=== PATIENT | male | born 1945 | race African-American/Black ===

== ENCOUNTER 2019-12-04 12:45 | Inpatient (IN) | payer MEDICARE, MEDICAID ==
[~2019-12-04] VITALS: Ht 170.2 cm; Wt 75.7 kg
--- NOTE | 2019-12-04 13:00 | NUR ---
BRANDON MILIAN 73 YEAR OLD MALE FROM [facility] FOR G TUBE REPLACEMENT. ALERT AND ORIENTED X1-2, BREATHING EVEN AND UNLABORED, ON CONTINUOUS O2 AT 2 LPM. NOTED WITH G-TUBE SITE. NOTED WITH F/C. NOTED WITH RIGHT FOOT SORE AND KERLIX WRAP. WAITING TO BE SEEN BY
--- NOTE | 2019-12-04 13:14 | NUR ---
CALLED NURSING SUP FOR M/S BED.
[2019-12-04 13:16] LABS: APPEARANCE,URINE Clear (CLEAR); BILIRUBIN,URINE MODERATE (NEGATIVE); BLOOD, URINE Large Ery/uL (NEGATIVE); COLOR,URINE Yellow (YELLOW); KETONES,URINE Trace (NEGATIVE); LEUKOCYTE ESTERASE ,URINE Trace (NEGATIVE); NITRITE, URINE Negative (NEGATIVE); PROTEIN,URINE 100 mg/dl (NEGATIVE); UGLUCOSE Negative (NEGATIVE)
[2019-12-04] MEDS ORDERED: IV NS 0.9% 1,000 ML BAG IV ONE ×2 (13:30→14:30)
--- NOTE | 2019-12-04 13:38 | NUR ---
PAGED [facility].
--- NOTE | 2019-12-04 13:40 | NUR ---
NURSING SUP GAVE M/S BED 119-2.
[2019-12-04 13:57] LABS: BASOPHILS % (AUTO) 0.1 % (0.0-2.0); HEMATOCRIT 34 % (39-51); HEMOGLOBIN 10.8 g/dL (13.5-17.5); LYMPHOCYTES # (AUTO) 0.5 /CMM (0.8-4.8); LYMPHOCYTES % (AUTO) 2.2 % (20.0-44.0); MEAN CORPUSCULAR HGB CONC 32 g/dl (31.0-36.0); MEAN CORPUSCULAR VOLUME 90 fL (80-96); NEUTROPHILS # (AUTO) 23.4 /CMM (1.8-8.9); NEUTROPHILS % (AUTO) 93.7 % (43.0-81.0); PLATELET COUNT (AUTO) 568 /CMM (150-450); RED BLOOD CELL COUNT(AUTO) 3.72 MIL/uL (4.5-6.0)
[2019-12-04] MEDS ORDERED: LACT-209 (14:02)
[2019-12-04] MEDS ORDERED: CRAN400C GT (14:02)
[2019-12-04] MEDS ORDERED: RISP0.5T20 GT (14:02)
[2019-12-04] MEDS ORDERED: ASPI-605 GT (14:02)
[2019-12-04] MEDS ORDERED: MEMA10TA GT (14:02)
[2019-12-04] MEDS ORDERED: ZINC1CAP3 GT (14:02)
[2019-12-04] MEDS ORDERED: PHEN100C4 GT (14:02)
[2019-12-04] MEDS ORDERED: MULT-439 GT (14:02)
[2019-12-04] MEDS ORDERED: LISI40TA4 GT (14:02)
[2019-12-04] MEDS ORDERED: LEVE500T9 GT (14:02)
[2019-12-04] MEDS ORDERED: LORA-259 GT (14:02)
[2019-12-04] MEDS ORDERED: IPRA3AMP23 IH (14:02)
[2019-12-04] MEDS ORDERED: HYDR-4384 GT (14:02)
[2019-12-04] MEDS ORDERED: FAMO-131 GT (14:02)
[2019-12-04] MEDS ORDERED: AMLO10TA4 GT (14:02)
[2019-12-04] MEDS ORDERED: ASCO500C16 GT (14:02)
[2019-12-04] MEDS ORDERED: ACET325T53 MC (14:02)
[2019-12-04] MEDS ORDERED: APIX5TAB4 GT (14:02)
[2019-12-04] MEDS ORDERED: AMIN30LI2 GT (14:02)
[2019-12-04 14:06] LABS: BACTERIA,URINE None seen /HPF (None Seen); RBC,URINE 51-80 /HPF (0-2); SQUAMOUS EPITHELIAL CELL,UR Moderate /HPF (None Seen); WBC,URINE 0-2 /HPF (0-3)
[2019-12-04 14:09] LABS: ALANINE AMINOTRANSFERASE 29 U/L (12-78); ALBUMIN 2.1 g/dL (3.4-5.0); ALKALINE PHOSPHATASE 183 U/L (46-116); ASPARTATE AMINOTRANSFERASE 38 U/L (15-37); BILIRUBIN,DIRECT 0.6 mg/dL (0.0-0.2); BILIRUBIN,TOTAL 0.9 mg/dL (0.2-1.0); CALCIUM, SERUM 8.9 mg/dL (8.5-10.1); CARBON DIOXIDE 26 mmol/L (21-32); CHLORIDE 98 mmol/L (98-107); CREATININE 3.2 mg/dL (0.6-1.3); GLUCOSE 134 mg/dL (74-106); SODIUM SERUM 137 mmol/L (136-145); TOTAL PROTEIN, SERUM 7.8 g/dL (6.4-8.2)
[2019-12-04 14:21] LABS: UREA NITROGEN, BLOOD 85 mg/dL (7-18)
[2019-12-04] MEDS ORDERED: PIPERACILLIN /TAZOBACTAM 3.375 G in IV D5W 50 ML IV ONE (14:30)
[2019-12-04] MEDS ORDERED: VANCOMYCIN 1 GM in IV D5W 250 ML IV ONE (14:30)
[2019-12-04 14:39] LABS: PHENYTOIN (DILANTIN) 3.6 ug/ml (10.0-20.0)
[2019-12-04] MEDS ORDERED: IV D5/0.45 NACL 1,000 ML IV PRN (15:53)
[2019-12-04] MEDS ORDERED: MAGNESIUM HYDROXIDE 30 ML UDC PO PRN (16:00)
[2019-12-04] MEDS ORDERED: Z GUARD REMEDY 2 OZ OINT TP PRN (16:00)
[2019-12-04] MEDS ORDERED: MAG HYDROX/AL HYDROX/SIMETH 30 ML UDC PO PRN (16:00)
[2019-12-04] MEDS ORDERED: LORAZEPAM 1 MG TABLET GT PRN (16:00)
[2019-12-04] MEDS ORDERED: ONDANSETRON HCL/PF 4 MG/2 ML VIAL IVP PRN (16:00)
[2019-12-04] MEDS ORDERED: HYDROCODONE/APAP 5/325MG 1 EACH TABLET GT PRN (16:00)
[2019-12-04] MEDS ORDERED: ACETAMINOPHEN 325 MG TABLET PO PRN (16:00)
[2019-12-04] MEDS ORDERED: Medication Not On Formulary EA (Ipratropium/Albuterol Sulfate (Duoneb 2.5-0.5 Mg/3 Ml So IH PRN (16:00)
[2019-12-04] MEDS ORDERED: ACETAMINOPHEN 650 MG/20.3 ML UDC GT PRN (16:30)
[2019-12-04] MEDS ORDERED: MAG HYDROX/AL HYDROX/SIMETH 30 ML UDC GT PRN (16:41)
[2019-12-04] MEDS ORDERED: MAGNESIUM HYDROXIDE 30 ML UDC GT PRN (16:42)
[2019-12-04 16:43] LABS: BAND % (MANUAL) 69 % (0.0-5.0); LYMPHOCYTES % (MANUAL) 3 % (16-48); MONOCYTES % (MANUAL) 1 % (0-11.0); NEUTROPHILS % (MANUAL) 27 (42-76)
[2019-12-04] MEDS: MEMANTINE HCL 5 MG TABLET GT SCH (17:00)
[2019-12-04] MEDS ORDERED: Medication Not On Formulary EA (Cranberry 400 MG) GT SCH (17:00)
[2019-12-04] MEDS ORDERED: IPRATROPIUM NEB FS 0.5 MG/2.5 ML AMPUL.NEB NEB PRN (17:00)
[2019-12-04] MEDS ORDERED: ALBUTEROL FS 2.5 MG/3 ML VIAL.NEB NEB PRN (17:00)
--- NOTE | 2019-12-04 17:12 | NUR ---
REPORT GIVEN TO FIFI IN JAZZY TO CONTINUE LUISA
[2019-12-04] MEDS ORDERED: ONDANSETRON HCL/PF 4 MG/2 ML VIAL IVP ONE (17:30)
[2019-12-04] MEDS ORDERED: MORPHINE SULFATE INJ 2 MG/ML DISP.SYRIN IV ONE (17:30)
[2019-12-04 18:00] VITALS: BP 94/56
[2019-12-04] MEDS ORDERED: FEE PK DOSING 1 MIN EA MC ONE (18:06)
--- NOTE | 2019-12-04 18:57 | NUR ---
REPORT RN REPORT TAKEN FROM AINSLEY IN EMERGENCY ROOM PT PT ADMITTED UNDER [place] [facility] FOR PEG DISLODGEMENT AND IR GUIDED REPLACEMENT. PT AxO 1 NAME VARIOUS WOUNDS ABDOMINAL SORES ALL OVER BODY PHOTOS TAKEN IN CHART, PT HAS TWO PIV RIGHT AND LEFT 20 G ARMS WILL GIVE RN REPORTTO PHARMACIST HELPER RN.
--- NOTE | 2019-12-04 19:20 | NUR ---
JAZZY RN OPENING NOTES RECEIVED PATIENT IN BED, AWAKE, A/OX1. APPEARS LETHARGIC. ON TELE MONITOR AFIB WITH HR 160'S-180'S, AM RN MADE AWARE AND ORDERED STAT EKG. ON OXYGEN 2L VIA NASAL CANNULA, TOLERATING WELL, NO SOB OR RESPIRATORY DISTRESS NOTED. SKIN IS COOL TO TOUCH, WARM BLANKET GIVEN. NG TUBE ON RIGHT NARE WITH BROWN COLORED DRAIN NOTED, CLAMPED. GTUBE SITE NOTED LEAKING, WILL CHANGE DRESSING PRN, CLAMPED. IV SITE LEFT AC 20G AND RIGHT AC 20G, BOTH FLUSHING AND PATENT, SALINE LOCKED, SITES C/D/I. SAFETY MEASURES IN PLACE; CALL LIGHT WITHIN REACH, SIDE RAILS UP X2, HOB ELEVATED, BED LOCKED AND IN LOWEST POSITION. WILL CONTINUE TO MONITOR CLOSELY.
--- NOTE | 2019-12-04 19:35 | NUR ---
PT NOT ON UNIT AT 1700 OR 1730 NO MEDICATIONS GIVEN
--- NOTE | 2019-12-04 19:56 | NUR ---
JAZZY RN NOTES PATIENT STAT EKG RESULT SENT TO RENT AND MISCELLANEOUS REMITTANCE CLERK HOSPITALIST. AWAITING FOR RESPONSE.
[2019-12-04 20:00] VITALS: BP 95/65
[2019-12-04] MEDS ORDERED: IV NS 0.9% 250 ML IV ONE (20:30)
--- NOTE | 2019-12-04 20:32 | NUR ---
JAZZY RN NOTES CRITICAL LAB CALLED BY HUONG LACTIC ACID 2.5; RADIO FREQUENCY ENGINEER HOSPITALIST MADE AWARE. AWAITING FOR RESPONSE.
[2019-12-04] MEDS: MEROPENEM 500 MG in IV NS 0.9% 50 ML IV SCH (20:43)
--- NOTE | 2019-12-04 20:55 | NUR ---
JAZZY RN NOTES SOCKET PULLER HOSPITALIST ORDERED 250ML BOLUS, PATIENT BP 97/54 STATUS POST 250ML BOLUS. NO NEW ORDERS NOTED.
[2019-12-04] MEDS ORDERED: APIXABAN 5 MG TABLET GT SCH (21:00)
[2019-12-04] MEDS: LEVETIRACETAM SOL (5 ML) 100 MG/ML UDC GT SCH (21:14)
[2019-12-04] MEDS: FAMOTIDINE (20 MG) 20 MG TABLET GT SCH (21:14)
[2019-12-04] MEDS: PHENYTOIN SUSP UDC 100 MG/4 ML UDC GT SCH (21:14)
[2019-12-04] MEDS: risperiDONE LIQUID 1 MG/ML ML GT SCH (21:15)
[2019-12-04] MEDS ORDERED: DILTIAZEM HCL 25 MG IV IV ONE (23:00)
[2019-12-05] VITALS: BP 109/67
--- NOTE | 2019-12-05 00:12 | NUR ---
JAZZY RN NOTES PATIENT NOTED WITH LOW URINE OUTPUT, 40ML SINCE 1930. LE CATH FLUSHING AND PATENT. CHECKED WITH BLADDER SCANNER SHOWED 120ML. CHARGE NURSE MADE AWARE AND STATED TO CONTINUE MONITORING. WILL CONT TO MONITOR PT CLOSELY.
--- NOTE | 2019-12-05 03:59 | NUR ---
JAZZY RN NOTES PATIENT STILL HAVE LOW URINE OUTPUT. SUIT ATTENDANT HOSPITALIST MADE AWARE. NNO NOTED. WILL CONT TO MONITOR PT.
[2019-12-05 04:00] VITALS: BP 120/71
[2019-12-05] MEDS: PHENYTOIN SUSP UDC 100 MG/4 ML UDC GT SCH ×3 (05:54→20:33)
--- NOTE | 2019-12-05 06:50 | NUR ---
JAZZY RN CLOSING NOTES PATIENT SLEEPING IN BED, BUT EASY TO AROUSE, A/OX1. ON TELE MONITOR AFIB WITH HR 150'S, MD AWARE. ON OXYGEN 2L VIA NASAL CANNULA, TOLERATING WELL, NO SOB OR RESPIRATORY DISTRESS NOTED. NG TUBE ON RIGHT NARE WITH BROWN COLORED DRAIN NOTED, CLAMPED, CHARGE NURSE STATED TO FOLLOW UP GTF TODAY. GTUBE SITE NOTED LEAKING, CHANGED DRESSING PRN, CLAMPED. IV SITE LEFT AC 20G AND RIGHT AC 20G, BOTH FLUSHING AND PATENT, SITES C/D/I. ON GOING IVF D5 1/2 NS RUNNING AT 75ML/HR, NO S/S OF INFILTRATION/INFECTION. SAFETY MEASURES MAINTAINED. REPOSITIONED Q2H. KEPT PT CLEAN, DRY, AND COMFORTABLE. WILL ENDORSE TO AM RN FOR LUISA.
[2019-12-05 06:53] LABS: BASOPHILS # (AUTO) 0.1 /CMM (0.0-0.2); BASOPHILS % (AUTO) 0.3 % (0.0-2.0); EOSINOPHILS % (AUTO) 0.1 % (0.0-6.0); HEMATOCRIT 32 % (39-51); HEMOGLOBIN 10.3 g/dL (13.5-17.5); LYMPHOCYTES # (AUTO) 0.4 /CMM (0.8-4.8); LYMPHOCYTES % (AUTO) 1.7 % (20.0-44.0); MEAN CORPUSCULAR HGB CONC 32 g/dl (31.0-36.0); MEAN CORPUSCULAR VOLUME 90 fL (80-96); MONOCYTES # (AUTO) 0.9 /CMM (0.1-1.30); MONOCYTES % (AUTO) 4.2 % (2.0-12.0); NEUTROPHILS % (AUTO) 93.7 % (43.0-81.0); PLATELET COUNT (AUTO) 469 /CMM (150-450); RED BLOOD CELL COUNT(AUTO) 3.57 MIL/uL (4.5-6.0); WHITE BLOOD COUNT (AUTO) 22.4 K/uL (4.3-11.0)
[2019-12-05 07:13] LABS: CARBON DIOXIDE 20 mmol/L (21-32); CHLORIDE 101 mmol/L (98-107); CREATININE 3.5 mg/dL (0.6-1.3); GLUCOSE 174 mg/dL (74-106); MAGNESIUM 2.6 mg/dL (1.8-2.4); PHOSPHORUS 5.4 mg/dL (2.5-4.9); POTASSIUM 4.5 mmol/L (3.5-5.1); SODIUM SERUM 137 mmol/L (136-145)
[2019-12-05 07:19] LABS: UREA NITROGEN, BLOOD 89 mg/dL (7-18)
--- NOTE | 2019-12-05 07:20 | NUR ---
RN OPENING NOTE: RECEIVED PATIENT IN BED. ALERT, AWAKE AND ORIENTED X1. ON CONT. O2 VIA NC @ 2LPM, TOLERATING WELL. NO SOB, NO RESP. DISTRESS NOTED. TELE MONITORING SHOWING SVT @ 150S. MD IS AWARE. WITH NGT ON RIGHT NARE AND GTUBE. REPORTED RECEIVED FROM NIGHT NURSE THAT PATIENT HAS COFFEE GROUND RESIDUAL VIA NGT AND GTUBE IS NOT CLEARED YET TO BE USED TO DO IT BEING DISLODGED. WILL CLARIFY AND REPORT TO MD ON SHIFT. IV SITES CLEAN, DRY, PATENT AND INTACT. NO PAIN NOTED ON PATIENT. LE CATHETER DRAINING YELLOW URINE. SAFETY ENSURED AND OBSERVED. CALL LIGHT IN REACH. BED LOCKED, LOW AND AT SEMI-HILL'S POSITION. SIDE RAILS UP X3. WILL CONTINUE TO MONITOR.
[2019-12-05 08:00] VITALS: BP 122/76
[2019-12-05] MEDS: MEROPENEM 500 MG in IV NS 0.9% 50 ML IV SCH ×2 (08:16→19:45)
[2019-12-05] MEDS: LEVETIRACETAM SOL (5 ML) 100 MG/ML UDC GT SCH ×2 (09:10→20:33)
[2019-12-05] MEDS: FAMOTIDINE (20 MG) 20 MG TABLET GT SCH ×2 (09:10→20:34)
[2019-12-05] MEDS: MEMANTINE HCL 5 MG TABLET GT SCH ×2 (09:11→17:18)
[2019-12-05] MEDS: MULTIVIT W/MINERALS 1 TAB TABLET GT SCH (09:11)
[2019-12-05] MEDS: ZINC SULFATE 220 MG CAPSULE GT SCH (09:11)
[2019-12-05] MEDS: ASCORBIC ACID 500 MG TABLET GT SCH (09:11)
[2019-12-05] MEDS: PROSOURCE / PROSTAT (PYXIS) 30 ML UDC GT SCH (09:11)
[2019-12-05] MEDS: AMLODIPINE BESYLATE 10 MG TABLET GT SCH (09:11)
--- NOTE | 2019-12-05 09:30 | NUR ---
RN NOTE: REPORTED TO DR. FELIZ ABOUT PATIENT'S COFFEE GROUND RESIDUAL FROM NGT. PLACEMENT WAS VERIFIED PRIOR VIA RESIDUAL AND AUSCULTATION. AWAITING RESPONSE.
[2019-12-05] MEDS: HYDROCODONE/APAP 5/325MG 1 EACH TABLET PO PRN (09:31)
--- NOTE | 2019-12-05 09:45 | NUR ---
RN NOTE: OCCULT BLOOD STOOL ORDERED FOR PATIENT DUE TO COFFEE GROUND RESIDUAL REPORTED TO DR. FELIZ. GT FEEDING STILL ON HOLD.
[2019-12-05] MEDS: risperiDONE LIQUID 1 MG/ML ML GT SCH ×2 (10:46→21:09)
[2019-12-05 12:00] VITALS: BP 120/89
--- NOTE | 2019-12-05 14:30 | NUR ---
RN NOTES: SPOKE WITH RADIOLOGIST MARTINEZ PEDROZA REGARDING PATIENT'S PELVIC CT WITHOUT CONTRAST AND WANTED NURSE TO RELAY TO MD ABOUT FINDINGS REGARDING PRESENCE OF GAS AND FLUID IN THE PERITONEUM WHICH IS PROBABLY CAUSED BY A GTUBE NOT IN PLACE OR HOLLOW VISCOUS INJURY AND POSSIBILITY OF URINARY CATHETER BEING IN THE PROSTATE. RELAYED MESSAGE TO DR. FELIZ AND NICOLE FROM ID. URINARY CATHETER TO BE REPLACED.
--- NOTE | 2019-12-05 15:10 | NUR ---
RN NOTE: REPORTED TO DR. FELIZ ABOUT PATIENT'S COFFEE GROUND EMESIS. LOW INTERMITTENT SUCTION VIA NGT ORDERED. ALSO CLARIFIED PATIENT'S DIET. HOLD TUBE FEEDING, MEDS OK TO BE GIVEN VIA NGT AND DR. FELIZ WILL HAVE SURGERY AND GI TO CONSULT WITH PATIENT.
[2019-12-05 16:00] VITALS: BP 109/73
[2019-12-05] MEDS ORDERED: DIATR MEGLU/DIATRIZOATE SODIUM 30 ML BOTTLE (GASTROGRAPHIN) ONE ×2 (16:29→16:37)
--- NOTE | 2019-12-05 16:41 | NUR ---
RN NOTE: DR. KATE CLEMONS CAME TO SEE PATIENT. ABDOMINAL KUB WAS DONE AT BEDSIDE
--- NOTE | 2019-12-05 17:13 | NUR ---
RN NOTE: SPOKE WITH DR. KATE CLEMONS REGARDING PATIENT GTUBE ISSUE. ORDER FOR CONSENT FOR GTUBE PLACEMENT FOR 12/06/19 IN AM AND GRAVITY DRAINAGE FOR CURRENT LE IN PLACE AT CURRENT GTUBE STOMA. ALSO INSTRUCTED NURSE TO UPDATE MD WHEN ABDOMINAL KUB RESULTS ARE POSTED.
--- NOTE | 2019-12-05 18:15 | NUR ---
RN NOTE: INFORMED DR. CLEMONS OF PATIENT'S ABDOMINAL X-RAY RESULTS AND ACKNOWLEDGED WILL BE UNDERGOING A GASTROSTOMY TUBE PLACEMENT ON 12/05/2019 AT 0730. INFORMED MD ABOUT PATIENT NOT HAVING ANY RESPONSIBLE GREEN PARTY. RN WILL PREPARE CONSENT FOR PROCEDURE, BLOOD TRANSFUSION AND ANESTHESIA TO BE SIGNED BY 2 DOCTORS.
--- NOTE | 2019-12-05 19:05 | NUR ---
JAZZY RN OPENING NOTES RECEIVED PATIENT IN BED, AWAKE, CONFUSED. APPEARS LETHARGIC. ON TELE MONITOR AFIB WITH HR 150'S. ON OXYGEN 2L VIA NASAL CANNULA, TOLERATING WELL, NO SOB OR RESPIRATORY DISTRESS NOTED. NG TUBE ON RIGHT NARE WITH COFFEE GROUND DRAIN NOTED, ON LOW INTERMITTENT SUCTION NOTED. GTUBE SITE WITH LE DRAINING THROUGH GRAVITY. IV SITE LEFT AC 20G AND RIGHT AC 20G, BOTH FLUSHING AND PATENT, SITES C/D/I. ON GOING IVF NS 125ML/HR, NO INFILTRATION NOTED. FOR LE INSERTION. SAFETY MEASURES IN PLACE; CALL LIGHT WITHIN REACH, SIDE RAILS UP X2, HOB ELEVATED, BED LOCKED AND IN LOWEST POSITION. WILL CONTINUE TO MONITOR CLOSELY. Addendum: 12/05/19 at 2150 by SAVANA FRY RN CLARIFICATION: CATALOGUE COMPILER OPENING NOTES NOT JAZZY NOTES
--- NOTE | 2019-12-05 19:30 | NUR ---
RN CLOSING NOTE: PATIENT IN BED. AWAKE AND CONFUSED. ON CONT. O2 VIA NC @ 2LPM, TOLERATING WELL. NO SOB, NO RESP. DISTRESS NOTED. TELE MONITORING SHOWING ST @ 150S. MD IS AWARE. WITH NGT ON RIGHT NARE WITH LOW INTERMITTENT SUCTION WITH COFFEE GROUND FLUID NOTED. IV SITES CLEAN, DRY, PATENT AND INTACT. SEEN BY DR. CLEMONS ON SHIFT. GTUBE SITE WAS REMOVED AND REPLACED WITH LE CATHETER CONNECTED TO BAG TO DRAIN VIA GRAVITY. PATIENT FOR GT PLACEMENT TOMORROW MORNING WITH CONSENTS TO BE SIGNED BY MDS. NO RESPONSIBLE PARTIES LISTED FOR PATIENT PER FACE SHEET AND CONGREGATE FACILITY HE WAS PREVIOUSLY ADMITTED TO. DR. FELIZ AND DR. CLEMONS AWARE. PATIENT REINSERTED WITH LE CATHETER ON SHIFT. LE FLUSHING DONE WITH NO DRAINAGE NOTED. DR. FELIZ AWARE AND FOR REINSERTION FOR PROPER PLACEMENT. LE CATHETER REMOVED. CALL LIGHT IN REACH. BED LOCKED, LOW AND AT SEMI-HILL'S POSITION. SIDE RAILS UP X3. ENDORSED TO COAT PRESSER FOR LUISA. ANGELICA SAWANT WILL REINSERT LE CATHETER AND WILL FOLLOW-UP WITH SIGNATURES FOR PROCEDURE TOMORROW.
[2019-12-05] MEDS: IV NS 0.9% 1,000 ML IV PRN (19:44)
[2019-12-05 20:00] VITALS: BP 157/102
--- NOTE | 2019-12-05 20:04 | NUR ---
POWER PLANT OPERATOR NOTES CHIEF PHARMACIST HOSPITALIST MADE AWARE OF SCHEDULED PEG TUBE PLACEMENT TOMORROW, CONSENT NOT SIGNED. PATIENT HAS NO FAMILY MEMBERS AVAILABLE. ALSO, MADE AWARE REGARDING LE REINSERTION D/T PREVIOUS LE CATH HAS NO OUTPUT. AWAITING FOR RESPONSE.
--- NOTE | 2019-12-05 21:30 | NUR ---
STARCH MANGLE TENDER NOTES MAILHOUSE OPERATOR HOSPITALIST MADE AWARE OF UNSUCCESSFUL INSERTION OF LE CATH BY ICU CHARGE NURSE D/T RESISTANCE AND DARK RED BLOOD DRAIN FROM THE LE. SUSPECTED TRAUMA. ALSO MADE AWARE OF BP 157/102 WITH IVF RUNNING AT 125ML/HR. ASKED IF HE WANTS TO DECREASE IVF. NO NEW ORDERS NOTED.
[2019-12-06] VITALS (33 sets, daily range): BP systolic 71–127; BP diastolic 35–87
[2019-12-06] MEDS ORDERED: VANCOMYCIN HCL 0.75 GM in IV D5W 250 ML IV SCH (03:00)
[2019-12-06] MEDS: PHENYTOIN SUSP UDC 100 MG/4 ML UDC GT SCH ×3 (04:58→20:54)
[2019-12-06] MEDS: IV NS 0.9% 1,000 ML IV PRN ×4 (05:51→20:51)
[2019-12-06 06:24] LABS: BASOPHILS % (AUTO) 0.1 % (0.0-2.0); EOSINOPHILS % (AUTO) 0.1 % (0.0-6.0); HEMATOCRIT 32 % (39-51); HEMOGLOBIN 10.4 g/dL (13.5-17.5); LYMPHOCYTES # (AUTO) 0.5 /CMM (0.8-4.8); LYMPHOCYTES % (AUTO) 3.4 % (20.0-44.0); MEAN CORPUSCULAR HGB CONC 33 g/dl (31.0-36.0); MEAN CORPUSCULAR VOLUME 90 fL (80-96); MONOCYTES % (AUTO) 6.6 % (2.0-12.0); NEUTROPHILS # (AUTO) 13.1 /CMM (1.8-8.9); NEUTROPHILS % (AUTO) 89.8 % (43.0-81.0); PLATELET COUNT (AUTO) 458 /CMM (150-450); RED BLOOD CELL COUNT(AUTO) 3.54 MIL/uL (4.5-6.0); WHITE BLOOD COUNT (AUTO) 14.6 K/uL (4.3-11.0)
[2019-12-06] MEDS ORDERED: BUPIVACAINE 0.5 % PF 150 MG/30 ML VIAL ONE (06:30)
[2019-12-06] MEDS ORDERED: ANESTHESIA TRAY IN PYXIS 1 EA TRAY MC ONE (06:30)
[2019-12-06 06:49] LABS: ALANINE AMINOTRANSFERASE 82 U/L (12-78); ALBUMIN 1.6 g/dL (3.4-5.0); ALKALINE PHOSPHATASE 146 U/L (46-116); ASPARTATE AMINOTRANSFERASE 109 U/L (15-37); BILIRUBIN,TOTAL 0.7 mg/dL (0.2-1.0); CALCIUM, SERUM 8.3 mg/dL (8.5-10.1); CARBON DIOXIDE 18 mmol/L (21-32); CHLORIDE 101 mmol/L (98-107); CREATININE 4.6 mg/dL (0.6-1.3); GLUCOSE 162 mg/dL (74-106); MAGNESIUM 2.9 mg/dL (1.8-2.4); PHOSPHORUS 6.2 mg/dL (2.5-4.9); POTASSIUM 4.6 mmol/L (3.5-5.1); SODIUM SERUM 137 mmol/L (136-145); TOTAL PROTEIN, SERUM 6.9 g/dL (6.4-8.2)
[2019-12-06 06:57] LABS: UREA NITROGEN, BLOOD 106 mg/dL (7-18)
[2019-12-06] MEDS ORDERED: FENTANYL PF 100MCG/2ML AMPUL ONE (07:00)
--- NOTE | 2019-12-06 07:13 | NUR ---
CARBIDER CLOSING NOTES TRANSFER PT TO OR FOR HIS GTUBE REPLACEMENT PROCEDURE . NO ACUTE CHANGES OF CONDITION NOTED , ON NASAL CANNULA 2L 02 O2 SAT >92% . FROM TELE MONITOR ST WITH HR 150'S. ON OXYGEN 2L VIA NASAL CANNULA, NO SOB OR RESPIRATORY DISTRESS NOTED. IV SITES INTACT AND PATENT. GTUBE SITE DRAIN INTACT WITH YELLOWISH FLUID DRAINING, NGTUBE ON PLACE WITH COFFEE GROUND DRAIN . WOUND TX DONE ORDERED. KEPT PT CLEAN, DRY,PREOP CHECKLIST SECURED, CONSENT NOT YET SIGNED MD AWARE WITH INSTRUCTION THAT HE WILL SECURE THE CONSENT ONCE HE CAME, GOT A WORD FROM YARD COUPLER THAT DR GALVAN WILL ALSO DO CARDIOVERSION AFTER THE SURGERY, CONSENT WAS MADE, JAZZY CHARGE NURSE MADE AWARE, GIVE REPORT TO YARD COUPLER JUNO FOR CONTINUITY OF CARE TO THE PT. Addendum: 12/06/19 at 0722 by THAI CLOUD RN COLLECTION SYSTEMS MODELER TO OR NOTES NOT CARBIDER CLOSING NOTES
--- NOTE | 2019-12-06 07:30 | NUR ---
rn note received report on pt while pt is in operating room.
[2019-12-06] MEDS: risperiDONE LIQUID 1 MG/ML ML GT SCH ×2 (09:00→20:56)
[2019-12-06] MEDS: FAMOTIDINE (20 MG) 20 MG TABLET GT SCH ×2 (09:00→20:54)
[2019-12-06] MEDS: MEMANTINE HCL 5 MG TABLET GT SCH ×2 (09:00→17:00)
[2019-12-06] MEDS: LEVETIRACETAM SOL (5 ML) 100 MG/ML UDC GT SCH ×2 (09:00→20:54)
[2019-12-06] MEDS: ASCORBIC ACID 500 MG TABLET GT SCH (09:00)
[2019-12-06] MEDS: MULTIVIT W/MINERALS 1 TAB TABLET GT SCH (09:00)
[2019-12-06] MEDS: PROSOURCE / PROSTAT (PYXIS) 30 ML UDC GT SCH (09:00)
[2019-12-06] MEDS: ZINC SULFATE 220 MG CAPSULE GT SCH (09:00)
[2019-12-06] MEDS: AMIODARONE HCL 200 MG TABLET GT SCH ×3 (09:00→17:00)
[2019-12-06] MEDS: AMLODIPINE BESYLATE 10 MG TABLET GT SCH (09:00)
[2019-12-06] MEDS: MEROPENEM 500 MG in IV NS 0.9% 50 ML IV SCH ×2 (09:38→19:43)
--- NOTE | 2019-12-06 09:56 | NUR ---
rn note pt arrived from OR, lethargic, bp 87/53, hr 122, saturation 92%, new gtube clamped and dressing clean and dry, intact. ng tube in place in r nare, clamped, positive placement no residual. iv r ac intact and left thumb 24 g intact. will resume preop orders, gtube may be used tomorrow according to dr Babin and OR nurse. will monitor further. sitter dory at bedside, call light within reach
--- NOTE | 2019-12-06 11:15 | NUR ---
rn note pt Sbp low =74mmhg, dr fulton reached and had order for icu transfer and piccline insertion. will carry out.
--- NOTE | 2019-12-06 11:45 | NUR ---
pt transfered to ICU via gurney for hypotension. Vitals on admission b/p 100/64 hr 123 temp 99.0 ax O2 88% on 4 ltrs ngt to right nares clamped. ivf to left thumb NS @ 125 ml/hr skin cold and dry no s/s of respiratory distress or acute pain . pt nonverbal moans when repositioned. placed on monitor repositioned for comfort. orders for Levophed to keep map >65 not initiated pt b/p stable . safety and aspiration precautions in place bed in low locked position
--- NOTE | 2019-12-06 11:50 | NUR ---
pt connected to low intermittent suction
[2019-12-06] MEDS ORDERED: NOREPINEPHRINE 8 MG in IV D5W 500 ML IV PRN (12:00)
--- NOTE | 2019-12-06 12:41 | NUR ---
martinez cath inserted 16 fr Kuday hematuria then clear urine after insertion
--- NOTE | 2019-12-06 15:30 | NUR ---
BED BATH AND ORAL CARE RENDERED PT TOLERATED WELL
--- NOTE | 2019-12-06 16:54 | NUR ---
ORDERS OBTAINED FROM DR GALVAN. GIVE NS@ 250 ML/HR X 2LTRS FOR LOW BP
[2019-12-06] MEDS ORDERED: IV NS 0.9% 1,000 ML IV PRN (17:00)
--- NOTE | 2019-12-06 17:41 | NUR ---
NEW ORDERS FOR ELIZABETH FOR LOW BP
[2019-12-06] MEDS ORDERED: PHENYLEPHRINE 40 MG in IV D5W 250 ML IV PRN (18:00)
--- NOTE | 2019-12-06 18:45 | NUR ---
ELIZABETH STARTED FOR DECREASED BP AND MAP <65.
--- NOTE | 2019-12-06 18:59 | NUR ---
ICU NOTES PT REMAINED AFEBRILE THROUGHOUT SHIFT. SATURATING 91% ON 5LTRS NASAL CANNULA NO DISTRESS NOTED. NO ACUTE PAIN . NGT TO RIGHT NARES TO INTERMITTENT SUCTION DARK GREEN CONTENT IN CONTAINER LE CATH DRAINING MINIMAL URINE TO GRAVITY. REMAINS TACHY ON MONITOR ELIZABETH STARTED @ 50 MCG/MIN FOR DECREASED BP. MULTIPLE WOUNDS CONSULT ORDERED. GRETTA MIDLINE #18 GAUGE RUNNING ELIZABETH AND NS @ 250 ML/HR FOR 2 LTRS AND NS 125ML/HR CONTINUOS SAFETY AND ASPIRATION PRECAUTIONS IN PLACE BED IN LOW LOCKED POSITION WILL ENDORSE TO NOC
--- NOTE | 2019-12-06 19:30 | NUR ---
RN NOTES RECEIVED PATIENT EYES IS OPEN, NON VERBAL WITH O2 5LPM VIA NC. SATURATION 94%. WARMTH TO TOUCH , AFEBRILE. ST ON TELE MONITOR HR 120'S WITH NGT N LIS WITH DARK GREENISH COLOR OUTPUT. NEW GT CLAMPED AT THIS TIME PER MD OK TO USE IT TOMORROW 12/07. IV ON GRETTA MIDLINE INTACT AND PATENT WITH NS @ 250 ML/HR AND NS @ 125 ML/HR WELL ELIZABETH @ 50 MCG/MIN. PATIENT HAS LE CATH DRAINED VIA GRAVITY WITH YELLOWISH SMALL AMT COLOR URINE. TURNED AND REPOSITIONED PATIENT COMFORTABLE. OFFLOADED EXT WITH PILLOWS. KEPT PT CLEAN AND DRY. WILL CLOSELY MONITOR.
[2019-12-06] MEDS: HYDROCODONE/APAP 5/325MG 1 EACH TABLET PO PRN (19:45)
[2019-12-07] VITALS (41 sets, daily range): BP systolic 90–139; BP diastolic 44–79
[2019-12-07] MEDS: HYDROCODONE/APAP 5/325MG 1 EACH TABLET PO PRN (01:36)
--- NOTE | 2019-12-07 02:00 | NUR ---
RN NOTES NEOSYNEPHRINE OFF, SBP AND MAP MAINTAINED >65 MMHG
[2019-12-07 04:17] LABS: BASOPHILS % (AUTO) 0.2 % (0.0-2.0); EOSINOPHILS % (AUTO) 0.1 % (0.0-6.0); HEMATOCRIT 23 % (39-51); HEMOGLOBIN 7.6 g/dL (13.5-17.5); LYMPHOCYTES # (AUTO) 0.4 /CMM (0.8-4.8); LYMPHOCYTES % (AUTO) 4.1 % (20.0-44.0); MEAN CORPUSCULAR HGB CONC 33 g/dl (31.0-36.0); MEAN CORPUSCULAR VOLUME 91 fL (80-96); MONOCYTES # (AUTO) 0.5 /CMM (0.1-1.30); MONOCYTES % (AUTO) 5.3 % (2.0-12.0); NEUTROPHILS # (AUTO) 8.7 /CMM (1.8-8.9); NEUTROPHILS % (AUTO) 90.3 % (43.0-81.0); PLATELET COUNT (AUTO) 375 /CMM (150-450); RED BLOOD CELL COUNT(AUTO) 2.56 MIL/uL (4.5-6.0); WHITE BLOOD COUNT (AUTO) 9.7 K/uL (4.3-11.0)
[2019-12-07] MEDS: IV NS 0.9% 1,000 ML IV PRN ×3 (04:18→22:43)
[2019-12-07 04:31] LABS: CALCIUM, SERUM 7.3 mg/dL (8.5-10.1); CARBON DIOXIDE 18 mmol/L (21-32); CHLORIDE 109 mmol/L (98-107); CREATININE 4.9 mg/dL (0.6-1.3); GLUCOSE 154 mg/dL (74-106); POTASSIUM 4.5 mmol/L (3.5-5.1); SODIUM SERUM 144 mmol/L (136-145); UREA NITROGEN, BLOOD 107 mg/dL (7-18)
[2019-12-07] MEDS: PHENYTOIN SUSP UDC 100 MG/4 ML UDC GT SCH ×3 (05:52→20:31)
--- NOTE | 2019-12-07 06:55 | NUR ---
RN NOTES PATIENT TOLERATED O2 5LPM VIA NC SATURATION KEPT >93%. AFEBRILE. VSS, OFF FROM PRESSOR SINCE 2 AM. CONTINUE ON LIS WITH LIGHT GREEN COLOR OUTPUT. PEG CLAMPED WILL RESUME TO USE AT 9AM PER MD. WITH LOW URINE OUTPUT FORM LE. INCONTINENT CARE RENDERED NO SIGNIFICANT CHANGES THROUGHOUT THE SHIFT. KEPT PT CLEAN AND DRY. PHOT TAKEN FOR WEEKLY ASSESSMENT.WILL ENDORSED CONTINUITY OF CARE TO AM NURSE.
--- NOTE | 2019-12-07 07:00 | NUR ---
MORTGAGE LOAN REVIEWER NOTES RECEIVED BEDSIDE REPORT FROM NOC. PT AWAKE RESTLESS IN BED WITH BILATERAL MITTENS. NO S/S OF RESPIRATORY DISTRESS SATURATING 100% ON 5 LTRS NC NO FACIAL GRIMACING NOTED ST 110 ON MONITOR. GT DRESSING INTACT AND CLAMPED. NGT TO RIGHT NARES TO INTERMITTENT SUCTION WITH THICK GREEN DRAINAGE NOTES IN CANISTER. LE CATH DRAINING MINIMAL URINE.JOSE ANGEL MIDLINE RUNNING NS@125 ML/HR . REPOSITIONED FOR COMFORT SAFETY AND ASPIRATION PRECAUTIONS IN PLACE HOB ELEVATE WILL CONT TO MONITOR ACCORDINGLY
[2019-12-07] MEDS: MEROPENEM 500 MG in IV NS 0.9% 50 ML IV SCH ×2 (08:17→20:31)
[2019-12-07] MEDS: ZINC SULFATE 220 MG CAPSULE GT SCH (09:18)
[2019-12-07] MEDS: LEVETIRACETAM SOL (5 ML) 100 MG/ML UDC GT SCH ×2 (09:18→20:31)
[2019-12-07] MEDS: risperiDONE LIQUID 1 MG/ML ML GT SCH ×2 (09:18→20:31)
[2019-12-07] MEDS: FAMOTIDINE (20 MG) 20 MG TABLET GT SCH ×2 (09:18→20:31)
[2019-12-07] MEDS: PROSOURCE / PROSTAT (PYXIS) 30 ML UDC GT SCH (09:18)
[2019-12-07] MEDS: ASCORBIC ACID 500 MG TABLET GT SCH (09:18)
[2019-12-07] MEDS: MULTIVIT W/MINERALS 1 TAB TABLET GT SCH (09:18)
[2019-12-07] MEDS: MEMANTINE HCL 5 MG TABLET GT SCH ×2 (09:18→17:17)
[2019-12-07] MEDS: HYDROCORTISONE SOD SUCCINATE 100 MG/2 ML VIAL IV SCH ×3 (09:18→17:17)
[2019-12-07] MEDS: AMIODARONE HCL 200 MG TABLET GT SCH ×3 (09:18→17:17)
--- NOTE | 2019-12-07 09:24 | NUR ---
WOUND CARE CONSULT: PT PRESENTS WITH MULTIPLE WOUNDS PRESENT ON ADMISSION INCLUDING SACRUM, HIP/BUTTOCK AREAS, KNEES AND LOWER EXTREMITIES, ALL PRESENT ON ADMISSION. RECOMMEND SURGICAL CONSULT AND DPM CONSULT. DR HAQUE AND DR JOSHI NOTIFIED OF CONSULT REQUESTS. RECOMMENDATIONS MADE FOR SKIN PROTECTION. DISCUSSED WITH NURSING STAFF. FIRST STEP LOW AIRLOSS MATTRESS ON ORDER. WILL SEE PRN. SKAGGS IN AGREEMENT WITH PLAN OF CARE. Addendum: 12/07/19 at 0926 by NATALIO BOWSER WNDNU Amended: Links added.
--- NOTE | 2019-12-07 09:30 | NUR ---
RECEIVED PHONE CALL FROM [facility] COURTNEY @ [phone] IN REGARDS TO PT POSSIBLY BEING EXPOSED TO C. AURIS BY PREVIOUS ROOMMATE AT FACILITY. FWD INFORMATION TO JIN INFECTIOUS DISEASE LEFT MESSAGE ON VOICEMAIL
--- NOTE | 2019-12-07 09:49 | NUR ---
TITRATED PT TO 2LTRS NC 02 SAT 100%
--- NOTE | 2019-12-07 11:50 | NUR ---
[facility] COURTNEY HERE TO OBTAIN SWAB FOR C. AURUS. JIN AT BEDSIDE TO PROVIDE SWAB PT PLACED ON ISOLATION PRECAUTION
[2019-12-07] MEDS ORDERED: LIDOCAINE 1%-EPI 1:100,000 20 ML VIAL TP ONE (12:00)
[2019-12-07] MEDS ORDERED: SILVER NITRATE APPLICATOR 1 EA BOX TP ONE (12:00)
--- NOTE | 2019-12-07 12:33 | NUR ---
HD CATH PLACED IN RIGHT EXTERNAL JUGULAR
--- NOTE | 2019-12-07 12:45 | NUR ---
PER JON WALTER AND CXR VERIFIED TO USE CATH FOR HD
--- NOTE | 2019-12-07 14:15 | NUR ---
PT RECEIVING HD AT BEDSIDE. 1 UNIT PRBCS GIVEN VIA HD
[2019-12-07] MEDS: HYDROGEL DRESSING 90 GM TUBE TP SCH (16:38)
[2019-12-07] MEDS: DAKINS QUARTER STRENGTH (0.125%) 480 ML BOTTLE TOP SCH (16:38)
--- NOTE | 2019-12-07 16:45 | NUR ---
BED BATH GIVEN ORAL CARE AND WOUND CARE RENDERED
[2019-12-07] MEDS: VANCOMYCIN 500 MG in IV D5W 100 ML IV PRN (17:19)
--- NOTE | 2019-12-07 17:27 | NUR ---
PER DR CLEMONS REMOVE NGT AND START TUBE FEEDING. NGT REMOVED PT TOLERATED
[2019-12-07] MEDS ORDERED: JEVITY 1.2 CAL 1,000 ML BOTTLE GT PRN (18:00)
--- NOTE | 2019-12-07 18:25 | NUR ---
ICU NOTES PT REMAINED AFEBRILE THROUGHOUT SHIFT. SATURATING 99% ON RA NO ACUTE PAIN NOTED. ST ON MONITOR WITH OCCASIONAL PVC ON ROUTINE AMIODARONE. LE CATH DRAINING MINIMAL URINE MULTIPLE WOUNDS. OK TO USE GTF FOR MEDS AND START FEEDING PER MD. JOSE ANGEL MIDLINE RUNNING NS @ 125 ML/HR. REPOSITIONED FOR COMFORT HOB ELEVATED SAFETY AND ISOLATION PRECAUTIONS IN PLACE BED IN LOW LOCKED POSITION.WILL ENDORSE TO NOC
--- NOTE | 2019-12-07 19:30 | NUR ---
ELECTRIC TAPE SLITTER INITIAL SHIFT NOTES RECEIVED PATIENT IN BED, ASLEEP, EYES CLOSED. PATIENT WAKES/REACTS TO TACTILE STIMULI, SOMETIMES MUMBLES/RAMBLES NONSENSICAL WORDS/PHRASES, UNABLE TO FOLLOW DIRECTIONS. TOLERATING ROOM AIR WELL, FREE FROM ANY S/S OF RESPIRATORY DISTRESS. BEDSIDE TELEMETRY MONITORING SHOWS SINUS TACHYCARDIA 115BPM WITH BBB AND OCCASIONAL PVCs. OK TO USE GTUBE PER DR CLEMONS, TO START ON TUBE FEEDING @11PM, 2 HOURS AFTER DILANTIN VIA GTUBE. MULTIPLE SKIN DECUBS, WILL MONITOR. LEFT UPPER ARM MIDLINE, FLUSHED WITH NS, PATENT AND INTACT, GOOD VENOUS RETURN, RUNNING NS @ 125ML/HR. ISOLATION PRECAUTIONS OBSERVED. WILL MONITOR CLOSELY
--- NOTE | 2019-12-07 21:20 | NUR ---
rn notes PATIENT TRANSFERRED FROM ICU. PATIENT IS OBTUNDED, ON RA . PATIENT PLACED ON CRAWLER TRACTOR OPERATOR ST WITH HR 108BPM. GT IS IN PLACE WITH RESIDUAL OF 400 ML VAMP CREASER JENAE NOTIFIED AND PER JENAE WILL HOLD THE GTF FOR NOW. RIGHT UPPER ARM MIDLINE AND RIGHT EJ HD PORT ARE IN PLACE, INTACT. PATIENT HAS IVF AT 125ML/HE VAMP CREASER JENAE NOTIFIED AND IVF HAS BEEN DC-ED DUE TO PATIENT BEING NEW HD PATIENT. ALL SAFETY MEASURES ARE IN PLACE, CALL LIOGHT IN REACH . WILL CONTINUE TO MONITOR PATIENT CLOSELY.
--- NOTE | 2019-12-07 21:20 | NUR ---
WELDER PLASMA ARC NOTES PATIENT TRANSFERRED TO TELEMETRY ROOM 118-2 VIA ACLS PROTOCOL. PATIENT TOLERATED TRANSFER WELL. BEDSIDE REPORT GIVEN TO NURSE RAMIREZ FOR CONTINUITY OF CARE
[2019-12-07] MEDS: JEVITY 1.2 CAL 1,000 ML BOTTLE GT SCH (22:44)
[2019-12-08] VITALS (7 sets, daily range): BP systolic 117–142; BP diastolic 9–88
[2019-12-08] MEDS: METOCLOPRAMIDE HCL 10 MG TABLET GT SCH ×4 (01:26→21:56)
[2019-12-08] MEDS: HYDROCODONE/APAP 5/325MG 1 EACH TABLET PO PRN ×2 (04:42→23:43)
[2019-12-08] MEDS: PHENYTOIN SUSP UDC 100 MG/4 ML UDC GT SCH ×3 (06:11→21:56)
[2019-12-08 07:15] LABS: BASOPHILS % (AUTO) 0.2 % (0.0-2.0); EOSINOPHILS % (AUTO) 0.1 % (0.0-6.0); HEMATOCRIT 27 % (39-51); LYMPHOCYTES # (AUTO) 0.5 /CMM (0.8-4.8); MEAN CORPUSCULAR HGB CONC 33 g/dl (31.0-36.0); MEAN CORPUSCULAR VOLUME 87 fL (80-96); MONOCYTES % (AUTO) 9.9 % (2.0-12.0); NEUTROPHILS # (AUTO) 8.5 /CMM (1.8-8.9); NEUTROPHILS % (AUTO) 84.8 % (43.0-81.0); PLATELET COUNT (AUTO) 379 /CMM (150-450); RED BLOOD CELL COUNT(AUTO) 3.15 MIL/uL (4.5-6.0)
--- NOTE | 2019-12-08 07:34 | NUR ---
CREW LEADER OPENING NOTES RECEIVED PATIENT FROM PROTECTIVE OFFICER NURSE. PATIENT IS A/O X1-2. PT IS ON ROOM AIR TOLERATING WELL WITH SATURATION AT 98%. ON TELE MONITOR, ST WITH HR IN LOW 100S. PATIENT HAS A NEW G TUBE IN PLACE, NO FEEDING IS RUNNING AT THE TIME DUE TO A HIGH RESIDUAL. UPPER ARM MIDLINE IS INTACT, PATENT AND FLUSHED WELL. NO SIGNS OF INFECTION NOTED AT THE MOMENT. SAFETY MAINTAINED, CALL LIGHT WITHIN REACH, WILL MONITOR CLOSELY.
[2019-12-08 07:39] LABS: ALANINE AMINOTRANSFERASE 53 U/L (12-78); ALKALINE PHOSPHATASE 116 U/L (46-116); ASPARTATE AMINOTRANSFERASE 54 U/L (15-37); BILIRUBIN,TOTAL 0.6 mg/dL (0.2-1.0); CALCIUM, SERUM 7.9 mg/dL (8.5-10.1); CARBON DIOXIDE 20 mmol/L (21-32); CHLORIDE 107 mmol/L (98-107); CREATININE 3.3 mg/dL (0.6-1.3); GLUCOSE 114 mg/dL (74-106); MAGNESIUM 2.4 mg/dL (1.8-2.4); PHOSPHORUS 4.6 mg/dL (2.5-4.9); POTASSIUM 3.5 mmol/L (3.5-5.1); SODIUM SERUM 142 mmol/L (136-145); TOTAL PROTEIN, SERUM 5.6 g/dL (6.4-8.2); UREA NITROGEN, BLOOD 70 mg/dL (7-18)
[2019-12-08 07:44] LABS: ALBUMIN 1.4 g/dL (3.4-5.0)
[2019-12-08] MEDS: HYDROCORTISONE SOD SUCCINATE 100 MG/2 ML VIAL IV SCH ×3 (08:44→16:32)
[2019-12-08] MEDS: MEROPENEM 500 MG in IV NS 0.9% 50 ML IV SCH (08:44)
[2019-12-08] MEDS: LEVETIRACETAM SOL (5 ML) 100 MG/ML UDC GT SCH ×2 (08:44→21:56)
[2019-12-08] MEDS: MEMANTINE HCL 5 MG TABLET GT SCH ×2 (08:44→16:33)
[2019-12-08] MEDS: AMIODARONE HCL 200 MG TABLET GT SCH ×3 (08:45→16:33)
[2019-12-08] MEDS: FAMOTIDINE (20 MG) 20 MG TABLET GT SCH ×2 (08:45→21:56)
[2019-12-08] MEDS: ZINC SULFATE 220 MG CAPSULE GT SCH (08:45)
[2019-12-08] MEDS: ASCORBIC ACID 500 MG TABLET GT SCH (08:45)
[2019-12-08] MEDS: MULTIVIT W/MINERALS 1 TAB TABLET GT SCH (08:46)
[2019-12-08] MEDS: risperiDONE LIQUID 1 MG/ML ML GT SCH ×2 (08:46→21:57)
[2019-12-08] MEDS: PROSOURCE / PROSTAT (PYXIS) 30 ML UDC GT SCH (08:54)
[2019-12-08] MEDS: THERAHONEY GEL 1.5 OZ TUBE TP SCH (08:56)
[2019-12-08] MEDS: DAKINS QUARTER STRENGTH (0.125%) 480 ML BOTTLE TOP SCH (08:57)
[2019-12-08] MEDS: HYDROGEL DRESSING 90 GM TUBE TP SCH (08:57)
[2019-12-08] MEDS ORDERED: phenytoin SODIUM IV 500 MG in IV NS 0.9% 50 ML IV STA (09:59)
--- NOTE | 2019-12-08 10:43 | NUR ---
LATE ON DILANTIN BEACUSE WAITING FOR LAB TO SEND THE MEDICATION
[2019-12-08] MEDS: JEVITY 1.2 CAL 1,000 ML BOTTLE GT SCH (13:00)
--- NOTE | 2019-12-08 15:45 | NUR ---
RN NOTES WAITING ON PHARMACY TO SEND VANCO POST HD. NOTIFIED THEM THAT THE DIALYSIS IS DONE AND VANCO THROUGH LEVEL IS 18. WAITING ON THEM TO SEND IT SO I CAN START THE VANCO
[2019-12-08 16:21] LABS: OCCULT BLOOD STOOL POSITIVE (NEGATIVE)
[2019-12-08] MEDS: CEFEPIME 1 GM in IV D5W 50 ML IV SCH (16:30)
[2019-12-08] MEDS: VANCOMYCIN 500 MG in IV D5W 100 ML IV PRN (17:17)
--- NOTE | 2019-12-08 19:21 | NUR ---
RNCLOSING NOTES NO ACUTE CHANGES TO PATIENT CONDITION DURING MY SHIFT. PATIENT IN STABLE CONDITION. VITAL SIGNS WNL. NO FEVER AT THIS TIME. PATIENT ON TUBE FEEDING AT 30ML/HR, TOLERATING WELL, ENDORSED TO SR COMMUNITY MANAGER NURSE TO MONITOR FOR RESIDUAL AND INCREASE TOLERATED. GOAL RATE 65MLS/HR. SAFTEY MAINTAINED, CALL LIGHT WITHIN REACH, PT KEPT CLEAN AND DRY, ENDORSED TO SR COMMUNITY MANAGER NURSE TO CONTINUE CARE.
[2019-12-09] VITALS (7 sets, daily range): BP systolic 92–134; BP diastolic 51–89
[2019-12-09] MEDS: METOCLOPRAMIDE HCL 10 MG TABLET GT SCH ×3 (05:00→21:00)
[2019-12-09] MEDS: PHENYTOIN SUSP UDC 100 MG/4 ML UDC GT SCH ×3 (05:27→21:00)
--- NOTE | 2019-12-09 07:00 | NUR ---
[facility] CALLED .CODY LEFT TO CALL BACK.
[2019-12-09 07:19] LABS: EOSINOPHILS % (AUTO) 0.1 % (0.0-6.0); HEMATOCRIT 35 % (39-51); HEMOGLOBIN 11.3 g/dL (13.5-17.5); LYMPHOCYTES # (AUTO) 0.5 /CMM (0.8-4.8); LYMPHOCYTES % (AUTO) 3.5 % (20.0-44.0); MEAN CORPUSCULAR HGB CONC 32 g/dl (31.0-36.0); MEAN CORPUSCULAR VOLUME 88 fL (80-96); MONOCYTES # (AUTO) 0.4 /CMM (0.1-1.30); MONOCYTES % (AUTO) 3.1 % (2.0-12.0); NEUTROPHILS # (AUTO) 12.7 /CMM (1.8-8.9); NEUTROPHILS % (AUTO) 93.3 % (43.0-81.0); PLATELET COUNT (AUTO) 429 /CMM (150-450); RED BLOOD CELL COUNT(AUTO) 3.97 MIL/uL (4.5-6.0); WHITE BLOOD COUNT (AUTO) 13.6 K/uL (4.3-11.0)
[2019-12-09 07:41] LABS: ALANINE AMINOTRANSFERASE 42 U/L (12-78); ALBUMIN 1.5 g/dL (3.4-5.0); ALKALINE PHOSPHATASE 140 U/L (46-116); ASPARTATE AMINOTRANSFERASE 35 U/L (15-37); BILIRUBIN,TOTAL 0.7 mg/dL (0.2-1.0); CARBON DIOXIDE 25 mmol/L (21-32); CHLORIDE 105 mmol/L (98-107); CREATININE 2.8 mg/dL (0.6-1.3); GLUCOSE 136 mg/dL (74-106); MAGNESIUM 2.8 mg/dL (1.8-2.4); PHOSPHORUS 3.8 mg/dL (2.5-4.9); POTASSIUM 3.4 mmol/L (3.5-5.1); SODIUM SERUM 144 mmol/L (136-145); TOTAL PROTEIN, SERUM 6.2 g/dL (6.4-8.2); UREA NITROGEN, BLOOD 54 mg/dL (7-18)
--- NOTE | 2019-12-09 07:47 | NUR ---
INFORMED AND OF FDG FROM SURGICAL SITE, ORDERS OBTAINED
[2019-12-09 07:48] LABS: IRON, SERUM 30 ug/dl (50-175); TOTAL IRON BINDING CAPACITY 90 ug/dl (250-450)
[2019-12-09] MEDS ORDERED: DIATR MEGLU/DIATRIZOATE SODIUM 30 ML BOTTLE (GASTROGRAPHIN) ONE (07:49)
[2019-12-09 07:59] LABS: CREATINE KINASE, TOTAL 190 U/L (39-308); FERRITIN 1522 ng/mL (8-388)
[2019-12-09] MEDS: HYDROGEL DRESSING 90 GM TUBE TP SCH (09:00)
[2019-12-09] MEDS: THERAHONEY GEL 1.5 OZ TUBE TP SCH (09:00)
[2019-12-09] MEDS: MEMANTINE HCL 5 MG TABLET GT SCH ×2 (09:00→16:34)
[2019-12-09] MEDS: ASCORBIC ACID 500 MG TABLET GT SCH (09:00)
[2019-12-09] MEDS: LEVETIRACETAM SOL (5 ML) 100 MG/ML UDC GT SCH ×2 (09:00→21:00)
[2019-12-09] MEDS: FAMOTIDINE (20 MG) 20 MG TABLET GT SCH ×2 (09:00→21:00)
[2019-12-09] MEDS: DAKINS QUARTER STRENGTH (0.125%) 480 ML BOTTLE TOP SCH (09:00)
[2019-12-09] MEDS: AMIODARONE HCL 200 MG TABLET GT SCH ×3 (09:00→16:33)
[2019-12-09] MEDS: ZINC SULFATE 220 MG CAPSULE GT SCH (09:00)
[2019-12-09] MEDS: MULTIVIT W/MINERALS 1 TAB TABLET GT SCH (09:00)
[2019-12-09] MEDS: PROSOURCE / PROSTAT (PYXIS) 30 ML UDC GT SCH (09:00)
[2019-12-09] MEDS: risperiDONE LIQUID 1 MG/ML ML GT SCH ×2 (09:00→21:00)
[2019-12-09 09:23] LABS: BAND % (MANUAL) 16 % (0.0-5.0); EOSINOPHILS % (MANUAL) 1 % (0-4); LYMPHOCYTES % (MANUAL) 3 % (16-48); MONOCYTES % (MANUAL) 2 % (0-11.0)
[2019-12-09 09:24] LABS: NEUTROPHILS % (MANUAL) 78 (42-76)
--- NOTE | 2019-12-09 11:54 | NUR ---
alert, facial grimaces noted when turned and repositioned him, unable to scale , nor tell where it hursts him multiple wounds, please referred to pics on chart. gt held and to gravity, abundant amount of feeding, or pus,came out. Unable to tell what it is.
[2019-12-09] MEDS: HYDROCORTISONE SOD SUCCINATE 100 MG/2 ML VIAL IV SCH ×3 (13:00→17:00)
[2019-12-09] MEDS: CEFEPIME 1 GM in IV D5W 50 ML IV SCH (15:02)
--- NOTE | 2019-12-09 16:53 | NUR ---
looked at GT to gravity drainage again, looked like old feeding came out, about 200cc. hr up, 142. and bp 92/60, earlier notes by hospital admissions officer, aware. Still texted him again this evening. Not able to give anything via GT, today ID not in today, we continue with MAXIPIME ivpb.
[2019-12-09] MEDS ORDERED: DIGOXIN INJ 0.5 MG/2 ML AMPUL IV ONE (18:00)
--- NOTE | 2019-12-09 18:16 | NUR ---
181 monitor on, tachy, 136, digoxin 0.25 ivp given
--- NOTE | 2019-12-09 19:05 | NUR ---
TELE/RN OPENING NOTES: RECEIVED PATIENT ASLEEP IN BED. A/O X1-2. BILATERAL MITTENS ON DURING SHIFT CHANGE; ON ROOM AIR TOLERATING WELL WITH SATURATION AT 100%. ON TELE MONITOR, ST WITH HR IN LOW 130S. PATIENT G TUBE IN PLACE, NO FEEDING IS RUNNING AT THE TIME DUE TO A HIGH RESIDUAL AND LEAKAGE. UPPER ARM MIDLINE IS INTACT, PATENT AND FLUSHED WELL. NO SIGNS OF INFECTION NOTED AT THE MOMENT. SAFETY MEASURES IN PLACE, BED IN LOW, LOCKED POSITION WITH SR UP X2. CALL LIGHT WITHIN REACH, WILL MONITOR CPT. ACCORDINGLY.
[2019-12-09] MEDS: SULFAMETHOXAZOLE/TRIMETHOPRIM 10 ML in IV D5W 250 ML IV SCH (20:13)
--- NOTE | 2019-12-09 21:11 | NUR ---
TELE/RN NOTES: G-TUBE SITE IS LEAKING. MD AWARE. FEEDING IS ON HOLD FOR NOW WELL GTUBE MEDS. PATIENT IS STABLE. WILL CONTINUE TO MONITOR ACCORDINGLY.
[2019-12-09] MEDS: IV NS 0.9% 1,000 ML IV PRN (23:02)
[2019-12-10] VITALS (29 sets, daily range): BP systolic 44–130; BP diastolic 17–76
[2019-12-10] MEDS: DIGOXIN INJ 0.5 MG/2 ML AMPUL IV SCH ×2 (00:07→05:23)
--- NOTE | 2019-12-10 00:20 | NUR ---
TELE/ RN NOTES: TEXTED DR. HERNANDEZ IF OKAY TO GIVE DIGOXIN 0.25MG 1ML IVP. PATIENT'S POTASSIUM LEVEL IS 3.4. PER MD "OKAY TO GIVE. JUST MONITOR VS. CLOSELY." PATIENT IS STABLE AND VS WNL. HR OF 124. ADMINISTERED. WILL CONTINUE MONITORING PT CLOSELY.
[2019-12-10] MEDS: PHENYTOIN SUSP UDC 100 MG/4 ML UDC GT SCH ×3 (04:34→21:00)
[2019-12-10] MEDS: METOCLOPRAMIDE HCL 10 MG TABLET GT SCH ×3 (04:34→21:00)
--- NOTE | 2019-12-10 04:36 | NUR ---
TELE/RN NOTES: G-TUBE SITE IS LEAKING. MD AWARE. FEEDING IS ON HOLD FOR NOW WELL GTUBE MEDS. PATIENT IS STABLE. WILL CONTINUE TO MONITOR ACCORDINGLY.
--- NOTE | 2019-12-10 05:31 | NUR ---
TELE/ RN NOTES: LAST DOSE OF DIGOXIN 0.25MG 1ML IVP ADMINISTERED. MONITORING PATIENT CLOSELY. VS WNL. HR OF 129. WILL CONTINUE MONITORING PT CLOSELY.
--- NOTE | 2019-12-10 06:31 | NUR ---
TELE/RN CLOSING NOTES: PATIENT RESTING IN BED. A/O X1. BILATERAL MITTENS ON TO PREVENT PATIENT FROM PULLING OUT HIS LE, GT, AND IV LINE; ON ROOM AIR TOLERATING WELL WITH SATURATION AT 100%. ON TELE MONITOR WITH READING OF SINUS TACHY HR ON THE 120S. PATIENT G TUBE IN PLACE, NO FEEDING IS RUNNING AT THE TIME DUE TO A HIGH RESIDUAL AND LEAKAGE OF 300ML. UPPER ARM MIDLINE IS INTACT, PATENT AND FLUSHED WELL. SAFETY MEASURES KEPT IN PLACE, BED IN LOW, LOCKED POSITION WITH SR UP X2. CALL LIGHT WITHIN REACH, WILL ENDORSE TO DAY SHIFT NURSE FOR LUISA.
[2019-12-10 06:55] LABS: BASOPHILS % (AUTO) 0.1 % (0.0-2.0); HEMATOCRIT 37 % (39-51); HEMOGLOBIN 11.4 g/dL (13.5-17.5); LYMPHOCYTES # (AUTO) 0.6 /CMM (0.8-4.8); LYMPHOCYTES % (AUTO) 2.3 % (20.0-44.0); MEAN CORPUSCULAR HGB CONC 31 g/dl (31.0-36.0); MEAN CORPUSCULAR VOLUME 91 fL (80-96); MONOCYTES # (AUTO) 1.6 /CMM (0.1-1.30); MONOCYTES % (AUTO) 5.6 % (2.0-12.0); NEUTROPHILS # (AUTO) 25.6 /CMM (1.8-8.9); PLATELET COUNT (AUTO) 299 /CMM (150-450); RED BLOOD CELL COUNT(AUTO) 4.05 MIL/uL (4.5-6.0); WHITE BLOOD COUNT (AUTO) 27.8 K/uL (4.3-11.0)
[2019-12-10 07:09] LABS: PTH, INTACT 25 pg/mL (15-65)
--- NOTE | 2019-12-10 07:20 | NUR ---
RN OPENING NOTE: RECEIVED PATIENT IN BED. AWAKE AND OBTUNDED. BREATHING EVEN AND UNLABORED ON ROOM AIR. SHOWS NO SIGNS OF ACUTE RESPIRATORY DISTRESS. NO SOB, NOT IN RESPIRATORY DISTRESS. IV SITES CLEAN, DRY, INTACT AND PATENT. WITH LE CATHETER WITH TEA COLORED URINE NOTED. GT CONNECTED TO DRAINAGE BAG DUE TO LEAKING. TELE MONITORING SHOWING SINUS TACHYCARDIA IN THE 130S-140S. MD IS AWARE OF IT. SAFETY PRECAUTIONS IN PLACE. CALL LIGHT IN REACH. BED IN LOWEST POSITION, LOCKED AND AT [place]I HILL'S POSITION. SIDE RAILS UP X3. WILL CONTINUE TO MONITOR.
[2019-12-10 07:28] LABS: CALCIUM, SERUM 7.8 mg/dL (8.5-10.1); CARBON DIOXIDE 19 mmol/L (21-32); CHLORIDE 107 mmol/L (98-107); CREATININE 3.4 mg/dL (0.6-1.3); GLUCOSE 172 mg/dL (74-106); POTASSIUM 4.9 mmol/L (3.5-5.1); SODIUM SERUM 143 mmol/L (136-145); UREA NITROGEN, BLOOD 67 mg/dL (7-18)
--- NOTE | 2019-12-10 08:30 | NUR ---
RN NOTE: RAPID RESPONSE WAS CALLED DUE TO PATIENT SHOWING VENTRICULAR TACHYCARDIA ON TELE MONITOR. HR IN 150S.
--- NOTE | 2019-12-10 08:45 | NUR ---
RT NOTE, RESPONDED TO PER DIEM FOR POSSIBLE VTACH, WHEN ASSESING PT NOTICED SPO2 OF 80% PLACED ON NASAL CANNULA @4LPM, STAT EKG DONE, WAS MADE AWARE
--- NOTE | 2019-12-10 08:55 | NUR ---
CHARGE NURSE NOTES 0830 - PATIENT SHOWED V TACH IRREGULAR. ON MONITOR. HR 120s - 156s. DR. GALVAN NOTIFIED. DR. FELIZ. RAPID RESPONSE CALLED. 0840 - RAPID RESPONSE TEAM AT BEDSIDE - ICU CHARGE NURSE JAZZY REID CHARGE NURSE CHARLA WAYNE RN SIGNAL SUPERVISOR, BRONSON PRIMARY NURSE, [place] RESP THERAPIST. 0845 - EKG DONE. BP 114/52 HEART RATE 150's ACCUCHECK 141 O2 SAT AT 90% 0853 - EKG SHOWED AFIB WITH RVR HEART RATE 153. DR. GALVAN NOTIFIED. NO NEW ORDERS WILL SEE PATIENT WILL START AMIO DRIP. 0855 - RAPID RESPONSE ENDED.
[2019-12-10] MEDS: risperiDONE LIQUID 1 MG/ML ML GT SCH ×2 (09:00→21:00)
[2019-12-10] MEDS: ASCORBIC ACID 500 MG TABLET GT SCH (09:00)
[2019-12-10] MEDS: PROSOURCE / PROSTAT (PYXIS) 30 ML UDC GT SCH (09:00)
[2019-12-10] MEDS: FAMOTIDINE (20 MG) 20 MG TABLET GT SCH ×2 (09:00→21:00)
[2019-12-10] MEDS: ZINC SULFATE 220 MG CAPSULE GT SCH (09:00)
[2019-12-10] MEDS: LEVETIRACETAM SOL (5 ML) 100 MG/ML UDC GT SCH ×2 (09:00→21:00)
[2019-12-10] MEDS: AMIODARONE HCL 200 MG TABLET GT SCH (09:00)
[2019-12-10] MEDS: MEMANTINE HCL 5 MG TABLET GT SCH ×2 (09:00→17:00)
[2019-12-10] MEDS: MULTIVIT W/MINERALS 1 TAB TABLET GT SCH (09:00)
--- NOTE | 2019-12-10 09:00 | NUR ---
RN NOTE: RAPID RESPONSE WAS CALLED FOR PATIENT'S TELE MONITORING BEING SHOWED V. TACH IN THE 140-150S. VITAL SIGNS FOLLOWS: BS: 141, BP: 114/52, O2 SAT: 90%, HR: 146BPM. TEMP: 98. PATIENT IS AT REST AND NO S/SX OF RESPIRATORY DISTRESS OR DISCOMFORT NOTED. DR. GALVAN AND DR. FELIZ WERE MADE AWARE AND STAT EKG WAS ORDERED. EKG SHOWED A. FIB WITH RVR. DR. GALVAN AWARE AND AWAITING FOR F/U ORDERS.
--- NOTE | 2019-12-10 10:30 | NUR ---
RN NOTE: DR. CLEMONS MADE ROUNDS AND SAW PATIENT, INFORMED RN ABOUT PLANNED EXPLORATORY LAPAROTOMY AND GT PLACEMENT AT 1700. CONSENT FORMS PREPARED TO BE SIGNED BY [facility] AND PRE-OP CHECKLIST TO BE DONE.
[2019-12-10] MEDS ORDERED: AMIODARONE 150 MG in IV D5W 100 ML IV ONE (11:00)
[2019-12-10] MEDS ORDERED: AMIODARONE 900 MG in IV D5W 500 ML IV PRN (11:00)
[2019-12-10] MEDS ORDERED: DIATR MEGLU/DIATRIZOATE SODIUM 120 ML BOTTLE (GASTROGRAPHIN) ONE (11:13)
[2019-12-10] MEDS: HYDROCORTISONE SOD SUCCINATE 100 MG/2 ML VIAL IV SCH ×2 (12:06→17:03)
--- NOTE | 2019-12-10 12:10 | NUR ---
RN NOTE: DR. GALVAN ORDERED AMIODARONE DRIP FOR PATIENT. NOTED AND CARRIED OUT. INFUSION STARTED.
[2019-12-10] MEDS: DAKINS QUARTER STRENGTH (0.125%) 480 ML BOTTLE TOP SCH (12:16)
[2019-12-10] MEDS: THERAHONEY GEL 1.5 OZ TUBE TP SCH (12:17)
[2019-12-10] MEDS: HYDROGEL DRESSING 90 GM TUBE TP SCH (12:17)
[2019-12-10] MEDS: CEFEPIME 1 GM in IV D5W 50 ML IV SCH (16:24)
[2019-12-10] MEDS ORDERED: MIDAZOLAM HCL 2 MG/2ML VIAL ONE (16:51)
[2019-12-10] MEDS ORDERED: ROCURONIUM BROMIDE 50 MG/5 ML ONE ×2 (16:51)
[2019-12-10] MEDS ORDERED: ANESTHESIA TRAY IN PYXIS 1 EA TRAY MC ONE (16:55)
--- NOTE | 2019-12-10 16:58 | NUR ---
RN NOTE: PATIENT TAKEN TO SURGERY BY OR STAFF. AMIODARONE DRIP CONTINUED AND INFORMED RNS THAT IT IS DUE TO BE TITERED AT 1830. INFORMATION WAS ACKNOWLEDGED. PRE OP CHECKLIST COMPLETED. CONSENT FORM TO BE SIGNED BY DR. KATE CLEMONS PATIENT DOES NOT HAVE ANY FAMILY MEMBER.
--- NOTE | 2019-12-10 17:00 | NUR ---
RN NOTE: INFORMED OR STAFF THAT BLOOD DRAW FOR COAGULATION HAS NOT BEEN DONE YET DUE TO MANAGER SPA BEING UNABLE TO DRAW SAMPLE AND WILL COME BACK TO DRAW. THEY INFORMED SURGEON AND ANESTHESIOLOGIST AND SHE ACCEPTED TO PROCEED WITH SURGERY WITHOUT CURRENT BLOOD DRAW
--- NOTE | 2019-12-10 18:00 | NUR ---
RN NOTE: RN WAS MADE AWARE THAT PATIENT WOULD BE ADMITTED TO ICU AFTER PROCEDURE. ANGELICA HUERTA FROM ICU WAS GIVEN REPORT FOR LUISA.
--- NOTE | 2019-12-10 18:48 | NUR ---
RT NOTE RECEIVED PT INTUBATED FROM OR WITH 7.5 ETT 24 @THE LIP, PLACED PT ON NOTED VENT SETTINGS PER MD ORDERS.
--- NOTE | 2019-12-10 19:00 | NUR ---
RECEIVED PATIENT ORALLY INTUBATED TO THE VENTILATOR ON AC MODE, LETHARGIC, SLIGHTLY OPENS EYES, DOES NOT FOLLOW COMMANDS, SLIGHTLY WITHDRAWS TO PAIN,MAINTAINED ON BILATERAL SOFT WRIST RESTRAINTS TO PREVENT SELF EXTUBATION. HYPOTENSIVE (BPS 70'S),AWAITING NEOSYNEPHRINE DRIP FROM PHARMACY, WILL START ONCE AVAILABLE. ON AMIODARONE DRIP (STARTED IN STEPDOWN UNIT @ 1230 2 1 MG/MIN),NOW AT 0.5 MG/MIN. INFUSING VIA GRETTA MIDLINE. PATIENT S/P EXPLOR LAP/ PARTIAL GASTRECTOMY/G TUBE PLACEMENT TODAY. NOTED RIGHT LATERAL/ABDOMEN SURGICAL INCISSION WITH DRESSING DRY AND INTACT(-) S/S OF ANY BLEEDING OR DRAINAGE, g TUBE 2 MID LOWER ABDOMEN,INTACT WITH INSERTION SITE CLEAN AND DRY (-) OF ANY BLEEDING. BILLY DRAIN @RIGHT LATERAL ABDOMEN TO BULB SUCTION WITH SEROSANGUINEOUS DRAINAGE. OGT ( 53 CM @ LIP) CLAMPED WITH DARK GREENISH DRAINAGE .
--- NOTE | 2019-12-10 19:12 | NUR ---
RN NOTE 1845: Received patient via bed from OR. With ETT to vent, no resp distress at this time. With RIJ HD cath, GRETTA midline, on Amio drip for episodes of Vtach, ST 113 at this time. Obtained order for CXR, KUB from Dr. Fine. Obtained order for Jimmy for ST/Afib, Diprivan and acute restraints. Informed nurse sup for PICC emergency, no family. 190: Endorsed care to Rosa DOMINGUEZ for LUISA, followed up for Jimmy and Diprivan. CXR and KUB done, awaiting result.
--- NOTE | 2019-12-10 19:30 | NUR ---
RN NOTE: SPOKE WITH MARS FROM PHARMACY DUE TO AMIODARONE DRIP NOT BEING SUCCESSFULLY SCANNED EARLIER WHEN BEING HUNG AT 1230 FOR THE 1MG/MIN AND TO BE TITRATED AT 1830 TO 0.5MG/MIN X18HRS. INFORMATION WAS ACKNOWLEDGED BY HER AND RN WAS INFORMED TO PUT IT IN THE NOTES REGARDING THE OCCURRENCE AND THAT IT PROBABLY DID NOT SCAN CORRECTLY DUE TO LABEL ISSUES. INFORMED ANGELICA KUO FROM ICU OF THE SITUATION AND SHE ACKNOWLEDGED IT.
[2019-12-10] MEDS: PHENYLEPHRINE 80 MG in IV D5W 250 ML IV PRN (19:39)
--- NOTE | 2019-12-10 19:45 | NUR ---
RADIOLOGIST DR. GAYLA CASTILLO CALLED FOR X RAY RESULT. OET IN GOOD POSITION BUT PER HIM NGT IS ABOVE THE EG JUNCTION AND NEEDS TO BE ADVANCED AT LEAST 6 CM. G TUBE IS IN GOOD POSITION WELL AR PER HIM.
[2019-12-10] MEDS ORDERED: AMIODARONE 900 MG in IV D5W 482 ML IV PRN (20:00)
[2019-12-10] MEDS: METRONIDAZOLE 500MG/ NS 100ML 500 MG in PREMIX 1 EA IV SCH (21:14)
--- NOTE | 2019-12-10 22:30 | NUR ---
PATIENT NOTED TO MORE ALERT,TACHYPNEIC RR=20-30, SEEMS TO BE IN PAIN, ABDOMEN TENDER,GRIMACES WHEN ABDOMEN IS PALPATED. MD PRESS WORKER HELPER WAS CALLED,SPOKE TO IAN AMATO, ORDERED MORPHINE 2 MG Q 4 HRS FOR PAIN. PROPOFOL DRIP NOT STARTED YET DUE TO HYPOTENSION AND NO IV ACCES(PENDING PICC LINE INSERTION).
[2019-12-10] MEDS: SULFAMETHOXAZOLE/TRIMETHOPRIM 10 ML in IV D5W 250 ML IV SCH (22:44)
[2019-12-10] MEDS ORDERED: MORPHINE SULFATE INJ 2 MG/ML DISP.SYRIN IV PRN (23:00)
--- NOTE | 2019-12-10 23:15 | NUR ---
SPOKE TO IAN AMATO ABOUT THE X RAY RESULT REGARDING THE OGT THAT NEEDS TO BE ADVANCE FURTHER DOWN PER RADIOLOGIST DR. CASTILLO.MADE HIM AWARE THAT DUE TO PATIENT HAD PARTIAL GASTRECTOMY I'M NOT COMFORTABLE ADVANCING THE OGT FURTHER DOWN DUE TO THE KIND OF SURGERY THE PATIENT HAD. IAN AGREED AND INSTRUCTED NOT TO TOUCH THE OGT FOR NOW.
[2019-12-11] VITALS (91 sets, daily range): BP systolic 81–120; BP diastolic 45–80
--- NOTE | 2019-12-11 | NUR ---
BP STILL DROPS IN THE 80'S SYSTOLIC, nEOSYNEPHRINE NOW 250 MCG/MIN.
--- NOTE | 2019-12-11 02:00 | NUR ---
BILLY DRAIN NOTED TO BE LIGHT PINKISH BUT LOOKS LIKE PUSSY/ABSCESS LOOKING CREAM Y DRAINAGE.NGT STILL WITH DARK GREENISH DRAINAGE. G TUBE TO GRAVITY DRAINAGE WITH DARK GREENISH DRAINAGE
[2019-12-11] MEDS: PHENYLEPHRINE 80 MG in IV D5W 250 ML IV PRN ×4 (03:42→23:21)
--- NOTE | 2019-12-11 04:00 | NUR ---
AM BATH DONE, PRESSURE ULCER/INJURIES CARE DONE,DRESSINGS CHANGED.
[2019-12-11 04:40] LABS: BASOPHILS # (AUTO) 0.1 /CMM (0.0-0.2); BASOPHILS % (AUTO) 0.3 % (0.0-2.0); EOSINOPHILS % (AUTO) 0.1 % (0.0-6.0); HEMATOCRIT 32 % (39-51); HEMOGLOBIN 10.2 g/dL (13.5-17.5); LYMPHOCYTES # (AUTO) 0.6 /CMM (0.8-4.8); LYMPHOCYTES % (AUTO) 2.2 % (20.0-44.0); MEAN CORPUSCULAR HGB CONC 32 g/dl (31.0-36.0); MEAN CORPUSCULAR VOLUME 89 fL (80-96); MONOCYTES # (AUTO) 1.5 /CMM (0.1-1.30); MONOCYTES % (AUTO) 5.3 % (2.0-12.0); NEUTROPHILS # (AUTO) 25.9 /CMM (1.8-8.9); NEUTROPHILS % (AUTO) 92.1 % (43.0-81.0); PLATELET COUNT (AUTO) 273 /CMM (150-450); RED BLOOD CELL COUNT(AUTO) 3.61 MIL/uL (4.5-6.0); WHITE BLOOD COUNT (AUTO) 28.1 K/uL (4.3-11.0)
[2019-12-11 04:58] LABS: CALCIUM, SERUM 7.5 mg/dL (8.5-10.1); CARBON DIOXIDE 20 mmol/L (21-32); CHLORIDE 108 mmol/L (98-107); CREATININE 3.7 mg/dL (0.6-1.3); GLUCOSE 242 mg/dL (74-106); MAGNESIUM 2.6 mg/dL (1.8-2.4); PHOSPHORUS 4.6 mg/dL (2.5-4.9); POTASSIUM 4.1 mmol/L (3.5-5.1); SODIUM SERUM 142 mmol/L (136-145); UREA NITROGEN, BLOOD 64 mg/dL (7-18)
[2019-12-11] MEDS: METOCLOPRAMIDE HCL 10 MG TABLET GT SCH (05:00)
[2019-12-11] MEDS: PHENYTOIN SUSP UDC 100 MG/4 ML UDC GT SCH (05:00)
--- NOTE | 2019-12-11 05:00 | NUR ---
BP SYSTOLIC DROPPING CONSISTENTLY AGAIN IN THE 80'S SYSTOLIC, NEOSYNEPHRINE DRIP NOW UP TO MAX DOSE 300 MCG/MIN. STILL ON AMIODARONE DRIP @ 0.5 MG/MIN.
[2019-12-11] MEDS: METRONIDAZOLE 500MG/ NS 100ML 500 MG in PREMIX 1 EA IV SCH ×3 (05:08→21:24)
--- NOTE | 2019-12-11 06:00 | NUR ---
OGT DRAIN= 500, GREENISH AT FIRST NOW CLEARING TO LIGHT GREEN, BILLY DRAIN VUJDE=165 ML. FROM SEROSANGUINOUS NOW CREAMY/PURULENT , G TUBE TO GRAVITY = 5 ML DARK GREENISH.
--- NOTE | 2019-12-11 07:00 | NUR ---
REPORT GIVEN TO DEANNA DOMINGUEZ
--- NOTE | 2019-12-11 07:00 | NUR ---
STILL INTUBATED ON TNE VENTILATOR, NOT ON ANY SEDATION, PROPOFOL NOT STARTED DUE TO HYPOTENSION.NEOSYNEPHRINE STILL # MAX 300 MCG/MIN. NOT IN ANY DISTRESS,STILL ON AMIODARONE DRIP.
[2019-12-11] MEDS: IV NS 0.9% 1,000 ML IV PRN ×3 (07:56→23:22)
[2019-12-11 08:06] LABS: *SPE A/G RATIO 0.5 (0.7-1.7); *SPE ALBUMIN 1.8 g/dL (2.9-4.4); *SPE ALPHA-1-GLOBULIN 0.5 g/dL (0.0-0.4); *SPE BETA GLOBULIN 0.8 g/dL (0.7-1.3); *SPE GLOBULIN, TOTAL 3.6 g/dL (2.2-3.9); *SPE M-SPIKE Not Observed g/dL (Not Observed); *SPEGAMMA GLOBULIN 1.3 g/dL (0.4-1.8)
[2019-12-11] MEDS: HYDROCORTISONE SOD SUCCINATE 100 MG/2 ML VIAL IV SCH ×3 (08:09→16:45)
[2019-12-11] MEDS: ZINC SULFATE 220 MG CAPSULE GT SCH (08:10)
[2019-12-11] MEDS: MULTIVIT W/MINERALS 1 TAB TABLET GT SCH (08:10)
[2019-12-11] MEDS: MEMANTINE HCL 5 MG TABLET GT SCH ×2 (08:10→16:29)
[2019-12-11] MEDS: PROSOURCE / PROSTAT (PYXIS) 30 ML UDC GT SCH (08:10)
[2019-12-11] MEDS: ASCORBIC ACID 500 MG TABLET GT SCH (08:10)
[2019-12-11 08:28] LABS: ABG BASE EXCESS -3.4 mmol/L; ABG OXYGEN SATURATION 93.3 % (92.0-98.5); ABG PCO2 26.8 mmHg (35.0-45.0); ABG PH 7.472 (7.350-7.450); AaDO2 183.4 mmHg; COHb 0.3 % (0.5-1.5); MetHb 0.6 % (0.0-1.5); O2Hb 92.5 % (94.0-97.0); PEEP,BG 5 cm H2O; SITE, ABG Right Brachial; VT, ABG 500 mL
[2019-12-11] MEDS: PROPOFOL 100 ML IV PRN ×2 (08:42→19:37)
[2019-12-11] MEDS: risperiDONE LIQUID 1 MG/ML ML GT SCH ×2 (08:42→20:49)
[2019-12-11] MEDS: THERAHONEY GEL 1.5 OZ TUBE TP SCH (09:34)
[2019-12-11] MEDS: HYDROGEL DRESSING 90 GM TUBE TP SCH (09:35)
[2019-12-11] MEDS: DAKINS QUARTER STRENGTH (0.125%) 480 ML BOTTLE TOP SCH (09:35)
[2019-12-11] MEDS: FAMOTIDINE/PF INJ 20 MG/2 ML VIAL IV SCH ×2 (10:14→21:24)
[2019-12-11] MEDS: LEVETIRACETAM (500MG) 500 MG in IV NS 0.9% 100 ML IV SCH ×2 (10:14→21:24)
--- NOTE | 2019-12-11 10:40 | NUR ---
RN NOTE 0715: Received patient awake. Opens eyes but does not follow commands. With ETT to vent. OGT intact, to LIS, noted with greenish gastric residuals to canister. With RIJ HD cath. GRETTA midline intact, on Jimmy @ 300, will titrate as ordered. On Amio drip 0.5, ST 110's on the monitor. RLQ BILLY drain draining serous drainage. GT to gravity, noted with greenish gastric residuals, minimal. On contact isolation prec for CRE wound, maintained and observed. 0830: S/E by Dr. Bravo, with orders to may change seizure meds and PPIs to IV, awaiting GI kathryn: the OGT advancement. 0845: S/E by Dr. Hope, noted with increase WOB, will place on Diprivan, will titrate until calm or sedated. 1040: No any significant changes noted at this time. On Jimmy @ 250, Diprivan @ 20.
[2019-12-11] MEDS: PHENYTOIN SODIUM IV 50 MG/ML VIAL IV SCH ×2 (12:06→21:23)
[2019-12-11] MEDS: METOCLOPRAMIDE HCL 10 MG/2 ML VIAL IV SCH ×2 (12:06→21:23)
--- NOTE | 2019-12-11 13:00 | NUR ---
RN NOTE SR with frequent PACs, made Dr. Chan aware, Done with 24 hrs Amio therapy, with order to DC Amio drip.
--- NOTE | 2019-12-11 13:44 | NUR ---
RN NOTE PICC nurse tried to place PICC line but unsuccessful. Kept GRETTA midline, Made Dr. Bravo aware that we only have midline for pressors.
--- NOTE | 2019-12-11 16:27 | NUR ---
RN NOTE S/E by Dr. Babin, made aware re: the XR, with good gastric output. Will follow up XR in am. With BILLY drain draining, serous/purulent drainage.
[2019-12-11] MEDS: CEFEPIME 1 GM in IV D5W 50 ML IV SCH (16:45)
--- NOTE | 2019-12-11 18:03 | NUR ---
RN NOTE ETT intact, vent settings tolerated well. On sedation of Diprivan @ 20mcg. On Jimmy @ 100mcg. OGT intact, to LIS, with 350 greenish drainage. With GT to gravity, noted with minimal amount of greenish residuals. With Mcknight cath, noted with very minimal UOP. With RLQ BILLY drain draining, purulent discharge. Skin treatments rendered, sent to lab specimens for right knee and left knee wounds. Iso prec for CRE wound, maintained and observed. Kept clean,w arm and dry.
[2019-12-11] MEDS: SULFAMETHOXAZOLE/TRIMETHOPRIM 10 ML in IV D5W 250 ML IV SCH (19:36)
--- NOTE | 2019-12-11 19:46 | NUR ---
RECEIVED PT ORALLY INTUBATED WITH 7.5 ETT SECURED @ 24 CM LIP LINE ON [facility] VENT WITH NOTED SETTINGS PER MD ORDER. TEACHING MANAGER DONE. AMBU BAG AT BEDSIDE. VENT ALARMS ON AND AUDIBLE. SUCTIONED DONE PRN. NO RESPIRATORY DISTRESS NOTED AT THIS TIME. WILL CONTINUE TO MONITOR THE PT T/O SHIFT
--- NOTE | 2019-12-11 21:30 | NUR ---
ICU/DEVELOPMENT CONSULTANT PT CURRENTLY HAS O/G TUBE TO LOW SUCTION, AND G/TUBE IS DRAINING TO GRAVITY, 2100 DOSE MEDICATION RISPERDAL WAS HELD. PT IS CURRENTLY ON SEDATION FOR INTUBATION WELL.
--- NOTE | 2019-12-11 22:50 | NUR ---
ICU/BILLING AND ACCOUNTING STAFF ASSISTANT PT WAS GIVEN PM CARE, ALONG WITH ORAL CARE. PT TOLERATED THIS WELL, REMAINS ON CURRENT VENT SETTINGS WITH SATURATION AT 96%. THEN PT WAS TUNED AND REPOSITIONED FOR COMFORT AND CARE. NO ACUTE DISTRESS SEEN AT THIS TIME, WILL CONTINUE TO MONITOR THIS PT.
--- NOTE | 2019-12-11 23:31 | NUR ---
ICU/BUTADIENE CONVERTOR OPERATOR NOTICED THAT PERHAPS PT MIGHT BE OVERLY SEDATED, NOTIFIED CHARGE NURSE WHO THEN DECREASED SEDATION TO 10MCG FROM 15. WILL CONTINUE TO MONITOR THIS PT.
[2019-12-12] VITALS (75 sets, daily range): BP systolic 101–142; BP diastolic 49–77
--- NOTE | 2019-12-12 01:10 | NUR ---
ICU/PIERCER OPERATOR PT APPEARS TO BE VERY AWAKE GOING FOR HIS ETT TUBE, NOTIFIED CHARGE NURSE WHO THEN INCREASED SEDATION TO 15MCG OF DIPRIVAN. WILL CONTINUE TO MONITOR THIS PT.
--- NOTE | 2019-12-12 02:35 | NUR ---
ICU/QUILL WINDER PT WAS GIVEN AM CARE, ALONG WITH ORAL CARE. PT TOLERATED THIS WELL, REMAINS ON CURRENT VENT SETTINGS WITH SATURATION AT 96%. THEN PT WAS TUNED AND REPOSITIONED FOR COMFORT AND CARE. NO ACUTE DISTRESS SEEN AT THIS TIME, WILL CONTINUE TO MONITOR THIS PT. ALSO AT THIS TIME ALL WOUND CARE DONE AND DRESSINGS WERE CHANGED.
--- NOTE | 2019-12-12 04:10 | NUR ---
ICU/ORACLE ETL DEVELOPER AM LABS WERE DRAWN, AWAIT FOR ANY CRITICAL LABS.
[2019-12-12] MEDS: METRONIDAZOLE 500MG/ NS 100ML 500 MG in PREMIX 1 EA IV SCH ×3 (05:03→21:30)
[2019-12-12] MEDS: PHENYTOIN SODIUM IV 50 MG/ML VIAL IV SCH ×3 (05:03→21:24)
[2019-12-12] MEDS: METOCLOPRAMIDE HCL 10 MG/2 ML VIAL IV SCH ×3 (05:03→21:28)
[2019-12-12 05:27] LABS: ALANINE AMINOTRANSFERASE 77 U/L (12-78); ALKALINE PHOSPHATASE 132 U/L (46-116); ASPARTATE AMINOTRANSFERASE 140 U/L (15-37); BILIRUBIN,TOTAL 0.5 mg/dL (0.2-1.0); CALCIUM, SERUM 7.4 mg/dL (8.5-10.1); CARBON DIOXIDE 20 mmol/L (21-32); CHLORIDE 110 mmol/L (98-107); CREATININE 4.1 mg/dL (0.6-1.3); GLUCOSE 200 mg/dL (74-106); MAGNESIUM 2.7 mg/dL (1.8-2.4); PHOSPHORUS 4.4 mg/dL (2.5-4.9); POTASSIUM 3.9 mmol/L (3.5-5.1); SODIUM SERUM 143 mmol/L (136-145); TOTAL PROTEIN, SERUM 4.8 g/dL (6.4-8.2); UREA NITROGEN, BLOOD 70 mg/dL (7-18)
--- NOTE | 2019-12-12 05:39 | NUR ---
ICU/WELDER TOOL AND DIE CRITICAL LAB VALUE OF ALB-1.0, MIDDLEWARE ARCHITECT DMITY-SOLE STAINER CALLED ABOUT THIS. ORDERS WERE RECEIVED WITH CHARGE NURSE MADE AWARE OF NEW ORDERS 25% ALB X FOR 4 DOSES.
[2019-12-12] MEDS ORDERED: ALBUMIN 25% 100 ML IV ONE (05:44)
[2019-12-12] MEDS: ALBUMIN 25% 25 GM in PREMIX 1 EA IV SCH ×4 (05:46→23:15)
--- NOTE | 2019-12-12 06:14 | NUR ---
ICU/VIDEO GAME MAKER ELIZABETH DOWN BY CHARGE NURSE WHO WAS NOTIFIED THAT THE BP IS STABLE AT 120/60. WILL CONTINUE TO MONITOR HIS PT'S BP.
--- NOTE | 2019-12-12 07:15 | NUR ---
METAL WEIGHER OPENING NOTE RECEIVED REPORT FROM PM NURSE. PATIENT IN BED. ORALLY INTUBATED 7.5@LIP LEVEL,WITH SATURATION AT 96-98%. NO ACUTE DISTRESS NOTED AT THIS TIME.S/P EXPLORATORY LAPAROTOMY.SURGICAL SITE IS CLEAN AND DRY.BILLY DRAIN DRAINING PURULENT DISCHARGE.OG TUBE WITH INTERMITTENT SUCTION WITH GREENISH SECRETIONS.GT DRAINING VIA GRAVITY GREENISH SECRETIONS.LE CATH WITH DARK URINE MINIMAL AMOUNT.HD PATIENT.IV LINE IN GRETTA MIDLINE.OK TO GIVE ELIZABETH IN MIDLINE.UNSUCCESSFUL INSERTION OF PICCLINE. TOLERATING VENT SETTINGS ORDERED.SEDATED WITH PROPOFOL.BED IS LOW AND IN LOCKED POSITION.CALL LIGHT IN REACH.BED LARAM ON .SRX3.WILL CONTINUE TO MONITOR.
[2019-12-12 07:47] LABS: BASOPHILS % (AUTO) 0.1 % (0.0-2.0); EOSINOPHILS % (AUTO) 0.1 % (0.0-6.0); HEMATOCRIT 32 % (39-51); HEMOGLOBIN 10.2 g/dL (13.5-17.5); LYMPHOCYTES # (AUTO) 0.7 /CMM (0.8-4.8); MEAN CORPUSCULAR HGB CONC 32 g/dl (31.0-36.0); MEAN CORPUSCULAR VOLUME 89 fL (80-96); MONOCYTES # (AUTO) 1.2 /CMM (0.1-1.30); MONOCYTES % (AUTO) 6.7 % (2.0-12.0); NEUTROPHILS # (AUTO) 15.4 /CMM (1.8-8.9); NEUTROPHILS % (AUTO) 89.1 % (43.0-81.0); PLATELET COUNT (AUTO) 171 /CMM (150-450); RED BLOOD CELL COUNT(AUTO) 3.58 MIL/uL (4.5-6.0); WHITE BLOOD COUNT (AUTO) 17.3 K/uL (4.3-11.0)
[2019-12-12] MEDS: DAKINS QUARTER STRENGTH (0.125%) 480 ML BOTTLE TOP SCH (08:08)
[2019-12-12] MEDS: HYDROGEL DRESSING 90 GM TUBE TP SCH (08:09)
[2019-12-12] MEDS: MULTIVIT W/MINERALS 1 TAB TABLET GT SCH (08:09)
[2019-12-12] MEDS: PROSOURCE / PROSTAT (PYXIS) 30 ML UDC GT SCH (08:09)
[2019-12-12] MEDS: risperiDONE LIQUID 1 MG/ML ML GT SCH ×2 (08:09→21:00)
[2019-12-12] MEDS: ASCORBIC ACID 500 MG TABLET GT SCH (08:09)
[2019-12-12] MEDS: ZINC SULFATE 220 MG CAPSULE GT SCH (08:09)
[2019-12-12] MEDS: MEMANTINE HCL 5 MG TABLET GT SCH ×2 (08:09→16:28)
[2019-12-12] MEDS: HYDROCORTISONE SOD SUCCINATE 100 MG/2 ML VIAL IV SCH ×3 (08:14→17:39)
[2019-12-12] MEDS: FAMOTIDINE/PF INJ 20 MG/2 ML VIAL IV SCH ×2 (08:14→21:26)
[2019-12-12] MEDS: PROPOFOL 100 ML IV PRN ×2 (08:43→19:26)
[2019-12-12 09:09] LABS: ABG BASE EXCESS -4.4 mmol/L; ABG OXYGEN SATURATION 96.9 % (92.0-98.5); ABG PH 7.407 (7.350-7.450); ABG PO2 104.7 mmHg (75.0-100.0); AaDO2 143.7 mmHg; COHb 0.1 % (0.5-1.5); MetHb 0.8 % (0.0-1.5); PEEP,BG 0 cm H2O; SITE, ABG Left Radial; VT, ABG 500 mL
--- NOTE | 2019-12-12 09:13 | NUR ---
NOTE SPECIALIST NOTE SEEN BY .UPDATED ABOUT PATIENT CONDITION WITH LABS AND C XRAY RESULT.MADE AWARE ABOUT ET TUBE POSITION 8.6 CM ABOVE LUCY.AWAITING REPEAT C XRAY RESULT FOR CONFORMATION OF THE POSITION.ABG RESULT RELAYED TO .NNO.OK TO ADVANCE ET TUBE 3 CM IF STILL HIGH IN CHEST X RAY.PATIENT GETTING ADEQUATE VOLUME.BILATERAL CHEST RISING NOTICED.WILL CONTINUE TO MONITOR.
[2019-12-12] MEDS: LEVETIRACETAM (500MG) 500 MG in IV NS 0.9% 100 ML IV SCH ×2 (09:26→22:22)
[2019-12-12] MEDS: THERAHONEY GEL 1.5 OZ TUBE TP SCH (09:27)
[2019-12-12] MEDS: IV NS 0.9% 1,000 ML IV PRN ×2 (09:34→20:13)
--- NOTE | 2019-12-12 09:45 | NUR ---
DRAPERY HANGER NOTE RELAYED REPEAT CXRAY IMAGE RESULT TO .NNO.KEEP ETT IN SAME POSITION.WILL CONTINUE TO MONITOR.
[2019-12-12] MEDS: CEFEPIME 1 GM in IV D5W 50 ML IV SCH (16:43)
--- NOTE | 2019-12-12 19:25 | NUR ---
INSPECTOR SCREEN PRINTING OPENING NOTE RECEIVED IN BED WITH HOB ELEVATED. ORALLY INTUBATED 7.524 @ LIP LEVEL. SATURATION AT 100%. NO APPARENT DISTRESS NOTED AT THIS TIME. SURGICAL SITE IS CLEAN AND DRY. BILLY DRAIN DRAINING PURULENT DISCHARGE. OG TUBE WITH INTERMITTENT SUCTION WITH GREENISH SECRETIONS. GT DRAINING VIA GRAVITY GREENISH SECRETIONS. ON LE CATH. URINE IS YELLOW IN COLOR. IV LINE IN GRETTA MIDLINE. SEDATED WITH PROPOFOL. BILATERAL SOFT WRIST RESTRAINTS ON. BED IS LOW AND IN LOCKED POSITION FOR SAFETY. CALL LIGHT IN REACH. BED ALARM ON. WILL CONTINUE TO MONITOR.
--- NOTE | 2019-12-12 19:36 | NUR ---
BRAKE REPAIR SUPERVISOR NOTE ENDORSE TO PM NURSE FOR LUISA.PATIENT IN STABLE CONDITION.
[2019-12-12] MEDS: SULFAMETHOXAZOLE/TRIMETHOPRIM 10 ML in IV D5W 250 ML IV SCH (20:13)
[2019-12-13] VITALS (24 sets, daily range): BP systolic 99–136; BP diastolic 49–76
[2019-12-13] MEDS: PHENYTOIN SODIUM IV 50 MG/ML VIAL IV SCH ×3 (04:41→20:09)
[2019-12-13] MEDS: METRONIDAZOLE 500MG/ NS 100ML 500 MG in PREMIX 1 EA IV SCH ×3 (04:41→21:23)
[2019-12-13] MEDS: METOCLOPRAMIDE HCL 10 MG/2 ML VIAL IV SCH ×3 (04:41→20:09)
[2019-12-13] MEDS: IV NS 0.9% 1,000 ML IV PRN ×2 (06:23→15:34)
--- NOTE | 2019-12-13 07:00 | NUR ---
DIRECTOR OF HEALTH EDUCATION CLOSING NOTE PATIENT IS IN BED RESTING. PATIENT IS ON PROPOFOL @ 20 MCG/KG/MIN. PATIENT IS SEDATED AT THIS TIME, RESPONSIVE TACTILE STIMULI. VENT DEPENDANT. KEPT NPO. ORAL GT ON LOW CONTINUOUS SUCTION ORDERED AND TOLERATED WELL. GASTRIC DRAINAGE DRAINING WELL. ON BILATERAL SOFT WRIST RESTRAINTS. MULTIPLE WOUND DRESSING CHANGES DONE. ALL DUE MEDS GIVEN AND TOLERATED WELL. IN NO APPARENT DISTRESS NOTED AT THIS TIME. PATIENT IS KEPT CLEAN, DRY, AND COMFORTABLE. ENDORSED TO AM SHIFT RN FOR CONTINUATION OF CARE.
--- NOTE | 2019-12-13 07:30 | NUR ---
RN OPENING NOTES RECEIVED PATIENT IN BED WITH HOB ELEVATED. PATIENT IS BEING SEDATED WITH PROPOFOL @ 20MCG/KG/MIN, PATIENT IS TOLERATING WELL IS EASILY AROUSABLE. PATIENT IS CLEAN AND DRY. VITAL SIGNS STABLE. OGT WITH INTERMITTENT SUCTION ON LOW FLOW, SET ORDERED. GT IS DRAINING VIA GRAVITY, GREEN SECRETIONS NOTED. LE CATHETER IS ALSO IN PLACE, URINE IS DRAINING. GRETTA MID LINE INTACT, PATENT AND FLUSHED WELL. NS @125MLS RUNNING. PROPOFOL IS ALSO RUNNING. PATIENT IS ON SOFT WRIST RESTRAINTS, CHECKED CIRCULATION AND REPOSITIONED THE PATIENT. KEPT CLEAN AND DRY, SAFETY MAINTAINED, CALL LIGHT WITHIN REACH.
[2019-12-13] MEDS: ASCORBIC ACID 500 MG TABLET GT SCH (09:00)
[2019-12-13] MEDS: risperiDONE LIQUID 1 MG/ML ML GT SCH ×2 (09:00→20:08)
[2019-12-13] MEDS: ZINC SULFATE 220 MG CAPSULE GT SCH (09:00)
[2019-12-13] MEDS: MEMANTINE HCL 5 MG TABLET GT SCH ×2 (09:00→16:43)
[2019-12-13] MEDS: MULTIVIT W/MINERALS 1 TAB TABLET GT SCH (09:00)
[2019-12-13] MEDS: PROSOURCE / PROSTAT (PYXIS) 30 ML UDC GT SCH (09:00)
[2019-12-13] MEDS: HYDROCORTISONE SOD SUCCINATE 100 MG/2 ML VIAL IV SCH ×3 (09:13→16:43)
[2019-12-13] MEDS: FAMOTIDINE/PF INJ 20 MG/2 ML VIAL IV SCH ×2 (09:13→20:09)
[2019-12-13] MEDS: DAKINS QUARTER STRENGTH (0.125%) 480 ML BOTTLE TOP SCH (09:15)
[2019-12-13] MEDS: HYDROGEL DRESSING 90 GM TUBE TP SCH (09:16)
[2019-12-13] MEDS: THERAHONEY GEL 1.5 OZ TUBE TP SCH (09:16)
[2019-12-13] MEDS: PROPOFOL 100 ML IV PRN ×2 (09:27→17:02)
[2019-12-13] MEDS: LEVETIRACETAM (500MG) 500 MG in IV NS 0.9% 100 ML IV SCH ×2 (10:06→21:31)
[2019-12-13 12:37] LABS: ALANINE AMINOTRANSFERASE 54 U/L (12-78); ALBUMIN 1.7 g/dL (3.4-5.0); ALKALINE PHOSPHATASE 116 U/L (46-116); ASPARTATE AMINOTRANSFERASE 74 U/L (15-37); BILIRUBIN,TOTAL 0.8 mg/dL (0.2-1.0); CALCIUM, SERUM 7.6 mg/dL (8.5-10.1); CARBON DIOXIDE 20 mmol/L (21-32); CHLORIDE 109 mmol/L (98-107); CREATININE 2.8 mg/dL (0.6-1.3); GLUCOSE 89 mg/dL (74-106); MAGNESIUM 2.3 mg/dL (1.8-2.4); PHOSPHORUS 3.7 mg/dL (2.5-4.9); POTASSIUM 3.3 mmol/L (3.5-5.1); SODIUM SERUM 145 mmol/L (136-145); TOTAL PROTEIN, SERUM 5.2 g/dL (6.4-8.2); UREA NITROGEN, BLOOD 47 mg/dL (7-18)
[2019-12-13] MEDS: JEVITY 1.2 CAL 1,000 ML BOTTLE GT SCH (13:20)
[2019-12-13] MEDS: CEFEPIME 1 GM in IV D5W 50 ML IV SCH (15:34)
[2019-12-13 17:16] LABS: BASOPHILS % (AUTO) 0.1 % (0.0-2.0); HEMATOCRIT 31 % (39-51); HEMOGLOBIN 9.6 g/dL (13.5-17.5); LYMPHOCYTES # (AUTO) 0.5 /CMM (0.8-4.8); LYMPHOCYTES % (AUTO) 2.9 % (20.0-44.0); MEAN CORPUSCULAR HGB CONC 31 g/dl (31.0-36.0); MEAN CORPUSCULAR VOLUME 90 fL (80-96); MONOCYTES # (AUTO) 1.9 /CMM (0.1-1.30); MONOCYTES % (AUTO) 10.2 % (2.0-12.0); NEUTROPHILS # (AUTO) 16.4 /CMM (1.8-8.9); NEUTROPHILS % (AUTO) 86.8 % (43.0-81.0); PLATELET COUNT (AUTO) 111 /CMM (150-450); RED BLOOD CELL COUNT(AUTO) 3.38 MIL/uL (4.5-6.0); WHITE BLOOD COUNT (AUTO) 18.9 K/uL (4.3-11.0)
--- NOTE | 2019-12-13 19:32 | NUR ---
RN NOTES DR CLEMONS SAW THE PATIENT. ORDERED TO CONTINUE TUBE FEEDING, START @ 10CC/HR AND INCREASE TOLERATED UNTIL GOAL OF 65CC/HR IS REACHED. ORDERED TO CONTINUE JEVITY 1.2 BEFORE. OK TO REMOVE NGT PER MD ORDER. SAFETY MAINTAINED, CALL LIGHT WITHIN REACH, WILL CONTINUE TO MONITOR.
[2019-12-13] MEDS: SULFAMETHOXAZOLE/TRIMETHOPRIM 10 ML in IV D5W 250 ML IV SCH (20:08)
[2019-12-14] VITALS (41 sets, daily range): BP systolic 90–120; BP diastolic 42–68
[2019-12-14] MEDS: IV NS 0.9% 1,000 ML IV PRN ×4 (02:21→20:06)
[2019-12-14] MEDS: PROPOFOL 100 ML IV PRN ×2 (03:20→17:48)
[2019-12-14 04:42] LABS: BASOPHILS % (AUTO) 0.1 % (0.0-2.0); HEMATOCRIT 26 % (39-51); HEMOGLOBIN 8.2 g/dL (13.5-17.5); LYMPHOCYTES # (AUTO) 0.5 /CMM (0.8-4.8); LYMPHOCYTES % (AUTO) 3.2 % (20.0-44.0); MEAN CORPUSCULAR HGB CONC 32 g/dl (31.0-36.0); MEAN CORPUSCULAR VOLUME 88 fL (80-96); MONOCYTES # (AUTO) 0.9 /CMM (0.1-1.30); MONOCYTES % (AUTO) 5.4 % (2.0-12.0); NEUTROPHILS # (AUTO) 14.3 /CMM (1.8-8.9); NEUTROPHILS % (AUTO) 91.3 % (43.0-81.0); PLATELET COUNT (AUTO) 137 /CMM (150-450); RED BLOOD CELL COUNT(AUTO) 2.91 MIL/uL (4.5-6.0); WHITE BLOOD COUNT (AUTO) 15.7 K/uL (4.3-11.0)
[2019-12-14] MEDS: METRONIDAZOLE 500MG/ NS 100ML 500 MG in PREMIX 1 EA IV SCH ×3 (04:50→21:06)
[2019-12-14] MEDS: METOCLOPRAMIDE HCL 10 MG/2 ML VIAL IV SCH ×3 (04:51→21:04)
[2019-12-14] MEDS: PHENYTOIN SODIUM IV 50 MG/ML VIAL IV SCH ×3 (04:51→21:03)
[2019-12-14 05:05] LABS: ALANINE AMINOTRANSFERASE 40 U/L (12-78); ALBUMIN 1.6 g/dL (3.4-5.0); ALKALINE PHOSPHATASE 104 U/L (46-116); ASPARTATE AMINOTRANSFERASE 34 U/L (15-37); BILIRUBIN,TOTAL 0.6 mg/dL (0.2-1.0); CALCIUM, SERUM 7.2 mg/dL (8.5-10.1); CARBON DIOXIDE 23 mmol/L (21-32); CHLORIDE 112 mmol/L (98-107); CREATININE 3.1 mg/dL (0.6-1.3); GLUCOSE 130 mg/dL (74-106); MAGNESIUM 2.1 mg/dL (1.8-2.4); PHOSPHORUS 4.4 mg/dL (2.5-4.9); SODIUM SERUM 146 mmol/L (136-145); TOTAL PROTEIN, SERUM 4.7 g/dL (6.4-8.2); UREA NITROGEN, BLOOD 51 mg/dL (7-18)
[2019-12-14 05:23] LABS: POTASSIUM 2.6 mmol/L (3.5-5.1)
[2019-12-14] MEDS: POTASSIUM CL. PREMIX PERIPHER. 50 ML IV SCH ×6 (06:12→12:30)
--- NOTE | 2019-12-14 07:20 | NUR ---
RNCLOSING NOTES NO ACUTE CHANGES TO PATIENT CONDITION DURING MY SHIFT. ALL PATIENT NEEDS MET, PATIENT TOLERATING TUBE FEEDING WELL, RUNNING AT 30MLS/HR AT THE MOMENT, NO RESIDUAL NOTED. ALL SCHEDULED MEDICATIONS GIVEN ORDERED. WOUND CARE RENDERED ORDERED, PICTURES TAKEN AND PLACED IN THE CHART. PATIENT KEPT CLEAN AND DRY. POTASSIUM IS AT 2.7, DR THOMAS HAS BEEN NOTIFIED, ORDERED 60MEQ OF POTASSIUM, HANGED BAG , ENDORSED TO AM NURSE TO HANG THE REST. SAFETY MAINTAINED, CALL LIGHT WITHIN REACH, ENDORSED TO PATIENT SAFETY COORDINATOR NURSE TO CONTINUE CARE.
--- NOTE | 2019-12-14 07:24 | NUR ---
RT Pt received orally intubated on mechanical ventilation with noted settings. Pt responds to stimuli when suctioned. Vent is plugged into red outlet. No SOB or respiratory distress noted. Addendum: 12/15/19 at 0814 by MANDY IBARRA RT Amended: Links added.
--- NOTE | 2019-12-14 07:30 | NUR ---
RN NOTES RECEIVED PATEINT, SEDATED WITH DIPRIVAN AT 25MCG/MIN. ORALLY INTUBATED WITH ETT 7.5 AT 24CM ON THE LIP. BREATHING UNLABORED. TOLERATING CURRENT VENT SETTINGS. SATING AT 97% AT THIS TIME. SINUS RHYTHM ON THE MONITOR WITH HR ON THE 80'S. GT IN PLACE, WITH GTF RUNNING AT 30CC/HR. BILLY DRAIN IN PLACE DRAINING VIA GRAVITY TO SEROSANGUINEOUS WITH EXUDATE. LE CATHETER IN PLACE, MINIMAL OUTPUT AT THIS TIE. BILATERAL SOFT RESTRAINTS ON, REMOVE AND REPLACE, SKIN INTACT ON THE SITE OF PLACEMENT. GENERALIZED EDEMA NOTED. SEDATION VACATION INITIATED AT THIS TIME. HOB KEPT ELEVATED. SAFETY MEASURES OBSERVED AND MAINTAINED IN PLACE. SRX2 RAISED. CALL LIGHT WITHIN REACH. WILL CONTINUE TO MONITOR PATIENT ACCORDINGLY
--- NOTE | 2019-12-14 07:30 | NUR ---
RN NOTES CLARIFIED POTASSIUM ORDER FROM DR. GALVAN. RECEIVED ORDER FOR 3 DOSES OF 20MEQ POTASSIUM CHLORIDE PACKET. PER , A TOTAL OF 100MEQ SHOULD BE ADMINISTERED. ORDER READ BACK AND CARRIED OUT Addendum: 12/14/19 at 1112 by JAZZ LEE RN ALPESH SHOULD HAVE BEEN AT 1110 (PRESENT TIME)
[2019-12-14] MEDS: THERAHONEY GEL 1.5 OZ TUBE TP SCH (08:01)
[2019-12-14] MEDS: HYDROGEL DRESSING 90 GM TUBE TP SCH (08:01)
[2019-12-14] MEDS: DAKINS QUARTER STRENGTH (0.125%) 480 ML BOTTLE TOP SCH (08:02)
[2019-12-14] MEDS: MULTIVIT W/MINERALS 1 TAB TABLET GT SCH (08:07)
[2019-12-14] MEDS: MEMANTINE HCL 5 MG TABLET GT SCH ×2 (08:07→17:55)
[2019-12-14] MEDS: ASCORBIC ACID 500 MG TABLET GT SCH (08:07)
[2019-12-14] MEDS: ZINC SULFATE 220 MG CAPSULE GT SCH (08:07)
[2019-12-14] MEDS: risperiDONE LIQUID 1 MG/ML ML GT SCH ×2 (08:07→21:03)
[2019-12-14] MEDS: PROSOURCE / PROSTAT (PYXIS) 30 ML UDC GT SCH (08:08)
[2019-12-14] MEDS: FAMOTIDINE/PF INJ 20 MG/2 ML VIAL IV SCH ×2 (08:08→21:04)
[2019-12-14] MEDS: HYDROCORTISONE SOD SUCCINATE 100 MG/2 ML VIAL IV SCH ×3 (08:08→17:55)
[2019-12-14 08:51] LABS: ABG BASE EXCESS -4.1 mmol/L; ABG OXYGEN SATURATION 90.4 % (92.0-98.5); ABG PCO2 31.5 mmHg (35.0-45.0); ABG PH 7.416 (7.350-7.450); ABG PO2 63.2 mmHg (75.0-100.0); AaDO2 185.8 mmHg; COHb 0.3 % (0.5-1.5); MetHb 0.7 % (0.0-1.5); O2Hb 89.5 % (94.0-97.0); SITE, ABG Right Radial; VENT MODE, BG ac 14 500 40% +0
[2019-12-14] MEDS: LEVETIRACETAM (500MG) 500 MG in IV NS 0.9% 100 ML IV SCH ×2 (10:03→23:00)
[2019-12-14] MEDS: POTASSIUM CHLORIDE 20 MEQ POWDER PACKET NG SCH ×3 (11:00→13:19)
[2019-12-14] MEDS ORDERED: ALTEPLASE CATHFLO 2 MG/VIAL XX ONE (12:00)
--- NOTE | 2019-12-14 16:00 | NUR ---
RN NOTES SPOKE TO DR. CLEMONS. UPDATES GIVEN ON THE PHONE CALL, SPECIALLY DISCUSSED, DRAINAGE ON THE BILLY DRAIN. PER THE LATTER, HE IS AWARE THAT THE DRAINAGE FROM 2 DAYS AGO WAS PURULENT AND THAT YESTERDAY IT IS SEROSANGUINEOUS. DOCTOR ALSO HAD CLAIMED THATT CAYDEN'LL COME AND SEE THE PATIENT IN AM.
[2019-12-14] MEDS: CEFEPIME 1 GM in IV D5W 50 ML IV SCH (16:25)
[2019-12-14] MEDS: SULFAMETHOXAZOLE/TRIMETHOPRIM 10 ML in IV D5W 250 ML IV SCH (22:17)
[2019-12-15] VITALS (52 sets, daily range): BP systolic 98–130; BP diastolic 47–79
[2019-12-15] MEDS: PROPOFOL 100 ML IV PRN ×2 (02:39→17:48)
[2019-12-15] MEDS: PHENYTOIN SODIUM IV 50 MG/ML VIAL IV SCH ×3 (05:15→21:56)
[2019-12-15] MEDS: METOCLOPRAMIDE HCL 10 MG/2 ML VIAL IV SCH ×3 (05:16→21:59)
[2019-12-15] MEDS: JEVITY 1.2 CAL 1,000 ML BOTTLE GT SCH (05:16)
[2019-12-15] MEDS: METRONIDAZOLE 500MG/ NS 100ML 500 MG in PREMIX 1 EA IV SCH ×3 (05:16→22:52)
[2019-12-15] MEDS: IV NS 0.9% 1,000 ML IV PRN (05:16)
--- NOTE | 2019-12-15 07:28 | NUR ---
RN NOTES ENDOORSED FOR CONTINUITY OF CARE. NOT ON ANY FORM OF DISTRESS. NO INDICATION OF PAIN NOTED.STILL SEDATED WITH DIPRIVAN AT 10MCG. FEEDING INFUSING WELL. ALL NURSING NEEDS ATTENDED AND MET. SAFETY MEASURES IN PLACE. CALL LIGHT WITHIN REACH
--- NOTE | 2019-12-15 07:45 | NUR ---
ICU/RN INITIAL NOTES,AM RECEIVED BEDSIDE REPORT FROM NIGHT NURSE. PT SEDATED AND ORALLY INTUBATED, ON VENT SETTINGS ORDERED BY MD. PT SEDATED, DOES NOT FOLLOW ANY COMMANDS, WILL DO SEDATION VACATION. PT ON TELE, SINUS WITH OCCASIONAL PVC'S. MULTIPLE WOUNDS NOTED, SURGICAL SITE ASSESSED. PURULENT DRAINAGE NOTED. BILLY DRAIN IN PLACE, DRAINING PURULENT DRAINAGE. PT AFEBRILE. TUBE FEEDING INFUSING ORDERED, TOLERATING WELL, NO RESIDUAL NOTED. LEFT UPPER ARM MIDLINE PATENT AND INTACT, NO S/S OF INFECTION OR INFILTRATION NOTED. ALL NEEDS ATTENDED TO, SAFETY MEASURES TAKEN, BED IN LOW POSITION, SIDE RAILS UP, CALL LIGHT WITHIN REACH. WILL CONTINUE CARE.
--- NOTE | 2019-12-15 08:12 | NUR ---
RT Pt received orally intubated on mechanical ventilation with noted settings. Pt responds to stimuli when suctioned. Vent is plugged into red outlet. No SOB or respiratory distress noted. Addendum: 12/15/19 at 0813 by MANDY IBARRA RT Amended: Links added.
[2019-12-15] MEDS: HYDROCORTISONE SOD SUCCINATE 100 MG/2 ML VIAL IV SCH ×2 (08:51→17:42)
[2019-12-15] MEDS: FAMOTIDINE/PF INJ 20 MG/2 ML VIAL IV SCH ×2 (08:51→21:59)
[2019-12-15] MEDS: MEMANTINE HCL 5 MG TABLET GT SCH ×2 (08:52→17:42)
[2019-12-15] MEDS: ZINC SULFATE 220 MG CAPSULE GT SCH (08:52)
[2019-12-15] MEDS: ASCORBIC ACID 500 MG TABLET GT SCH (08:52)
[2019-12-15] MEDS: risperiDONE LIQUID 1 MG/ML ML GT SCH ×2 (08:52→21:56)
[2019-12-15] MEDS: PROSOURCE / PROSTAT (PYXIS) 30 ML UDC GT SCH (08:52)
[2019-12-15] MEDS: MULTIVIT W/MINERALS 1 TAB TABLET GT SCH (08:52)
[2019-12-15] MEDS: DAKINS QUARTER STRENGTH (0.125%) 480 ML BOTTLE TOP SCH (08:53)
[2019-12-15] MEDS: HYDROGEL DRESSING 90 GM TUBE TP SCH (08:54)
[2019-12-15] MEDS: THERAHONEY GEL 1.5 OZ TUBE TP SCH (08:54)
--- NOTE | 2019-12-15 09:30 | NUR ---
ICU/RN: SEDATION VACATION DONE. PT OPENS EYES, DOES NOT FOLLOW COMMANDS. WILL RESUME PER PROTOCOL.
[2019-12-15] MEDS: LEVETIRACETAM (500MG) 500 MG in IV NS 0.9% 100 ML IV SCH ×2 (09:59→21:59)
[2019-12-15 10:02] LABS: ABG BASE EXCESS -7.9 mmol/L; ABG OXYGEN SATURATION 96.5 % (92.0-98.5); ABG PCO2 29.4 mmHg (35.0-45.0); ABG PH 7.368 (7.350-7.450); ABG PO2 99.6 mmHg (75.0-100.0); AaDO2 151.8 mmHg; COHb 0.2 % (0.5-1.5); MetHb 0.9 % (0.0-1.5); O2Hb 95.4 % (94.0-97.0); PEEP,BG 0 cm H2O; SITE, ABG Right Radial; VT, ABG 500 mL
[2019-12-15 13:09] LABS: BASOPHILS % (AUTO) 0.2 % (0.0-2.0); HEMATOCRIT 23 % (39-51); HEMOGLOBIN 7.2 g/dL (13.5-17.5); LYMPHOCYTES # (AUTO) 0.4 /CMM (0.8-4.8); LYMPHOCYTES % (AUTO) 2.4 % (20.0-44.0); MEAN CORPUSCULAR HGB CONC 31 g/dl (31.0-36.0); MEAN CORPUSCULAR VOLUME 89 fL (80-96); MONOCYTES # (AUTO) 1.4 /CMM (0.1-1.30); MONOCYTES % (AUTO) 7.9 % (2.0-12.0); NEUTROPHILS # (AUTO) 15.6 /CMM (1.8-8.9); NEUTROPHILS % (AUTO) 89.5 % (43.0-81.0); PLATELET COUNT (AUTO) 141 /CMM (150-450); RED BLOOD CELL COUNT(AUTO) 2.59 MIL/uL (4.5-6.0); WHITE BLOOD COUNT (AUTO) 17.5 K/uL (4.3-11.0)
[2019-12-15 13:23] LABS: ALANINE AMINOTRANSFERASE 24 U/L (12-78); ALKALINE PHOSPHATASE 115 U/L (46-116); ASPARTATE AMINOTRANSFERASE 17 U/L (15-37); BILIRUBIN,TOTAL 0.5 mg/dL (0.2-1.0); CALCIUM, SERUM 6.9 mg/dL (8.5-10.1); CARBON DIOXIDE 21 mmol/L (21-32); CHLORIDE 113 mmol/L (98-107); CREATININE 3.2 mg/dL (0.6-1.3); GLUCOSE 186 mg/dL (74-106); MAGNESIUM 1.8 mg/dL (1.8-2.4); PHOSPHORUS 3.8 mg/dL (2.5-4.9); POTASSIUM 3.5 mmol/L (3.5-5.1); SODIUM SERUM 145 mmol/L (136-145); TOTAL PROTEIN, SERUM 4.3 g/dL (6.4-8.2); UREA NITROGEN, BLOOD 53 mg/dL (7-18)
[2019-12-15 13:24] LABS: ALBUMIN 1.3 g/dL (3.4-5.0)
[2019-12-15 13:28] LABS: BAND % (MANUAL) 4 % (0.0-5.0); LYMPHOCYTES % (MANUAL) 1 % (16-48); MONOCYTES % (MANUAL) 9 % (0-11.0); MYELOCYTES % 2 % (0-0); NEUTROPHILS % (MANUAL) 84 (42-76)
--- NOTE | 2019-12-15 16:00 | NUR ---
ICU/RN: DR.TIM WALTER AT BEDSIDE. LEFT FEMORAL CARITO CATH INSERTED. RIGHT JUGULAR NON FUNCTIONING, WILL BE REMOVED. HD NURSE WAS UNABLE TO COMPLETE HEMODIALYSIS THIS AM. AND JENAE AWARE
[2019-12-15] MEDS: CEFEPIME 1 GM in IV D5W 50 ML IV SCH (17:42)
--- NOTE | 2019-12-15 19:42 | NUR ---
ICU/RN ENDING NOTES,AM BEDSIDE REPORT ENDORSED TO NIGHT NURSE. PT SEDATED AND INTUBATED, NO DISTRESS NOTED, ON VENT SETTINGS ORDERED BY MD. SINUS ON TELE. DIPRIVAN INFUSING FOR SEDATION. ALL NEEDS ATTENDED TO, SAFETY MEASURES TAKEN, BED IN LOW POSITION, SIDE RAILS UP, CALL LIGHT WITHIN REACH. POSSIBLE WOUND DEBRIDEMENT IN AM. BILATERAL SOFT WRIST RESTRAINTS IN PLACE, ASSESSED PER PROTOCOL.
--- NOTE | 2019-12-15 20:00 | NUR ---
RN NOTES PT SEDATED. ORALLY INTUBATED WITH 7.5 AND 24 CM AT LIP WITH VENT SETTING AC 14 TV 500 FIO2 50% NO PEEP. SEDATED WITH DIPRIVAN BUT AROUSABLE TO TOUCH SR WITH POVC'S SATURATION 98%. AFEBRILE. WITH GTF JEVITY @ 50 ML/HR TOLERATED WELL PATENCY CHECKED. WTIH LEAKING ON SURGICAL WOUND AREA WITH PURULENT OUTPUT FROM THE BILLY DRAIN. IV SITE ON GRETTA ML WITH PROPOFOL . KEPT PT CLEAN AND DRY CLOSELY MONITOR.
[2019-12-15] MEDS: SULFAMETHOXAZOLE/TRIMETHOPRIM 10 ML in IV D5W 250 ML IV SCH (21:56)
[2019-12-16] VITALS (42 sets, daily range): BP systolic 90–128; BP diastolic 55–75
[2019-12-16 05:46] LABS: BASOPHILS % (AUTO) 0.1 % (0.0-2.0); EOSINOPHILS % (AUTO) 0.1 % (0.0-6.0); HEMATOCRIT 23 % (39-51); HEMOGLOBIN 7.3 g/dL (13.5-17.5); LYMPHOCYTES # (AUTO) 0.8 /CMM (0.8-4.8); LYMPHOCYTES % (AUTO) 5.1 % (20.0-44.0); MEAN CORPUSCULAR HGB CONC 32 g/dl (31.0-36.0); MEAN CORPUSCULAR VOLUME 88 fL (80-96); MONOCYTES # (AUTO) 1.6 /CMM (0.1-1.30); MONOCYTES % (AUTO) 9.9 % (2.0-12.0); NEUTROPHILS # (AUTO) 13.6 /CMM (1.8-8.9); NEUTROPHILS % (AUTO) 84.8 % (43.0-81.0); PLATELET COUNT (AUTO) 142 /CMM (150-450); RED BLOOD CELL COUNT(AUTO) 2.63 MIL/uL (4.5-6.0)
[2019-12-16 05:47] LABS: ALANINE AMINOTRANSFERASE 23 U/L (12-78); ALKALINE PHOSPHATASE 120 U/L (46-116); ASPARTATE AMINOTRANSFERASE 19 U/L (15-37); BILIRUBIN,TOTAL 0.4 mg/dL (0.2-1.0); CALCIUM, SERUM 6.9 mg/dL (8.5-10.1); CARBON DIOXIDE 19 mmol/L (21-32); CHLORIDE 113 mmol/L (98-107); CREATININE 3.5 mg/dL (0.6-1.3); GLUCOSE 163 mg/dL (74-106); PHOSPHORUS 4.3 mg/dL (2.5-4.9); POTASSIUM 3.5 mmol/L (3.5-5.1); SODIUM SERUM 145 mmol/L (136-145); TOTAL PROTEIN, SERUM 4.5 g/dL (6.4-8.2); UREA NITROGEN, BLOOD 59 mg/dL (7-18)
[2019-12-16] MEDS: PHENYTOIN SODIUM IV 50 MG/ML VIAL IV SCH ×3 (05:56→21:40)
[2019-12-16] MEDS: METOCLOPRAMIDE HCL 10 MG/2 ML VIAL IV SCH ×3 (05:56→21:40)
[2019-12-16] MEDS: PROPOFOL 100 ML IV PRN ×3 (05:56→22:20)
[2019-12-16] MEDS: METRONIDAZOLE 500MG/ NS 100ML 500 MG in PREMIX 1 EA IV SCH ×3 (05:56→21:43)
[2019-12-16 05:59] LABS: ALBUMIN 1.3 g/dL (3.4-5.0)
--- NOTE | 2019-12-16 06:00 | NUR ---
HEAD OF MERCHANDISE BUYING: PRIMARY NURSE MADE AWARE OF ALBUMIN=1.3.
[2019-12-16] MEDS: JEVITY 1.2 CAL 1,000 ML BOTTLE GT SCH (06:06)
--- NOTE | 2019-12-16 07:02 | NUR ---
RN NOTES PATIENT REMAINED STABLE VSS. CONTINUE WITH PROPOFOL TITRATED PROTOCOL ORDERED. ETT AND VENT SETTING TOLERATED WELL. AFEBRILE. VSS WITH NO PRESSORS. INCONTINENT CARE RENDERED. WOUND DRESSING CHANGES. BILLY DRAINED WITH PURULENT DISCHARGED. IV SITE INTACT AND PATENT. KEPT PT CLEAN AND DRY.
--- NOTE | 2019-12-16 08:00 | NUR ---
ICU/RN INITIAL NOTES,AM RECEIVED BEDSIDE REPORT FROM NIGHT NURSE. PT SEDATED AND ORALLY INTUBATED, ON VENT SETTINGS ORDERED BY MD. WILL DO SEDATION VACATION. PT ON TELE, SINUS WITH OCCASIONAL PVC'S. MULTIPLE WOUNDS NOTED, SURGICAL SITE ASSESSED. PURULENT DRAINAGE NOTED FROM SURGICAL SITE. BILLY DRAIN IN PLACE, DRAINING PURULENT DRAINAGE. PT AFEBRILE. LEFT UPPER ARM MIDLINE PATENT AND INTACT, NO S/S OF INFECTION OR INFILTRATION NOTED. ALL NEEDS ATTENDED TO, SAFETY MEASURES TAKEN, BED IN LOW POSITION, SIDE RAILS UP, CALL LIGHT WITHIN REACH. WILL CONTINUE CARE.
--- NOTE | 2019-12-16 08:30 | NUR ---
ICU/RN: SEDATION VACATION SEDATION OFF, PT OPENS EYES, WITHDRAWS FROM PAIN. DOES NOT FOLLOW SIMPLE COMMANDS. WILL CONTINUE TO MONITOR.
--- NOTE | 2019-12-16 08:30 | NUR ---
ICU/RN: RECEIVED TLO ORDERS FROM TO STOP TUBE FEEDING AND ASSESS THE AMOUNT OF DRAINAGE FROM SURGICAL SITE AND BILLY DRAIN. WILL FOLLOW THROUGH.
--- NOTE | 2019-12-16 09:00 | NUR ---
ICU/RN: RESUMED SEDATION. PT AWAKE AND MILD AGITATION NOTED. WILL TITRATE PER PROTOCOL
[2019-12-16] MEDS: MULTIVIT W/MINERALS 1 TAB TABLET GT SCH (09:25)
[2019-12-16] MEDS: MEMANTINE HCL 5 MG TABLET GT SCH ×2 (09:25→16:03)
[2019-12-16] MEDS: HYDROCORTISONE SOD SUCCINATE 100 MG/2 ML VIAL IV SCH ×2 (09:26→16:03)
[2019-12-16] MEDS: ZINC SULFATE 220 MG CAPSULE GT SCH (09:26)
[2019-12-16] MEDS: PROSOURCE / PROSTAT (PYXIS) 30 ML UDC GT SCH (09:26)
[2019-12-16] MEDS: FAMOTIDINE/PF INJ 20 MG/2 ML VIAL IV SCH ×2 (09:26→21:40)
[2019-12-16] MEDS: ASCORBIC ACID 500 MG TABLET GT SCH (09:31)
[2019-12-16] MEDS: risperiDONE LIQUID 1 MG/ML ML GT SCH ×2 (09:31→21:43)
[2019-12-16] MEDS: LEVETIRACETAM SOL (5 ML) 100 MG/ML UDC GT SCH ×2 (09:33→21:40)
[2019-12-16 09:35] LABS: ABG BASE EXCESS -9.1 mmol/L; ABG OXYGEN SATURATION 96.6 % (92.0-98.5); ABG PCO2 28.1 mmHg (35.0-45.0); ABG PH 7.357 (7.350-7.450); ABG PO2 100.7 mmHg (75.0-100.0); AaDO2 152.2 mmHg; MetHb 0.6 % (0.0-1.5); PEEP,BG 0 cm H2O; SITE, ABG Right Radial
[2019-12-16] MEDS ORDERED: DIATR MEGLU/DIATRIZOATE SODIUM 120 ML BOTTLE (GASTROGRAPHIN) ONE (09:43)
[2019-12-16] MEDS: DAKINS QUARTER STRENGTH (0.125%) 480 ML BOTTLE TOP SCH (09:55)
[2019-12-16] MEDS: HYDROGEL DRESSING 90 GM TUBE TP SCH (09:55)
[2019-12-16] MEDS: THERAHONEY GEL 1.5 OZ TUBE TP SCH (09:56)
[2019-12-16] MEDS: SULFAMETHOXAZOLE/TRIMETHOPRIM 10 ML in IV D5W 250 ML IV SCH (11:16)
[2019-12-16] MEDS ORDERED: IV NS 0.9% 250 ML IV ONE (13:42)
[2019-12-16] MEDS ORDERED: IOHEXOL-350 100 ML VIAL IV ONE (13:42)
[2019-12-16] MEDS ORDERED: IOHEXOL-300 100 ML VIAL IV ONE (13:43)
[2019-12-16] MEDS ORDERED: LIDOCAINE 1%-EPI 1:100,000 20 ML VIAL TP ONE (14:30)
[2019-12-16] MEDS ORDERED: SILVER NITRATE APPLICATOR 1 EA BOX TP ONE (14:30)
[2019-12-16] MEDS: CEFEPIME 1 GM in IV D5W 50 ML IV SCH (16:01)
--- NOTE | 2019-12-16 19:08 | NUR ---
RECEIVED PT ORALLY INTUBATED WITH 7.5 ETT SECURED @ 23 CM LIP LINE ON [facility] VENT WITH NOTED SETTINGS PER MD ORDER. PT IS SEDATED, RESPONDS TO STIMULI WHEN SUCTION. FISH FROG OR OYSTER FARMER DONE. AMBU BAG AT BEDSIDE. VENT ALARMS ON AND AUDIBLE. SUCTIONED DONE PRN. NO RESPIRATORY DISTRESS NOTED AT THIS TIME. WILL CONTINUE TO MONITOR THE PT T/O SHIFT
--- NOTE | 2019-12-16 23:29 | NUR ---
RN NOTES RECEIVED PATIENT SEDATED ON BED . RESPONSIVE TO STIMULI. ORALLY INTUBATED WITH ETT 7.5 AND 24 CM AT LIP LINE. WITH VENT SETTING AC 14 TV 500 FIO2 40% NO PEEP. SR WITH PVC'S WITH GT INTACT ANS PATENT CLAMPE AT THIS TIME. IV SITE ON GRETTA MIDLINE INTACT WITH PROPOFOL @ 20 MCG/KG/MIN ROBERT. WELL. BILATERAL SOFT WRIST RESTRAINT IN PLACE, CIRCULATION CHECKED. TOLERATED HD TODAY PER PREV. NURSE AWAITING FOR FOR SERIAL DEBRIDEMENT OF SACRUM CK KNEES AND CK. ISCHIUM AND LEFT HIP. REAMINED GT CLAMPED TFO. KEPT PT CLEAN AND DRY. TURNED AND REPOSITIONED FOR SKIN MGMT.
[2019-12-17] VITALS (56 sets, daily range): BP systolic 82–148; BP diastolic 35–72
[2019-12-17] MEDS: SULFAMETHOXAZOLE/TRIMETHOPRIM 10 ML in IV D5W 250 ML IV SCH ×3 (00:05→23:00)
[2019-12-17 04:50] LABS: BASOPHILS % (AUTO) 0.2 % (0.0-2.0); EOSINOPHILS % (AUTO) 0.1 % (0.0-6.0); HEMATOCRIT 23 % (39-51); HEMOGLOBIN 7.4 g/dL (13.5-17.5); LYMPHOCYTES # (AUTO) 0.8 /CMM (0.8-4.8); LYMPHOCYTES % (AUTO) 4.8 % (20.0-44.0); MEAN CORPUSCULAR HGB CONC 32 g/dl (31.0-36.0); MEAN CORPUSCULAR VOLUME 88 fL (80-96); MONOCYTES # (AUTO) 1.6 /CMM (0.1-1.30); MONOCYTES % (AUTO) 8.9 % (2.0-12.0); NEUTROPHILS # (AUTO) 15.2 /CMM (1.8-8.9); PLATELET COUNT (AUTO) 78 /CMM (150-450); RED BLOOD CELL COUNT(AUTO) 2.63 MIL/uL (4.5-6.0); WHITE BLOOD COUNT (AUTO) 17.6 K/uL (4.3-11.0)
[2019-12-17] MEDS: METRONIDAZOLE 500MG/ NS 100ML 500 MG in PREMIX 1 EA IV SCH ×3 (05:02→20:37)
[2019-12-17] MEDS: METOCLOPRAMIDE HCL 10 MG/2 ML VIAL IV SCH ×3 (05:03→20:37)
[2019-12-17] MEDS: PHENYTOIN SODIUM IV 50 MG/ML VIAL IV SCH ×3 (05:03→20:37)
[2019-12-17] MEDS: PROPOFOL 100 ML IV PRN ×3 (05:04→23:24)
[2019-12-17 05:11] LABS: TRIGLYCERIDES 197 mg/dL (30-150)
[2019-12-17 05:21] LABS: CARBON DIOXIDE 22 mmol/L (21-32); CHLORIDE 110 mmol/L (98-107); CREATININE 2.9 mg/dL (0.6-1.3); GLUCOSE 89 mg/dL (74-106); POTASSIUM 3.4 mmol/L (3.5-5.1); SODIUM SERUM 144 mmol/L (136-145); UREA NITROGEN, BLOOD 46 mg/dL (7-18)
[2019-12-17 06:32] LABS: LYMPHOCYTES % (MANUAL) 5 % (16-48); MONOCYTES % (MANUAL) 11 % (0-11.0); NEUTROPHILS % (MANUAL) 84 (42-76)
--- NOTE | 2019-12-17 06:48 | NUR ---
RN NOTES PATIENT STABLE NO SIGNIFICANT CHANGES THROUGHOUT THE SHIFT. SURGICAL DRAINAGE IS MUCH LESSER. AFEBRILE. VSS WITH NO PRESSOR PROPOFOL CONTINUE ON 20 MCG/KG/MIN TOLERATED WELL. PATIENT REMAINED CALM AND COOPERATIVE. DRESSING CHANGED TO ALL WOUNDS. F/C DRAINED WITH YELLOW CLEAR COLOR URINE. TURNED AND REPOSITIONED Q2H AND PRN. WILL ENDORSED CONTINUITY OF CARE TO AM NURSE. 0620 AM - S/E BY DR CLEMONS AT BEDSIDE, PER MD PATIENT SURGICAL SITE (ABDOMEN) IS MUCH BETTER. CONTINUE TO HOLD FEEDING TILL TOMORROW.
--- NOTE | 2019-12-17 07:49 | NUR ---
ICU/RN INITIAL NOTES,AM RECEIVED BEDSIDE REPORT FROM NIGHT NURSE. PT SEDATED AND ORALLY INTUBATED, ON VENT SETTINGS ORDERED BY MD. PT ON TELE, SINUS WITH OCCASIONAL PVC'S. MULTIPLE WOUNDS NOTED, SURGICAL SITE ASSESSED. PURULENT DRAINAGE NOTED FROM SURGICAL SITE. BILLY DRAIN IN PLACE, DRAINING PURULENT DRAINAGE. PT AFEBRILE. LEFT UPPER ARM MIDLINE PATENT AND INTACT, NO S/S OF INFECTION OR INFILTRATION NOTED. PT SCHEDULED FOR WOUND DEBRIDEMENT TODAY. ALL NEEDS ATTENDED TO, SAFETY MEASURES TAKEN, BED IN LOW POSITION, SIDE RAILS UP, CALL LIGHT WITHIN REACH. BILATERAL SOFT WRIST RESTRAINTS IN PLACE, ASSESSED PER PROTOCOL. WILL CONTINUE CARE.
[2019-12-17] MEDS: MEMANTINE HCL 5 MG TABLET GT SCH ×2 (08:23→16:34)
[2019-12-17] MEDS: ZINC SULFATE 220 MG CAPSULE GT SCH (08:23)
[2019-12-17] MEDS: MULTIVIT W/MINERALS 1 TAB TABLET GT SCH (08:23)
[2019-12-17] MEDS: ASCORBIC ACID 500 MG TABLET GT SCH (08:23)
[2019-12-17] MEDS: LEVETIRACETAM SOL (5 ML) 100 MG/ML UDC GT SCH ×2 (08:23→20:37)
[2019-12-17] MEDS: risperiDONE LIQUID 1 MG/ML ML GT SCH ×2 (08:23→20:37)
[2019-12-17] MEDS: PROSOURCE / PROSTAT (PYXIS) 30 ML UDC GT SCH (08:24)
[2019-12-17] MEDS: FAMOTIDINE/PF INJ 20 MG/2 ML VIAL IV SCH ×2 (08:24→20:37)
[2019-12-17] MEDS: HYDROCORTISONE SOD SUCCINATE 100 MG/2 ML VIAL IV SCH ×2 (08:24→16:34)
[2019-12-17] MEDS: DAKINS QUARTER STRENGTH (0.125%) 480 ML BOTTLE TOP SCH (08:25)
[2019-12-17] MEDS: HYDROGEL DRESSING 90 GM TUBE TP SCH (08:26)
[2019-12-17] MEDS: THERAHONEY GEL 1.5 OZ TUBE TP SCH (08:26)
--- NOTE | 2019-12-17 09:00 | NUR ---
ICU/RN: SEDATION VACATION STARTED, WILL ASSESS MENTAL STATUS AND RESUME NEEDED
[2019-12-17] MEDS ORDERED: POTASSIUM CHLORIDE 20 MEQ POWDER PACKET NG SCH (10:00)
[2019-12-17] MEDS ORDERED: IV NS 0.9% 250 ML BAG IV ONE (10:00)
[2019-12-17] MEDS: ALBUMIN 25% 25 GM in PREMIX 1 EA IV PRN (11:48)
[2019-12-17] MEDS: CEFEPIME 1 GM in IV D5W 50 ML IV SCH (16:34)
--- NOTE | 2019-12-17 18:00 | NUR ---
ICU/RN: DEVIN AT BEDSIDE, WOUND DEBRIDEMENT DONE. NO S/S OF BLEEDING NOTED. WILL CONTINUE TO MONITOR. NEW DRESSINGS APPLIED.
[2019-12-17 18:41] LABS: BASOPHILS % (AUTO) 0.1 % (0.0-2.0); HEMATOCRIT 21 % (39-51); LYMPHOCYTES # (AUTO) 0.5 /CMM (0.8-4.8); LYMPHOCYTES % (AUTO) 2.9 % (20.0-44.0); MEAN CORPUSCULAR HGB CONC 33 g/dl (31.0-36.0); MEAN CORPUSCULAR VOLUME 86 fL (80-96); MONOCYTES # (AUTO) 1.3 /CMM (0.1-1.30); MONOCYTES % (AUTO) 8.4 % (2.0-12.0); NEUTROPHILS # (AUTO) 14.1 /CMM (1.8-8.9); NEUTROPHILS % (AUTO) 88.6 % (43.0-81.0); PLATELET COUNT (AUTO) 120 /CMM (150-450); RED BLOOD CELL COUNT(AUTO) 2.44 MIL/uL (4.5-6.0)
[2019-12-17 18:45] LABS: HEMOGLOBIN 6.9 g/dL (13.5-17.5)
--- NOTE | 2019-12-17 18:50 | NUR ---
ICU/RN: CRITICAL LAB HEMOGLOBIN 6.9. JENAE BERNAL CALLED TLO ORDERS RECEIVED FOR ONE UNIT PRBC. WILL ENDORSE TO NIGHT NURSE
--- NOTE | 2019-12-17 19:02 | NUR ---
ICU/RN ENDING NOTES,AM BEDSIDE REPORT ENDORSED TO NIGHT NURSE. PT SEDATED AND INTUBATED, NO DISTRESS NOTED, ON VENT SETTINGS ORDERED BY MD. SINUS ON TELE. DIPRIVAN INFUSING FOR SEDATION. ALL NEEDS ATTENDED TO, SAFETY MEASURES TAKEN, BED IN LOW POSITION, SIDE RAILS UP, CALL LIGHT WITHIN REACH. HD DONE TODAY, 800 ML OUT. LOW HEMOGLOBIN, ONE UNIT ORDERED. BILATERAL SOFT WRIST RESTRAINTS IN PLACE, ASSESSED PER PROTOCOL.
--- NOTE | 2019-12-17 19:30 | NUR ---
RN NOTES RECEIVED PATIENT SEDATED ON BED ORALLY INTUBATED WITH ETT 7.5 AND 23 CM AT LIP LINE. WITH VENT SETTING AC 14 TV 500 FIO2 40% NO PEEP. SR WITH PVC'S WITH GT INTACT AND PATENT IV SITE ON GRETTA MIDLINE RUNNING WITH PROPOFOL @ 20 MCG/KG/MIN ROBERT. WELL. S/P WOUND DEBRIDEMENT IN AM NO ACTIVE BLEEDING PRESENT. INCISION SITE W/ SMALL DRAINAGE AND BILLY DRAINED PURULENT DISCHARGE. BILATERAL SOFT WRIST RESTRAINT KEPT IN PLACE, CIRCULATION CHECKED. KEPT PT CLEAN AND DRY. TURNED AND REPOSITIONED FOR SKIN MGMT.
--- NOTE | 2019-12-17 19:53 | NUR ---
RECEIVED PT ORALLY INTUBATED WITH 7.5 ETT SECURED @ 23 CM LIP LINE ON [facility] VENT WITH NOTED SETTINGS PER MD ORDER. PT IS SEDATED, RESPONDS TO STIMULI WHEN SUCTION. [facility] DONE. AMBU BAG AT BEDSIDE. VENT ALARMS ON AND AUDIBLE. SUCTIONED DONE PRN. NO RESPIRATORY DISTRESS NOTED AT THIS TIME. WILL CONTINUE TO MONITOR THE PT T/O SHIFT
--- NOTE | 2019-12-17 21:45 | NUR ---
RN NOTES INFORMED DR. GRESHAM THAT PATIENT NEEDS ANOTHER LINE AND THE PATIENT IS HARD STICK. WITH ORDER TO PLACE ANOTHER MIDLINE.
[2019-12-18] VITALS (59 sets, daily range): BP systolic 87–142; BP diastolic 47–93
--- NOTE | 2019-12-18 00:32 | NUR ---
RN NOTES BLOOD TRANSFUSION STARTED WITH VS TEMP 97.4 RESP 16 HR 74 BP 110/58 SATURATION 98%. WILL CONTINUE TO MONITOR.
[2019-12-18] MEDS ORDERED: SULFAMETHOXAZOLE/TRIMETHOPRIM 10 ML VIAL IV ONE (00:53)
[2019-12-18] MEDS: SULFAMETHOXAZOLE/TRIMETHOPRIM 10 ML in IV D5W 250 ML IV SCH ×2 (00:57→11:22)
--- NOTE | 2019-12-18 02:51 | NUR ---
RN NOTES BLOOD TRANSFUSION FINISHED AT THIS TIME VSS TEMP 97 SATURATION 99% AFEBRILE. HR 85 BP 124/69 TOELRATED WELL WITHOUT SIGNS OF ADVERSE REACTION. WILL CONTINUE TO MONITOR
[2019-12-18 04:30] LABS: BASOPHILS % (AUTO) 0.1 % (0.0-2.0); HEMATOCRIT 24 % (39-51); LYMPHOCYTES # (AUTO) 0.8 /CMM (0.8-4.8); LYMPHOCYTES % (AUTO) 3.8 % (20.0-44.0); MEAN CORPUSCULAR HGB CONC 33 g/dl (31.0-36.0); MEAN CORPUSCULAR VOLUME 85 fL (80-96); MONOCYTES # (AUTO) 2.2 /CMM (0.1-1.30); MONOCYTES % (AUTO) 10.3 % (2.0-12.0); NEUTROPHILS # (AUTO) 18.2 /CMM (1.8-8.9); NEUTROPHILS % (AUTO) 85.8 % (43.0-81.0); PLATELET COUNT (AUTO) 134 /CMM (150-450); RED BLOOD CELL COUNT(AUTO) 2.87 MIL/uL (4.5-6.0); WHITE BLOOD COUNT (AUTO) 21.2 K/uL (4.3-11.0)
[2019-12-18 05:03] LABS: CALCIUM, SERUM 7.5 mg/dL (8.5-10.1); CARBON DIOXIDE 24 mmol/L (21-32); CHLORIDE 110 mmol/L (98-107); CREATININE 2.6 mg/dL (0.6-1.3); GLUCOSE 86 mg/dL (74-106); POTASSIUM 3.8 mmol/L (3.5-5.1); SODIUM SERUM 146 mmol/L (136-145); UREA NITROGEN, BLOOD 37 mg/dL (7-18)
[2019-12-18] MEDS: METOCLOPRAMIDE HCL 10 MG/2 ML VIAL IV SCH ×3 (05:33→22:19)
[2019-12-18] MEDS: PHENYTOIN SODIUM IV 50 MG/ML VIAL IV SCH ×3 (05:33→22:19)
[2019-12-18] MEDS: METRONIDAZOLE 500MG/ NS 100ML 500 MG in PREMIX 1 EA IV SCH ×3 (05:33→22:20)
[2019-12-18] MEDS: PROPOFOL 100 ML IV PRN (06:51)
--- NOTE | 2019-12-18 07:15 | NUR ---
RN NOTES ETT AND VENT SETTING TOLERATED WELL. VSS STABLE. S/ I UNIT PRBC TOLERATED WELL. NO SIGNIFICANT CHANGES THROUGHOUT THE SHIFT. AFEBRILE VSS WITHOUT ANY PRESSORS. PROPOFOL CONTINUE TITRATED PROTOCOL ORDERS. ABDOMINAL INCISION WITH LEAKS OF PURULENT DISCHARGES. WELL BILLY DRAIN AND GT SITE WHEN COUGHING. WOUND DRESSING CHANGED ORDERED. KEPT PT CLEAN AND DRY, T/R Q2H AND PRN. ENDORSED CONTINUITY OF CARE.
--- NOTE | 2019-12-18 07:30 | NUR ---
RN NOTES RECEIVED PATIENT, SEDATED WITH DIPRIVAN AT 15MCG/MIN. ORALLY INTUBATED WITH ETT 7.5 AT 24CM ON THE LIP. BREATHING UNLABORED. TOLERATING CURRENT VENT SETTINGS FOLLOWS AC AT 14, TV 500, FIO2 40% PEEP 0 . SATING AT 97% AT THIS TIME. SINUS RHYTHM ON THE MONITOR WITH HR ON THE 80'S. GT IN PLACE, CLAMPED AT THIS TIME. BILLY DRAIN IN PLACE DRAINING VIA GRAVITY TO SEROUS WITH EXUDATE. LE CATHETER IN PLACE, MINIMAL OUTPUT AT THIS TIE. BILATERAL SOFT RESTRAINTS ON, REMOVE AND REPLACE, SKIN INTACT ON THE SITE OF PLACEMENT. GENERALIZED EDEMA NOTED. SEDATION VACATION INITIATED AT THIS TIME. HOB KEPT ELEVATED. SAFETY MEASURES OBSERVED AND MAINTAINED IN PLACE. SRX2 RAISED. CALL LIGHT WITHIN REACH. WILL CONTINUE TO MONITOR PATIENT ACCORDINGLY
--- NOTE | 2019-12-18 08:02 | NUR ---
RT Pt received orally intubated on mechanical ventilation with noted settings. Vent is plugged into red outlet. Pt has moderate thick secretions. No SOB or respiratory distress noted. Addendum: 12/18/19 at 1727 by MANDY IBARRA RT Amended: Links added.
[2019-12-18] MEDS ORDERED: TPN/PPN PER PHARMACY XX PRN (08:30)
[2019-12-18] MEDS: FAMOTIDINE/PF INJ 20 MG/2 ML VIAL IV SCH ×2 (08:38→22:19)
[2019-12-18] MEDS: HYDROCORTISONE SOD SUCCINATE 100 MG/2 ML VIAL IV SCH ×2 (08:38→17:13)
[2019-12-18] MEDS: DAKINS QUARTER STRENGTH (0.125%) 480 ML BOTTLE TOP SCH (08:39)
[2019-12-18] MEDS: ASCORBIC ACID 500 MG TABLET GT SCH (08:39)
[2019-12-18] MEDS: PROSOURCE / PROSTAT (PYXIS) 30 ML UDC GT SCH (08:39)
[2019-12-18] MEDS: MULTIVIT W/MINERALS 1 TAB TABLET GT SCH (08:39)
[2019-12-18] MEDS: ZINC SULFATE 220 MG CAPSULE GT SCH (08:39)
[2019-12-18] MEDS: LEVETIRACETAM SOL (5 ML) 100 MG/ML UDC GT SCH ×2 (08:39→22:35)
[2019-12-18] MEDS: MEMANTINE HCL 5 MG TABLET GT SCH ×2 (08:39→17:13)
[2019-12-18] MEDS: THERAHONEY GEL 1.5 OZ TUBE TP SCH (08:40)
[2019-12-18] MEDS: HYDROGEL DRESSING 90 GM TUBE TP SCH (08:40)
[2019-12-18] MEDS: risperiDONE LIQUID 1 MG/ML ML GT SCH ×2 (08:54→21:00)
[2019-12-18 10:00] LABS: ABG BASE EXCESS -2.4 mmol/L; ABG PCO2 28.5 mmHg (35.0-45.0); ABG PH 7.476 (7.350-7.450); ABG PO2 88.8 mmHg (75.0-100.0); AaDO2 163.6 mmHg; COHb 0.1 % (0.5-1.5); MetHb 0.6 % (0.0-1.5); O2Hb 95.3 % (94.0-97.0); PEEP,BG 0 cm H2O; SITE, ABG Right Radial; VT, ABG 500 mL
--- NOTE | 2019-12-18 10:00 | NUR ---
RN NOTES PATIENT SEEN AND EXAMINED BY DR. CLEMONS. AWARE OF THE PURULENT DRAINAGE FROM THE BILLY DRAIN AND LEAKING FROM THE SURGICAL SITE. Javon BERNAL DNP ALSO AT THE UNIT WHO ALSO ASSESSED ON THE PATIENT'S WOUND SITE. WITH ORDER MADE. ORDERS NOTED AND CARRIED OUT
[2019-12-18] MEDS ORDERED: FEE TPN 1 MIN EA MC ONE (12:16)
[2019-12-18 12:26] LABS: MAGNESIUM 1.8 mg/dL (1.8-2.4); PHOSPHORUS 3.7 mg/dL (2.5-4.9)
[2019-12-18] MEDS ORDERED: DEXTROSE 50%-WATER 50 ML DISP.SYRIN IV PRN (12:30)
[2019-12-18] MEDS ORDERED: TPN BAG #1 IV PRN ×4 (12:30)
[2019-12-18] MEDS: CEFEPIME 1 GM in IV D5W 50 ML IV SCH (17:13)
[2019-12-18] MEDS: BLOOD SUGAR DIAGNOSTIC 1 EACH STRIP IN SCH (17:35)
--- NOTE | 2019-12-18 19:20 | NUR ---
RN NOTES ENDORSED PATIENT FOR CONTINUITY OF CARE. NOT ON ANY FORM OF DISTRESS.TOLERATING VENT SETTINGS. NO INDICATION OF PAIN NOTED AT THIS TIME. PATIENT WITH ONGOING DIPRIVAN AT 15MCG/MIN. HOB ELEVATED. SAFETY MEASURES IN PLACE. CALL LIGHT WITHIN REACH
--- NOTE | 2019-12-18 21:45 | NUR ---
ICU/INDUSTRIAL RELATIONS ANALYST RISPERDAL WAS HELD DUE TO PT IS CURRENTLY ON SEDATION. WILL RESUME WHEN PT IS OFF SEDATION.
[2019-12-19] VITALS (57 sets, daily range): BP systolic 84–139; BP diastolic 42–83
[2019-12-19] MEDS: SULFAMETHOXAZOLE/TRIMETHOPRIM 10 ML in IV D5W 250 ML IV SCH ×3 (00:15→23:16)
[2019-12-19] MEDS: PROPOFOL 100 ML IV PRN ×2 (00:16→18:41)
--- NOTE | 2019-12-19 00:25 | NUR ---
RT NOTE Pt rec'd orally intubated via ETT sz #7.5 secured at 23CM at the lip line. Pt on [facility] vent on AC mode on noted settings as charted. No resp distress or sob noted. Pt sx'd for thick mod amt of pale yellow secretions. Alarms are set and audible. Vent plugged into red outlet. Ambu bag bedside. Will continue to monitor closely. Addendum: 12/19/19 at 0027 by BERNARD POWERS RT Amended: Links added.
[2019-12-19] MEDS: BLOOD SUGAR DIAGNOSTIC 1 EACH STRIP IN SCH ×4 (00:53→17:30)
--- NOTE | 2019-12-19 01:30 | NUR ---
ICU/CLINICAL TRIALS NURSE PT WAS GIVEN AM CARE, ALONG WITH ORAL CARE. PT TOLERATED THIS WELL, REMAINS ON CURRENT VENT SETTINGS WITH SATURATION AT 96%. THEN PT WAS TUNED AND REPOSITIONED FOR COMFORT AND CARE. NO ACUTE DISTRESS SEEN AT THIS TIME, WILL CONTINUE TO MONITOR THIS PT. ALSO AT THIS TIME ALL WOUND CARE DONE AND DRESSINGS WERE CHANGED. THE ABDOMEN IS DRAINING CORPUS AMOUNT OF GREENISH BROWN PUSS, WHICH REQUIRES FREQUENT DRESSING CHANGES.
--- NOTE | 2019-12-19 04:00 | NUR ---
ICU/MANAGEMENT NURSE RN UNABLE TO DRAW LABS ON LINES, WILL HAVE THEM DRAWN PERIPHERAL.
[2019-12-19] MEDS: PHENYTOIN SODIUM IV 50 MG/ML VIAL IV SCH ×3 (06:06→21:39)
[2019-12-19] MEDS: METRONIDAZOLE 500MG/ NS 100ML 500 MG in PREMIX 1 EA IV SCH ×3 (06:06→21:39)
[2019-12-19] MEDS: METOCLOPRAMIDE HCL 10 MG/2 ML VIAL IV SCH ×3 (06:06→21:39)
--- NOTE | 2019-12-19 08:00 | NUR ---
RN NOTES SEEN AND EXAMINED BY Javon BERNAL DNP. SURGICAL SITE EXAMINED AND DRESSED BY THE LATTER. NNO AT THIS TIME
[2019-12-19] MEDS: MEMANTINE HCL 5 MG TABLET GT SCH ×2 (09:22→17:30)
[2019-12-19] MEDS: ZINC SULFATE 220 MG CAPSULE GT SCH (09:22)
[2019-12-19] MEDS: HYDROCORTISONE SOD SUCCINATE 100 MG/2 ML VIAL IV SCH (09:22)
[2019-12-19] MEDS: LEVETIRACETAM SOL (5 ML) 100 MG/ML UDC GT SCH ×2 (09:22→21:39)
[2019-12-19] MEDS: ASCORBIC ACID 500 MG TABLET GT SCH (09:22)
[2019-12-19] MEDS: FAMOTIDINE/PF INJ 20 MG/2 ML VIAL IV SCH ×2 (09:22→21:39)
[2019-12-19] MEDS: PROSOURCE / PROSTAT (PYXIS) 30 ML UDC GT SCH (09:22)
[2019-12-19] MEDS: HYDROGEL DRESSING 90 GM TUBE TP SCH (09:23)
[2019-12-19 09:25] LABS: ABG BASE EXCESS -6.1 mmol/L; ABG OXYGEN SATURATION 96.3 % (92.0-98.5); ABG PCO2 29.8 mmHg (35.0-45.0); ABG PH 7.397 (7.350-7.450); AaDO2 151.9 mmHg; COHb 0.3 % (0.5-1.5); MetHb 0.8 % (0.0-1.5); O2Hb 95.2 % (94.0-97.0); PEEP,BG 0 cm H2O; VT, ABG 500 mL
[2019-12-19] MEDS: DAKINS QUARTER STRENGTH (0.125%) 480 ML BOTTLE TOP SCH ×2 (09:25→09:33)
[2019-12-19] MEDS: risperiDONE LIQUID 1 MG/ML ML GT SCH ×2 (09:25→21:00)
[2019-12-19] MEDS: THERAHONEY GEL 1.5 OZ TUBE TP SCH (09:25)
[2019-12-19] MEDS: MULTIVIT W/MINERALS 1 TAB TABLET GT SCH (09:35)
[2019-12-19 09:48] LABS: CALCIUM, SERUM 6.9 mg/dL (8.5-10.1); CARBON DIOXIDE 20 mmol/L (21-32); CHLORIDE 106 mmol/L (98-107); CREATININE 3.2 mg/dL (0.6-1.3); GLUCOSE 165 mg/dL (74-106); MAGNESIUM 1.8 mg/dL (1.8-2.4); PHOSPHORUS 4.3 mg/dL (2.5-4.9); POTASSIUM 3.8 mmol/L (3.5-5.1); SODIUM SERUM 138 mmol/L (136-145); UREA NITROGEN, BLOOD 48 mg/dL (7-18)
[2019-12-19] MEDS: ALBUMIN 25% 25 GM in PREMIX 1 EA IV PRN (10:47)
[2019-12-19] MEDS: TPN BAG #2 IV PRN ×4 (14:34)
--- NOTE | 2019-12-19 14:57 | NUR ---
RT NOTE: PATIENT RECEIVED ORALLY INTUBATED WITH 7.5 SECURED AT 23 CM TOP LIP LINE ON MECHANICAL VENT. ALARMS VERIFIED AND AUDIBLE. AMBU BAG AT [facility].
[2019-12-19] MEDS: CEFEPIME 1 GM in IV D5W 50 ML IV SCH (17:30)
[2019-12-19] MEDS: INSULIN REGULAR, HUMAN 100 UNIT/ML 3 ML VIAL SQ PRN (17:33)
--- NOTE | 2019-12-19 19:45 | NUR ---
ICU/CONSTRUCTION IRONWORKER RECEIVED REPORT FROM DAY NURSE. SEE NURSING FLOWSHEET FOR ASSESSMENT. THERE ARE SOME SKIN ISSUES WHICH ARE ADDRESSED ON THE FLOWSHEET ALONG WITH THE INTERVENTIONS. PT ORALLY INTUBATED WITH SATURATION AT 96-98%. NO ACUTE DISTRESS SEEN AT THIS TIME, PT WAS TURNED AND REPOSITIONED FOR COMFORT AND CARE WILL CONTINUE TO MONITOR THIS PT. PT IS CURRENTLY ON ELIZABETH FOR LOW BP, WILL MONITOR THIS BP CLOSELY.
--- NOTE | 2019-12-19 20:45 | NUR ---
ICU/HEAD BANQUET WAITER/WAITRESS DR FLORES CAME TO SEE PT ASKED WHAT THE PLAN OF CARE IS, IT PASSED IN REPORT THAT DR CLEMONS SAID THAT THERE IS NO CHANCE FOR PT TO PULL THROUGH THIS AND SHOULD BE MADE COMFORT CARE. PT CURRENTLY HAS NO FAMILY DID HOWEVER BUT IN A SOCIAL SERVICE CONSULT TO MAKE PT COMFORT CARE.
--- NOTE | 2019-12-19 21:08 | NUR ---
ICU/TRAM OPERATOR ORDER FOR SOCIAL SERVICE TO EVAL. PT FOR COMFORT MEASURES PER MD'S RECOMMENDATIONS.
--- NOTE | 2019-12-19 21:13 | NUR ---
ICU/KISS MACHINE OPERATOR RISPERDAL WAS HELD DUE TO PT IS CURRENTLY ON SEDATION AND PROPERLY BEING SEDATED. WILL RESUME WHEN PT IS OFF SEDATION.
[2019-12-20] VITALS (30 sets, daily range): BP systolic 96–119; BP diastolic 49–89
[2019-12-20] MEDS: BLOOD SUGAR DIAGNOSTIC 1 EACH STRIP IN SCH ×4 (00:39→19:32)
--- NOTE | 2019-12-20 00:40 | NUR ---
ICU/OLAP DEVELOPER BILLY IS DRAINING 450ML, HOWEVER CONTINUE TO DRAIN AROUND THE DRESSING. DESPITE THE LARGE AMOUNT OF VOLUME COMING THROUGH THE BILLY.
--- NOTE | 2019-12-20 02:00 | NUR ---
ICU/GEOPHYSICAL OPERATOR PT WAS GIVEN AM CARE, ALONG WITH WOUND CARE. THE DRESSING WAS SATURATED WITH BLOOD AND PUSS. PT TOLERATED THIS WELL. PT WAS TURNED AND REPOSITIONED FOR COMFORT AND CARE.
[2019-12-20] MEDS: PROPOFOL 100 ML IV PRN ×3 (02:32→19:37)
[2019-12-20] MEDS: METRONIDAZOLE 500MG/ NS 100ML 500 MG in PREMIX 1 EA IV SCH ×2 (04:48→13:00)
[2019-12-20] MEDS: METOCLOPRAMIDE HCL 10 MG/2 ML VIAL IV SCH ×3 (04:48→20:30)
[2019-12-20] MEDS: PHENYTOIN SODIUM IV 50 MG/ML VIAL IV SCH ×3 (04:48→20:30)
[2019-12-20] MEDS ORDERED: TPN BAG #3 IV PRN ×4 (05:00)
[2019-12-20 05:43] LABS: BASOPHILS % (AUTO) 0.1 % (0.0-2.0); EOSINOPHILS % (AUTO) 0.1 % (0.0-6.0); HEMATOCRIT 21 % (39-51); LYMPHOCYTES # (AUTO) 0.6 /CMM (0.8-4.8); LYMPHOCYTES % (AUTO) 2.3 % (20.0-44.0); MEAN CORPUSCULAR HGB CONC 32 g/dl (31.0-36.0); MEAN CORPUSCULAR VOLUME 87 fL (80-96); MONOCYTES % (AUTO) 7.7 % (2.0-12.0); NEUTROPHILS # (AUTO) 23.5 /CMM (1.8-8.9); NEUTROPHILS % (AUTO) 89.8 % (43.0-81.0); PLATELET COUNT (AUTO) 104 /CMM (150-450); RED BLOOD CELL COUNT(AUTO) 2.45 MIL/uL (4.5-6.0); WHITE BLOOD COUNT (AUTO) 26.2 K/uL (4.3-11.0)
[2019-12-20 06:08] LABS: CARBON DIOXIDE 21 mmol/L (21-32); CHLORIDE 103 mmol/L (98-107); GLUCOSE 145 mg/dL (74-106); MAGNESIUM 1.7 mg/dL (1.8-2.4); PHOSPHORUS 3.1 mg/dL (2.5-4.9); POTASSIUM 2.9 mmol/L (3.5-5.1); SODIUM SERUM 139 mmol/L (136-145); UREA NITROGEN, BLOOD 42 mg/dL (7-18)
[2019-12-20 06:19] LABS: HEMOGLOBIN 6.8 g/dL (13.5-17.5)
--- NOTE | 2019-12-20 06:47 | NUR ---
ICU/SECURITY SYSTEM SALES CONSULTANT CRITICAL LAB VALUE OF LOW H&H 6.8, 'S EXCHANGE WAS CALLED TWICE, STILL WAITING FOR MD TO CALL BACK.
[2019-12-20] MEDS: TPN BAG #2 IV PRN ×4 (06:58)
[2019-12-20 07:58] LABS: BAND % (MANUAL) 11 % (0.0-5.0); LYMPHOCYTES % (MANUAL) 4 % (16-48); MONOCYTES % (MANUAL) 2 % (0-11.0); NEUTROPHILS % (MANUAL) 83 (42-76)
[2019-12-20] MEDS ORDERED: TPN BAG#3 IV PRN ×4 (08:00)
[2019-12-20] MEDS: THERAHONEY GEL 1.5 OZ TUBE TP SCH (09:00)
[2019-12-20] MEDS: risperiDONE LIQUID 1 MG/ML ML GT SCH ×2 (09:00→20:30)
[2019-12-20] MEDS: HYDROGEL DRESSING 90 GM TUBE TP SCH (09:00)
[2019-12-20 09:03] LABS: ABG BASE EXCESS -2.8 mmol/L; ABG OXYGEN SATURATION 95.8 % (92.0-98.5); ABG PCO2 33.8 mmHg (35.0-45.0); ABG PH 7.419 (7.350-7.450); ABG PO2 85.7 mmHg (75.0-100.0); AaDO2 160.6 mmHg; COHb 0.5 % (0.5-1.5); MetHb 0.6 % (0.0-1.5); O2Hb 94.7 % (94.0-97.0); PEEP,BG 0 cm H2O; SITE, ABG Right Radial; VT, ABG 500 mL
[2019-12-20] MEDS: LEVETIRACETAM SOL (5 ML) 100 MG/ML UDC GT SCH ×2 (09:35→20:30)
[2019-12-20] MEDS: HYDROCORTISONE SOD SUCCINATE 100 MG/2 ML VIAL IV SCH (09:35)
[2019-12-20] MEDS: ZINC SULFATE 220 MG CAPSULE GT SCH (09:36)
[2019-12-20] MEDS: ASCORBIC ACID 500 MG TABLET GT SCH (09:36)
[2019-12-20] MEDS: MULTIVIT W/MINERALS 1 TAB TABLET GT SCH (09:36)
[2019-12-20] MEDS: MEMANTINE HCL 5 MG TABLET GT SCH ×2 (09:36→19:32)
[2019-12-20] MEDS: FAMOTIDINE/PF INJ 20 MG/2 ML VIAL IV SCH ×2 (09:37→20:30)
[2019-12-20] MEDS: PROSOURCE / PROSTAT (PYXIS) 30 ML UDC GT SCH (09:37)
[2019-12-20] MEDS: SULFAMETHOXAZOLE/TRIMETHOPRIM 10 ML in IV D5W 250 ML IV SCH ×2 (09:55→22:17)
[2019-12-20] MEDS: INSULIN REGULAR, HUMAN 100 UNIT/ML 3 ML VIAL SQ PRN ×2 (11:49→19:50)
[2019-12-20] MEDS: POTASSIUM CL. PREMIX PERIPHER. 50 ML IV SCH ×3 (14:30→15:30)
--- NOTE | 2019-12-20 17:45 | NUR ---
RT NOTE: PATIENT RECEIVED ORALLY INTUBATED WITH 8.0 ETT SECURED AT 23 CM ON PB 840 VENT. @1155-PATIENT'S ETT WAS ADVANCED (PER MD ORDER)TO 26CM AND SECURED WITH ANCHOR FAST. VENT ALARMS VERIFIED AND AUDIBLE. VENT PLUGGED INTO RED OUTLET. AMBU BAG AT [facility].
[2019-12-20] MEDS ORDERED: MEROPENEM 500 MG in IV NS 0.9% 50 ML IV SCH (18:00)
--- NOTE | 2019-12-20 19:00 | NUR ---
CEMENT CUTTER SHIFT SUMMARY Patient's abdominal incision continues to leak brownish/greenish drainage with foul odor. BILLY draining, see I/O. Seen by surgeon today. No acute distress noted throughout shift. Pending addiction social worker consult.
--- NOTE | 2019-12-20 20:00 | NUR ---
CUT FILE CLERK - NOTES - RECEIVED REPORT FROM DAY NURSE. SEE NURSING FLOWSHEET FOR ASSESSMENT. THERE ARE SOME SKIN ISSUES WHICH ARE ADDRESSED ON THE FLOWSHEET ALONG WITH THE INTERVENTIONS. PT ORALLY INTUBATED WITH SATURATION AT 96-98%. NO ACUTE DISTRESS SEEN AT THIS TIME, PT WAS TURNED AND REPOSITIONED FOR COMFORT AND CARE WILL CONTINUE TO MONITOR THIS PT. WILL MONITOR CLOSELY.
[2019-12-20] MEDS ORDERED: TPN BAG#4 IV PRN ×4 (22:00)
[2019-12-20] MEDS ORDERED: TPN BAG #4 IV PRN ×2 (22:00)
--- NOTE | 2019-12-20 22:13 | NUR ---
RECEIVED PT INTUBATED WITH 7.5 ETT SECURED AT 26CM AT THE LIP. NO RESP DISTRESS. PT TOLERATING VENT SETTINGS. VENT ALARMS SET AND AUDIBLE. AMBU BAG AT BEDSIDE. VENT PLUGGED INTO RED OUTLET. CONTINUE [facility] VENT SUPPORT. Addendum: 12/20/19 at 2215 by JOVANNY VEGA RT Amended: Links added.
[2019-12-21] VITALS (53 sets, daily range): BP systolic 73–142; BP diastolic 38–77
[2019-12-21] MEDS: BLOOD SUGAR DIAGNOSTIC 1 EACH STRIP IN SCH ×3 (00:46→12:05)
[2019-12-21] MEDS: PROPOFOL 100 ML IV PRN ×2 (04:41→15:59)
[2019-12-21 04:47] LABS: CALCIUM, SERUM 7.3 mg/dL (8.5-10.1); CARBON DIOXIDE 22 mmol/L (21-32); CHLORIDE 102 mmol/L (98-107); CREATININE 3.4 mg/dL (0.6-1.3); GLUCOSE 131 mg/dL (74-106); MAGNESIUM 1.8 mg/dL (1.8-2.4); PHOSPHORUS 3.1 mg/dL (2.5-4.9); POTASSIUM 2.9 mmol/L (3.5-5.1); SODIUM SERUM 136 mmol/L (136-145); UREA NITROGEN, BLOOD 48 mg/dL (7-18)
[2019-12-21] MEDS: METOCLOPRAMIDE HCL 10 MG/2 ML VIAL IV SCH ×2 (05:43→12:05)
[2019-12-21] MEDS: PHENYTOIN SODIUM IV 50 MG/ML VIAL IV SCH ×2 (05:43→12:05)
--- NOTE | 2019-12-21 08:45 | NUR ---
Social service consult requested by MELCHOR Wood to inquire if pt has family due to pt needing to be on comfort care. AUDITOR SUPERVISOR contacted [facility] and spoke with Daniel who informed AUDITOR SUPERVISOR that pt. has no family per their records. Prior to being at [facility], pt was at [facility] in [place]. Daniel informed AUDITOR SUPERVISOR they will accept pt back at their facility when medically cleared.
--- NOTE | 2019-12-21 08:45 | NUR ---
ICU/RN: Per Enrike, HD RN both HD access with poor flow. Unable to perform HD at this time. HD RN to inform rehabilitation caseworker.
[2019-12-21] MEDS: FAMOTIDINE/PF INJ 20 MG/2 ML VIAL IV SCH (08:54)
[2019-12-21] MEDS: HYDROCORTISONE SOD SUCCINATE 100 MG/2 ML VIAL IV SCH (08:54)
[2019-12-21] MEDS: ZINC SULFATE 220 MG CAPSULE GT SCH (08:54)
[2019-12-21] MEDS: PROSOURCE / PROSTAT (PYXIS) 30 ML UDC GT SCH (08:54)
[2019-12-21] MEDS: MULTIVIT W/MINERALS 1 TAB TABLET GT SCH (08:54)
[2019-12-21] MEDS: LEVETIRACETAM SOL (5 ML) 100 MG/ML UDC GT SCH (08:54)
[2019-12-21] MEDS: MEMANTINE HCL 5 MG TABLET GT SCH (08:54)
[2019-12-21] MEDS: HYDROGEL DRESSING 90 GM TUBE TP SCH (08:54)
[2019-12-21] MEDS: ASCORBIC ACID 500 MG TABLET GT SCH (08:54)
[2019-12-21] MEDS: risperiDONE LIQUID 1 MG/ML ML GT SCH (09:03)
[2019-12-21] MEDS: DAKINS QUARTER STRENGTH (0.125%) 480 ML BOTTLE TOP SCH (09:13)
[2019-12-21] MEDS: PHENYLEPHRINE 80 MG in IV D5W 250 ML IV PRN (10:19)
[2019-12-21] MEDS: SULFAMETHOXAZOLE/TRIMETHOPRIM 10 ML in IV D5W 250 ML IV SCH (11:53)
--- NOTE | 2019-12-21 12:30 | NUR ---
ICU/RN: Pt with unstable hemodynamics, requiring pressor support; desaturates upon turning and repositioning.
--- NOTE | 2019-12-21 13:30 | NUR ---
ICU/RN: Large amount of gastric purulent drainage throughout the day. Dr Chan, Dr Hope, RUKHSANA Piper aware. Pending bioethics meeting.
[2019-12-21] MEDS ORDERED: TPN BAG #5 IV PRN ×8 (14:30→14:39)
[2019-12-21] MEDS ORDERED: TPN BAG #6 IV PRN ×2 (15:00)
[2019-12-21] MEDS: THERAHONEY GEL 1.5 OZ TUBE TP SCH (15:43)
[2019-12-21] MEDS ORDERED: MORPHINE SULFATE INJ 4 MG/ML DISP.SYRIN IV ONE (17:00)
[2019-12-21] MEDS ORDERED: LORAZEPAM INJ 2 MG/ML VIAL IV PRN (17:00)
--- NOTE | 2019-12-21 17:00 | NUR ---
ICU/RN: Israel Garcia, INSURANCE ACCOUNT EXECUTIVE at bedside; social work job titles note reviewed with INSURANCE ACCOUNT EXECUTIVE; medical team in agreement that care is futile. Bioethics meeting held - pt will be placed on comfort care and be terminally extubated.
[2019-12-21] MEDS: SCOPOLAMINE HBR 1 EA PATCH.TD72 TD SCH (17:18)
--- NOTE | 2019-12-21 20:00 | NUR ---
SENIOR SECURITY ANALYST - NOTES - RECEIVED REPORT FROM DAY NURSE. SEE NURSING FLOWSHEET FOR ASSESSMENT. THERE ARE SOME SKIN ISSUES WHICH ARE ADDRESSED ON THE FLOWSHEET ALONG WITH THE INTERVENTIONS. PT WAS EXTUBATED TODAY AND NOW ON COMFORT CARE WITH SATURATION AT 96-98%. PT WAS TURNED AND REPOSITIONED FOR COMFORT AND CARE WILL CONTINUE TO MONITOR THIS PT. WILL MONITOR CLOSELY.
[2019-12-21 20:03] LABS: BAND % (MANUAL) 4 % (0.0-5.0); NEUTROPHILS % (MANUAL) 84 (42-76)
[2019-12-21 20:04] LABS: LYMPHOCYTES % (MANUAL) 6 % (16-48); MONOCYTES % (MANUAL) 6 % (0-11.0)
[2019-12-21] MEDS ORDERED: IV NS 0.9% 250 ML IV PRN (22:30)
--- NOTE | 2019-12-21 23:00 | NUR ---
MSRN RECEIVED VIA BED 73 Y/O MALE FROM ICU , WITH MORPHINE DRIP SET AT 2MG/HR INFUSING VIA RIGHT UPPER ARM MIDLINE. OBTUNDED, 02 2 L VIA NC. NO RESPIRATORY DISTRESS, COMFORT MEASURES ONLY. HOB 30 DEGREES, NEED CLOSE MONITORING.BILLY DRAIN WITH MINIMUM AMOUNT OF LIGHT BROWNISH CLOUDY DRAINAGE, ABD DRESSING INTACT. REPOSITIONED KEPT COMFORTABLE. CLOSELY WATCHED. BEDSIDE REPORT GIVEN.
--- NOTE | 2019-12-21 23:00 | NUR ---
PT TRANSFERRED TO [facility]- FOR COMFORT MEASURES ONLY
--- NOTE | 2019-12-22 06:00 | NUR ---
MSRN AM CARE STARTED, ABDOMINAL WOUND WITH LARGE AMOUNT OF BROWNISH PUS . BILLY DRAIN WITH 40 CC BROWNISH PUS LIKE FOUL SMELLING. GT SITE CLEAN. BOTH ARMS SWOLLEN ELEVATED ON PILLOWS. REPOSITIONED, MORPHINE DRIP AT 2 MG INFUSING WELL. KEPT COMFORTABLE.
[2019-12-22 08:00] VITALS: BP 81/36
--- NOTE | 2019-12-22 08:13 | NUR ---
MS/RN OPENING NOTES RECEIVED PATIENT LYING ON BED. PATIENT HAVE MORPHINE DRIP SET AT 2MG/HR INFUSING VIA RIGHT UPPER ARM MIDLINE. OBTUNDED, 02 2 L VIA NC. NO RESPIRATORY DISTRESS NOTED, COMFORT MEASURES ONLY. HOB 30 DEGREES, NEED CLOSE MONITORING.BILLY DRAIN WITH MINIMUM AMOUNT OF LIGHT BROWNISH CLOUDY DRAINAGE, ABD DRESSING INTACT. REPOSITIONED KEPT COMFORTABLE. WILL CONTINUE TO MONITOR.
[2019-12-22 15:43] VITALS: BP 83/36
--- NOTE | 2019-12-22 18:50 | NUR ---
MS/RN CLOSING NOTES RECEIVED PATIENT LYING ON BED. PATIENT HAVE MORPHINE DRIP SET AT 2MG/HR INFUSING VIA RIGHT UPPER ARM MIDLINE. OBTUNDED, 02 2 L VIA NC. NO RESPIRATORY DISTRESS NOTED, COMFORT MEASURES ONLY. HOB 30 DEGREES, NEED CLOSE MONITORING. BILLY DRAIN WITH MINIMUM AMOUNT OF LIGHT BROWNISH CLOUDY DRAINAGE, ABD DRESSING CHANGED CLEAN AND DRY. REPOSITIONED KEPT COMFORTABLE. SEEN BY MD. WILL ENDORSED TO COUNTY TREASURER FOR LUISA.
--- NOTE | 2019-12-22 19:05 | NUR ---
rn ms opening notes received patient in bed head of bed elevated for aspiration precautions. currently on morphine drip for comfort measures set at 2mg/hr. infusing to right upper arm.no redness,no infiltration present, dressing is clean dry and intact. patient appears comfortable on 2 l via nc, obtunded, martinez catheter intact , call light kept within reach, safety precautions in place,low bed and locked, all needs attended at this time, will continue to monitor for any changes.
[2019-12-22 20:00] VITALS: BP 105/44
--- NOTE | 2019-12-22 20:11 | NUR ---
rn ms notes patient morphine drip bag and tubing changed morphine drip increase to 3mg/hr for comfort noted increase respirations at 24 appears to be in slight discomfort. wasted 53cc from previous morphine bag,witnessed and wasted with another rn , dispensed to narcotic waste bin. will continue to monitor for effectiveness and comfort. new infusion co signed and infused with another rn.
--- NOTE | 2019-12-23 06:32 | NUR ---
rn ms closing notes patient in bed head of bed elevated for aspiration precautions. currently on morphine drip for comfort measures set at 3mg/hr. infusing to right upper arm.no redness,no infiltration present, dressing is clean dry and intact. patient appears comfortable at this time. noted 3mg/hr effective. on 2 l via nc tolerating well. obtunded, martinez catheter intact 10 cc output bernardo color, call light kept within reach, safety precautions in place,low bed and locked, all needs attended at this time, will continue to monitor for any changes and endorse to next shift, patient cleansed and wound care done as ordered, affected wound sites offloaded. kalin drain noted 5cc purulent output.
--- NOTE | 2019-12-23 07:38 | NUR ---
MS RN NOTES RECEIVED PATIENT IN BED, ASLEEP. PATIENT ON OXYGEN THERAPY AT 2 LMP VIA NASAL CANNULA. BREATHING EVEN AND UNLABORED. PATIENT IS ON MORPHINE DRIP FOR COMFORT MEASURES SET AT 3 MG/HR AT [facility]. NO SIGNS OF PAIN SUCH FACIAL GRIMACING, MOANING OR GUARDING. LE CATHETER IN PLACE DRAINING NADIRA COLOR URINE. L AND R UPPER ARM MIDLINE. PERMA CATH L GROIN. SAFETY PRECAUTIONS IN PLACE: BED IN LOW POSITION AND LOCKED, RAILS UP X2, HOB ELEVATED AT 35 DEGREES FOR ASPIRATION PRECAUTIONS, CALL LIGHT WITHIN REACH. WILL CONTINUE TO MONITOR PATIENT.
[2019-12-23 08:00] VITALS: BP 67/32
--- NOTE | 2019-12-23 12:20 | NUR ---
MS RN NOTES MORPHINE DRIP INCREASED FROM 3MG/HR TO 5 MG/HR THEN FROM 5 MG/HR FOR COMFORT MEASURES; PATIENT WAS MOANING. APPEARS TO BE IN DISCOMFORT. WILL CONTINUE TO MONITOR PATIENT.
[2019-12-23] MEDS ORDERED: KEY,NONCONTROL,TO KEEP IN PYXI 1 EA MC ONE ×5 (14:54→21:34)
--- NOTE | 2019-12-23 14:55 | NUR ---
MS RN NOTES MORPHINE DRIP INCREASE FROM 5 MG/HR TO 7 MG/HR FOR COMFORT MEASURES. PATIENT CONTINUED TO MOAN. APPEARED TO BE IN DISCOMFORT. WILL CONTINUE TO MONITOR PATIENT.
[2019-12-23 15:38] VITALS: BP 61/25
--- NOTE | 2019-12-23 16:40 | NUR ---
MS RN NOTES DURING DRESSING CHANGE PATIENT STARTED TO MAKE NOISES AND CONTINUED TO MOAN. LOOKS LIKE HE WAS IN PAIN SINCE HIS WOUND WAS DRAINING BROWN LIQUIDS. MORPHINE DRIP INCREASE FROM 7MG/HR TO 9MG/HR FOR COMFORT MEASURES. CHARGE NURSE AWARE. WASTED 23 CC FROM PREVIOUS MORPHINE BAG, WITNESSED AND WASTED WITH ANOTHER RN. DISPENSE TO NARCOTIC WASTE BIN. NEW INFUSION CO-SIGNED AND INFUSED WITH ANOTHER RN.
--- NOTE | 2019-12-23 18:59 | NUR ---
MS RN NOTES MORPHINE DRIP INCREASED FROM 9MG/HR TO 11 MG/HR FOR COMFORT MEASURES; CHARGE NURSE AWARE. PATIENT WAS MOANING. APPEARS TO BE IN DISCOMFORT. WILL CONTINUE TO MONITOR PATIENT.
--- NOTE | 2019-12-23 19:06 | NUR ---
MS RN CLOSING NOTES PATIENT IN BED, ASLEEP, NON-VERBAL. ON OXYGEN THERAPY AT 2 LMP VIA NASAL CANNULA. BREATHING EVEN AND UNLABORED. DURING THE DAY WAS MOANING A FEW TIMES. PATIENT IS ON MORPHINE DRIP FOR COMFORT MEASURES RIGHT NOW AT 11 MG/HR AT [facility]. NO SIGNS OF PAIN AT THIS MOMENT SUCH FACIAL GRIMACING, MOANING OR GUARDING. LE CATHETER IN PLACE DRAINING NADIRA COLOR URINE. L AND R UPPER ARM MIDLINE. PERMA CATH L GROIN. SAFETY PRECAUTIONS IN PLACE: BED IN LOW POSITION AND LOCKED, RAILS UP X2, HOB ELEVATED AT 35 DEGREES FOR ASPIRATION PRECAUTIONS, CALL LIGHT WITHIN REACH. WILL ENDORSE TO MINGLE OPERATOR NURSE.
--- NOTE | 2019-12-23 19:10 | NUR ---
MS RN NOTES RECEIVED PT IN BED AND ASLEEP. RESPIRATIONS EVEN AND UNLABORED WITH NO S/S OF ACUTE DISTRESS OR SOB NOTED, ON OXYGEN THERAPY AT 2 LMP VIA NASAL CANNULA. PT NOTED ON COMFORT MEASURES AND ON MORPHINE DRIP FOR COMFORT MEASURES SET AT 11 MG/HR. NO S/S OF PAIN AT THIS TIME. PT NOTED WITH LE CATHETER IN PLACE DRAINING WELL. PT NOTED WITH L AND R UPPER ARM MIDLINE, AND RIJ. PT NOTED WITH PERMA CATH L GROIN. SAFETY MEASURES IN PLACE WITH BED IN LOWEST LOCKED POSITION WITH SIDE RAILS UP X2. CALL LIGHT WITHIN REACH. WILL CONTINUE TO MONITOR.
[2019-12-23 20:00] VITALS: BP 95/49
--- NOTE | 2019-12-23 20:00 | NUR ---
MS RN NOTES MORPHINE INCREASED TO 12MG/HR. WILL CONTINUE TO MONITOR.
--- NOTE | 2019-12-23 21:26 | NUR ---
MS RN NOTES MORPHINE INCREASED TO 13MG/HR. WILL CONTINUE TO MONITOR.
--- NOTE | 2019-12-23 22:47 | NUR ---
MS RN NOTES MORPHINE INCREASED TO 14MG/HR. WILL CONTINUE TO MONITOR.
--- NOTE | 2019-12-24 | NUR ---
MS DOMINGUEZ NOTES MORPHINE INCREASED TO 14MG/HR. WILL CONTINUE TO MONITOR. Addendum: 12/24/19 at 0018 by JAD MATTSON RN MS DOMINGUEZ NOTES MORPHINE INCREASED TO 15MG/HR. WILL CONTINUE TO MONITOR.
[2019-12-24] MEDS ORDERED: KEY,NONCONTROL,TO KEEP IN PYXI 1 EA MC ONE ×3 (01:22→21:11)
--- NOTE | 2019-12-24 07:15 | NUR ---
M/S RN NOTES PT RESTING IN BED, PATIENT COMFORTABLE, NO ACUTE DISTRESS, NO S/S OF PAIN OR DISCOMFORT. PATIENT ON O2 AT 2L VIA NASAL CANULA. RESPIRATIONS EVEN AND UNLABORED WITH NO S/S OF ACUTE DISTRESS OR SOB NOTED, ON OXYGEN THERAPY AT 2 LMP VIA NASAL CANNULA. PATIENT ON COMFORT MEASURES. PATIENT ON MORPHINE DRIP INFUSING AT 15MG/HR, PATIENT WITH F/C INTACT AND DRAINING WELL. PATIENT ACCESS SITES INTACT AND PATENT, PERMA CATH ON THE LT GROIN. PATIENT'S NEEDS ATTENDED, BED ON LOWEST LOCKED POSITION, SIDE RAILS UP X2. WILL CONTINUE OT MONITOR.
--- NOTE | 2019-12-24 07:31 | NUR ---
MS RN NOTES PT IN BED AND ASLEEP. RESPIRATIONS EVEN AND UNLABORED WITH NO S/S OF ACUTE DISTRESS OR SOB NOTED THROUGHOUT SHIFT, ON OXYGEN THERAPY AT 2 LMP VIA NASAL CANNULA. PT NOTED ON COMFORT MEASURES AND ON MORPHINE DRIP FOR COMFORT MEASURES SET AT 15 MG/HR. NO S/S OF PAIN AT THIS TIME. PT KEPT CLEAN, DRY, AND COMFORTABLE. PT NOTED WITH LE CATHETER IN PLACE DRAINING WELL. PT NOTED WITH L AND R UPPER ARM MIDLINE, AND RIJ. PT NOTED WITH PERMA CATH L GROIN. SAFETY MEASURES IN PLACE WITH BED IN LOWEST LOCKED POSITION WITH SIDE RAILS UP X2. CALL LIGHT WITHIN REACH. WILL ENDORSE TO ONCOMING NURSE FOR LUISA.
[2019-12-24 08:00] VITALS: BP 44/28
[2019-12-24] MEDS ORDERED: MORPHINE SULFATE PF DRIP 100 MG in IV D5W 96 ML IV PRN (08:30)
--- NOTE | 2019-12-24 09:30 | NUR ---
M/S RN NOTES PATIENT APPEARS TO BE IN DISCOMFORT, RESPIRATIONS AT 9, INCREASED MORPHINE DRIP FROM 15MG/HR TO 17MG/HR. WILL CONTINUE TO MONITOR.
--- NOTE | 2019-12-24 15:00 | NUR ---
M/S RN NOTES PATIENT'S MORPHINE DRIP INCREASED FROM 17MG/HR TO 19MG/HR DUE TO PATIENT'S DISCOMFORT. PATIENT AT TIMES GASPING FOR AIR. WILL CONTINUE TO MONITOR PATIENT.
[2019-12-24 16:00] VITALS: BP 40/22
[2019-12-24] MEDS: SCOPOLAMINE HBR 1 EA PATCH.TD72 TD SCH (17:52)
--- NOTE | 2019-12-24 18:30 | NUR ---
M/S RN NOTES STARTED ANOTHER MORPHINE 250ML BAG, INFUSING AT 20MG/HR. CHARGE NURSE AWARE. PATIENT WITH NO S/S OF DISCOMFORT. WILL ENDORSE TO ONCOMING NURSE.
--- NOTE | 2019-12-24 19:00 | NUR ---
COMFORT MEASURE ISOLATION CONTACT ORDERED MORPHINE DRIP AT 20MG HR . PATIENT OBTUNDENT. BAH WARM COLOR YOUNG PALE RESP 12 MIN SHALLOW.
--- NOTE | 2019-12-24 19:30 | NUR ---
M/S RN NOTES PATIENT IN BED. ON COMFORT CARE. MORPHINE DRIP INFUSING AT 20MG/HR. PATIENT IN NO RESPIRATORY DISTRESS, ON O2 AT 2LPM. PATIENT WITH NO S/S OF DISCOMFORT. IV ACCESS SITES INTACT AND PATENT. F/C INTACT AND DRAINING WELL. WILL ENDORSE TO ONCOMING NURSE.
[2019-12-25] MEDS ORDERED: KEY,NONCONTROL,TO KEEP IN PYXI 1 EA MC ONE ×3 (00:22→12:13)
--- NOTE | 2019-12-25 06:40 | NUR ---
ENDING NOTES: COMFORT CARE ON MORPHINE GTT 25MG/HR RESP RATE 6 - 8 MIN SHALLOW NONVERBAL ISOLATION CONTACT ORDERED.
--- NOTE | 2019-12-25 07:30 | NUR ---
MS RN NOTES RECEIVED PATIENT ON MORPHINE DRIP @ 25MG/HR ORDERED VIA RIGHT UPPER ARM MIDLINE. REMAIN ON COMFORT MEASURES. HOB ELEVATED. PATIENT WITH SHALLOW BREATHING. MADE PATIENT COMFORTABLE IN BED. BED IN LOWEST POSITION, LOCKED. BED SIDERAILS UP X2. FREQUENT VISUAL CHECK.
--- NOTE | 2019-12-25 07:45 | NUR ---
MS RN NOTES PATIENT RESTING COMFORTABLY IN BED. REMAIN ON MORPHINE DRIP AT 25MG/HR. STILL WITH SHALLOW BREATHING. FREQUENT VISUAL CHECK DONE.
--- NOTE | 2019-12-25 08:15 | NUR ---
MS RN NOTES PATIENT RESTING COMFORTABLY IN BED. REMAIN ON MORPHINE DRIP AT 25MG/HR. STILL WITH SHALLOW BREATHING. FREQUENT VISUAL CHECK DONE. IN NO APPARENT DISTRESS.
--- NOTE | 2019-12-25 08:35 | NUR ---
MS RN NOTES CALLED [facility] AND SPOKE TO NICHOLAS KRISHNA. PER TOMI PATIENT IS UNDER BIOETHICS COMMITTEE AND PATIENT DOES NOT HAVE ANY FAMILY MEMBERS SINCE PATIENT HAS BEEN ADMITTED AT [facility].
--- NOTE | 2019-12-25 08:40 | NUR ---
MS RN NOTES NOTED PATIENT UNRESPONSIVE, NO PULSE, NO RESPIRATION, NO HEART AND BREATH SOUNDS UPON AUSCULTATION. IAN MADE AWARE. DR. VILLELA AWARE. INDWELLING CATHETER AND IV ACCESS DEVICE REMOVED AND COVERED WITH GAUZE DRESSING AND WOUND CARE RENDERED. PATIENT WITH NO BELONGINGS.
--- NOTE | 2019-12-25 09:03 | NUR ---
MS RN NOTES CALLED [employer] AND SPOKE TO JESSICA LOPEZ THEY DECLINED AND WILL NOT FORWARD WITH THE DONATION AND BODY CAN BE RELEASED TO MORTUARY. REFERRAL NUMBER [id number].
--- NOTE | 2019-12-25 09:05 | NUR ---
MS RN NOTES POST MORTEM CARE DONE.
--- NOTE | 2019-12-25 10:30 | NUR ---
MS RN NOTES PATIENT'S BODY PICKED UP AND BROUGHT TO [facility] [place], [place].
== END 2019-12-25 08:40 | disposition expired | DRG 853 ==
LOC: ER 12:50 → MEDSG1 14:08 → TELE-TD 17:47 → TELE1 12-05 09:03 → ICU 12-06 11:20 → TELE1 12-07 21:15 → MEDSG1 12-08 12:44 → TELE1 12-09 18:14 → TELE-TD 12-10 11:33 → ICU 12-10 18:44 → MED 12-21 23:01
PROVIDERS: ADMIT Internal Medicine; ATTEND Nurse Practitioner Acute Care
PROC: 0DH60UZ Insertion of Feeding Device into Stomach, Open Approach (ICD-10-PCS; principal; 2019-12-06)
PROC: 0DP60UZ Removal of Feeding Device from Stomach, Open Approach (ICD-10-PCS; principal; 2019-12-06)
PROC: 05HA33Z Insertion of Infusion Device into Left Brachial Vein, Percutaneous Approach (ICD-10-PCS; principal; 2019-12-06)
PROC: 30233N1 Transfusion of Nonautologous Red Blood Cells into Peripheral Vein, Percutaneous Approach (ICD-10-PCS; principal; 2019-12-06)
PROC: B543ZZA Ultrasonography of Right Jugular Veins, Guidance (ICD-10-PCS; 2019-12-07)
PROC: 05HM33Z Insertion of Infusion Device into Right Internal Jugular Vein, Percutaneous Approach (ICD-10-PCS; 2019-12-07)
PROC: 5A1D70Z Performance of Urinary Filtration, Intermittent, Less than 6 Hours Per Day (ICD-10-PCS; 2019-12-08)
PROC: 5A1955Z Respiratory Ventilation, Greater than 96 Consecutive Hours (ICD-10-PCS; 2019-12-10)
PROC: 0DH60UZ Insertion of Feeding Device into Stomach, Open Approach (ICD-10-PCS; 2019-12-10)
PROC: 0DP60UZ Removal of Feeding Device from Stomach, Open Approach (ICD-10-PCS; 2019-12-10)
PROC: 0DB60ZZ Excision of Stomach, Open Approach (ICD-10-PCS; 2019-12-10)
PROC: 02HV33Z Insertion of Infusion Device into Superior Vena Cava, Percutaneous Approach (ICD-10-PCS; 2019-12-11)
PROC: B548ZZA Ultrasonography of Superior Vena Cava, Guidance (ICD-10-PCS; 2019-12-11)
PROC: 06HN33Z Insertion of Infusion Device into Left Femoral Vein, Percutaneous Approach (ICD-10-PCS; 2019-12-15)
PROC: 0JHM3XZ Insertion of Tunneled Vascular Access Device into Left Upper Leg Subcutaneous Tissue and Fascia, Percutaneous Approach (ICD-10-PCS; 2019-12-15)
PROC: B54CZZA Ultrasonography of Left Lower Extremity Veins, Guidance (ICD-10-PCS; 2019-12-15)
PROC: 0KBN0ZZ Excision of Right Hip Muscle, Open Approach (ICD-10-PCS; 2019-12-17)
PROC: 0KBS0ZZ Excision of Right Lower Leg Muscle, Open Approach (ICD-10-PCS; 2019-12-17)
PROC: 0KBT0ZZ Excision of Left Lower Leg Muscle, Open Approach (ICD-10-PCS; 2019-12-17)
PROC: 0KBF0ZZ Excision of Right Trunk Muscle, Open Approach (ICD-10-PCS; 2019-12-17)
PROC: 0KBP0ZZ Excision of Left Hip Muscle, Open Approach (ICD-10-PCS; 2019-12-17)
DX: A41.9 Sepsis, unspecified organism (principal); J96.01 Acute respiratory failure with hypoxia; E43 Unspecified severe protein-calorie malnutrition; Z66 Do not resuscitate; Z51.5 Encounter for palliative care; N17.0 Acute kidney failure with tubular necrosis; K65.1 Peritoneal abscess; R65.21 Severe sepsis with septic shock; L89.154 Pressure ulcer of sacral region, stage 4; L89.894 Pressure ulcer of other site, stage 4; L89.223 Pressure ulcer of left hip, stage 3; L89.513 Pressure ulcer of right ankle, stage 3; L89.613 Pressure ulcer of right heel, stage 3; G92 Toxic encephalopathy; K25.5 Chronic or unspecified gastric ulcer with perforation; N18.6 End stage renal disease; J12.9 Viral pneumonia, unspecified; K94.23 Gastrostomy malfunction; J90 Pleural effusion, not elsewhere classified; R40.3 Persistent vegetative state; E87.2 Acidosis; N39.0 Urinary tract infection, site not specified; E87.1 Hypo-osmolality and hyponatremia; I12.0 Hypertensive chronic kidney disease with stage 5 chronic kidney disease or end stage renal disease; I48.92 Unspecified atrial flutter; R18.8 Other ascites; R64 Cachexia; J98.11 Atelectasis; Z99.11 Dependence on respirator [ventilator] status; F03.91 Unspecified dementia, unspecified severity, with behavioral disturbance; I38 Endocarditis, valve unspecified; M84.452A Pathological fracture, left femur, initial encounter for fracture; Z16.24 Resistance to multiple antibiotics; I48.91 Unspecified atrial fibrillation; E83.42 Hypomagnesemia; G40.909 Epilepsy, unspecified, not intractable, without status epilepticus; E86.0 Dehydration; Y83.3 Surgical operation with formation of external stoma as the cause of abnormal reaction of the patient, or of later complication, without mention of misadventure at the time of the procedure; Y92.129 Unspecified place in nursing home as the place of occurrence of the external cause; E87.5 Hyperkalemia; E87.6 Hypokalemia; I70.0 Atherosclerosis of aorta; I71.4 Abdominal aortic aneurysm, without rupture; M51.37 Other intervertebral disc degeneration, lumbosacral region; N28.1 Cyst of kidney, acquired; R13.10 Dysphagia, unspecified; Z79.82 Long term (current) use of aspirin; Z79.899 Other long term (current) drug therapy; K74.60 Unspecified cirrhosis of liver; Z99.2 Dependence on renal dialysis; Z86.73 Personal history of transient ischemic attack (TIA), and cerebral infarction without residual deficits; Z86.718 Personal history of other venous thrombosis and embolism; D63.8 Anemia in other chronic diseases classified elsewhere; F03.90 Unspecified dementia, unspecified severity, without behavioral disturbance, psychotic disturbance, mood disturbance, and anxiety; D69.59 Other secondary thrombocytopenia; D72.810 Lymphocytopenia; M85.80 Other specified disorders of bone density and structure, unspecified site; M62.562 Muscle wasting and atrophy, not elsewhere classified, left lower leg; M62.561 Muscle wasting and atrophy, not elsewhere classified, right lower leg; B96.1 Klebsiella pneumoniae [K. pneumoniae] as the cause of diseases classified elsewhere; B95.1 Streptococcus, group B, as the cause of diseases classified elsewhere
CPT/HCPCS: 31720; 36410; 36415; 36600; 71045-TC; 74018; 74246-TC; 80048-TC; 80053-TC; 80076-TC; 80185-TC; 80202-TC; 81000-TC; 82272-TC; 82550-TC; 82728-TC; 82803-TC; 82962-TC; 83540-TC; 83605-TC; 83735-TC; 83970; 84100-TC; 84155; 84165; 84443-TC; 84478-TC; 84484-TC; 85025-TC; 85610-TC; 85730-TC; 86706; 86850-TC; 86921-TC; 87040-TC; 87070-TC; 87075-TC; 87081-TC; 87086-TC; 87186-TC; 87340; 88307-TC; 90935-TC; 93307-TC; 94003-TC; 94760-TC; 94799-TC; 99082-TC; A4216; A4217; A6209; A6248; A6253; A6403; C1750; C1751; C1769; G0378; J0282; J0692; J1160; J1165; J1720; J1815; J1953; J2060; J2185; J2250; J2270; J2274; J2370; J2405; J2543; J2704; J2765; J2997; J3010; J3370; J3480; J3490; J7030; J7050; J7060; J8597; P9016-BL; P9047; Q9963; Q9967